=== PATIENT | female | born 1975 | race Caucasian/White ===

== ENCOUNTER 2018-02-24 13:40 | Emergency (ER) | payer MEDICAID, SELFPAY ==
[2018-02-24 13:41] VITALS: BP 137/82; PULSE 60; RESP 18; TEMP 36.6; O2SAT 97; BMI 47.9
--- NOTE | 2018-02-24 13:57 | ED.VISSUMM ---
- ER Visit Summary Date of Service: 02/24/18 Chief Complaint: Sore throat ?1 month and blood noted in spit History of Present Illness: The patient is a 42 F who reports sore throat for the past month. She localizes the discomfort to the larynx region. He has not noted change in voice. There is been no drooling. There is no pain with swallowing. She denies night sweats, weight gain or weight loss. She states she rinsed her dentures and when she expectorated she noted blood. She states she did not brush her lower teeth. She is concerned that the blood may represent cancer since she had a recent biopsy of a facial lesion which was positive for cancer. Patient denies any double vision, blurred vision or change in vision. She denies earache. Discharge, tinnitus or decreased hearing. She denies nasal congestion, rhinorrhea or postnasal drainage. She denies any chest pain, shortness of breath or difficulty breathing. She denies bruising easily or problems with bleeding. She is on no anticoagulant. Physical Examination: Vital signs are remarkable for slight elevation blood pressure 137/82. BMI is 47.9. Head is atraumatic normocephalic. Pupils are equal round reactive. Extraocular muscles are intact. TMs are pearly white with landmarks noted. Nares patent with no drainage. Posterior pharynx without erythema or exudate. Uvula is midline. There is no dysphonia or dysphasia. Trachea is midline. There is no stridor with auscultation of the neck. There is no discomfort with movement of the larynx. Heart is regular without murmur, gallop or rub. S1 and S2 are normal. Lungs are clear to auscultation with good movement of air bilaterally. She is alert and oriented with a nonfocal neurologic exam. She has a well-healing incision right maxillary region secondary to skin biopsy. Test Results: Two-view soft tissue x-ray of the neck reveals a normal epiglottis, normal prevertebral space. Normal cervical vertebral bodies and no evidence of enlarged lingular tonsils. Emergency Department Course and Treatment: Because patient points to the larynx reported blood will obtain soft tissue neck looking for evidence of epiglottitis, retropharyngeal abscess parapharyngeal swelling etc. Treatment Plan: Follow-up with Dr. Rhoades Disposition: Discharged to home Impression: Throat pain ?1 month Expectorated blood unknown cause This note was generated with [employer] dictation software. It may contain incorrect words, spelling, and punctuation that were not noted in review of the chart prior to signing ED Disposition - Plan for ED Patient: Disposition: Home or Assisted Living Chief Complaint: Sore Throat Instructions: ED Acute Pain [facility] Referrals: Nanci Rhoades MD [Primary Care Provider] - 3-5 Days if not improving
--- NOTE | 2018-02-24 14:00 | ED.DCSUM_ITS ---
- ER Visit Summary Date of Service: 02/24/18 Chief Complaint: Sore throat ?1 month and blood noted in spit History of Present Illness: The patient is a 42 F who reports sore throat for the past month. She localizes the discomfort to the larynx region. He has not noted change in voice. There is been no drooling. There is no pain with swallowing. She denies night sweats, weight gain or weight loss. She states she rinsed her dentures and when she expectorated she noted blood. She states she did not brush her lower teeth. She is concerned that the blood may represent cancer since she had a recent biopsy of a facial lesion which was positive for cancer. Patient denies any double vision, blurred vision or change in vision. She denies earache. Discharge, tinnitus or decreased hearing. She denies nasal congestion, rhinorrhea or postnasal drainage. She denies any chest pain, shortness of breath or difficulty breathing. She denies bruising easily or problems with bleeding. She is on no anticoagulant. Physical Examination: Vital signs are remarkable for slight elevation blood pressure 137/82. BMI is 47.9. Head is atraumatic normocephalic. Pupils are equal round reactive. Extraocular muscles are intact. TMs are pearly white with landmarks noted. Nares patent with no drainage. Posterior pharynx without erythema or exudate. Uvula is midline. There is no dysphonia or dysphasia. Trachea is midline. There is no stridor with auscultation of the neck. There is no discomfort with movement of the larynx. Heart is regular without murmur, gallop or rub. S1 and S2 are normal. Lungs are clear to auscultation with good movement of air bilaterally. She is alert and oriented with a nonfocal neurologic exam. She has a well-healing incision right maxillary region secondary to skin biopsy. Test Results: Two-view soft tissue x-ray of the neck reveals a normal epiglottis , normal prevertebral space. Normal cervical vertebral bodies and no evidence of enlarged lingular tonsils. Emergency Department Course and Treatment: Because patient points to the larynx reported blood will obtain soft tissue neck looking for evidence of epiglottitis , retropharyngeal abscess parapharyngeal swelling etc. Treatment Plan: Follow-up with Dr. Rhoades Disposition: Discharged to home Impression: Throat pain ?1 month Expectorated blood unknown cause This note was generated with [employer] dictation software. It may contain incorrect words, spelling, and punctuation that were not noted in review of the chart prior to signing ED Disposition - Plan for ED Patient: Disposition: Home or Assisted Living Chief Complaint: Sore Throat Instructions: ED Acute Pain [facility] Referrals: Nanci Rhoades MD [Primary Care Provider] - 3-5 Days if not improving
--- NOTE | 2018-02-24 14:05 | RAD_ITS ---
STUDY: X-RAY - SOFT TISSUE NECK REASON FOR EXAM: Female, 42 years old. One month history of sore throat. Hemoptysis. TECHNIQUE: AP and lateral view(s) of the neck were obtained. COMPARISON: None. FINDINGS: Normal visualized nasopharynx, oropharynx, hypopharynx. Normal epiglottis. Normal visualized subglottic tracheal air column. Normal prevertebral soft tissue structures. There are degenerative changes of the cervical spine with cervical spondylosis. Straightening of the normal lumbar lordosis. The soft tissue structures are unremarkable. RAD/Neck for Soft Tissue IMPRESSION: Degenerative changes of the cervical spine. Electronically Signed: Jameel Hernandez MD at 14:32 EDT Tel [phone], Service support ,
[2018-02-24 16:01] VITALS: BP 129/79; PULSE 54; RESP 16; O2SAT 96
== END 2018-02-24 16:03 | disposition home or self-care (01) ==
PROVIDERS: Emergency Provider Emergency Medicine; Family Provider Internal Medicine; PCP Internal Medicine
DX: R07.0 Pain in throat (principal); E66.9 Obesity, unspecified; F41.9 Anxiety disorder, unspecified; M54.2 Cervicalgia; Z85.828 Personal history of other malignant neoplasm of skin
CPT/HCPCS: 70360; 99282

== ENCOUNTER 2018-05-11 01:49 | Emergency (ER) | payer OTHER, SELFPAY ==
[2018-05-11 01:51] VITALS: BP 144/91; PULSE 88; RESP 20; TEMP 36.8; O2SAT 94; BMI 51.2
--- NOTE | 2018-05-11 02:03 | ED.VISSUMM ---
- ER Visit Summary Date of Service: 05/11/18 Chief Complaint: Left neck mass and chest pain History of Present Illness: The patient is a [address] Rhoades. She reports she has a lump on the left side of her neck that began approximately 1 week ago. Is been gradually increasing. She has a sharp pain that is 8 out of 10 with swallowing and 5 out of 10 when she is at rest. She denies any dental pain. She denies a sore throat. Patient reports that she has chest pain that is substernal began at 5 PM while she was anxious. This been a constant pressure that is not 10 at worst and 2 out of 10 currently. Is worsened by stress. It is relieved by relaxing. She does report she been mildly short of breath with this. No nausea, vomiting, or diaphoresis. Patient reports that she has been under a great deal of stress recently. She states that she had been on Celexa and BuSpar for anxiety and depression and that she stopped these on her own 1 month ago. She also reports that she has had similar symptoms with the chest pain with anxiety in the past. Physical Examination: Vitals: Stable. Afebrile. General: Well-nourished and well-developed. Head: Normocephalic atraumatic. HEENT: Pharyngeal erythema. No tonsillar exudate or enlargement. There is a approximately 1 cm tender anterior lymph node on the left. No pain with percussion her teeth. No focal abscess. No trismus. No edema in the floor of her mouth. Neck: Supple, no lymphadenopathy. No JVD. Nontender. Cardiovascular: Regular rate and rhythm. No murmurs. Respiratory: No respiratory distress. Clear to auscultation bilaterally. Abdominal: Soft, nontender, nondistended, normal bowel sounds. No guarding, rebound, or peritoneal signs. Back: Nontender. Extremities: Nontender, no edema. Skin: Normal color, no rash. Neurologic: Alert and oriented ?3. Cranial nerves II through XII are intact. Normal strength and sensation. Psych: Normal affect. Test Results: EKG is sinus at 69 is unchanged from 2008. Troponin is negative. Chem-7 is more for glucose 124. CBC is more for white count of 12.3. Strep is negative. Chest x-ray is normal. Emergency Department Course and Treatment: Patient was treated Toradol IV and is resting comfortably. Had a prolonged discussion with her about the etiology of the enlarged lymph node on the left. She was treated with a dose of amoxicillin p.o. Treatment Plan: Patient will be discharged on amoxicillin. I instructed her to follow-up her primary care physician 1 week for a repeat exam. She does understand if this is not improving with antibiotics ultimately she could require a biopsy of this to make sure that it is not a lymphoma. Also instructed follow-up her primary care physician for further evaluation of her chest pain. However, in the meantime I think that she should restart her BuSpar and Celexa. Return to the emergency department for any worsening symptoms. Disposition: To home in improved and stable condition. Impression: 1. Atypical chest pain. 2. Cervical adenitis. 3. GISSELL score of 0. This note was generated with [employer] dictation software. It may contain incorrect words, spelling, and punctuation that were not noted in review of the chart prior to signing ED Disposition - Plan for ED Patient: Disposition: Home or Assisted Living Chief Complaint: Chest Pain Instructions: ED Cervical Adenitis Abx Tx, ED Chest Pain Atypical Unkn Cause Prescriptions: Amoxicillin 500 mg PO TID #30 tablet Referrals: Nanci Rhoades MD [Primary Care Provider] - 1 Week
--- NOTE | 2018-05-11 02:15 | EKG12_ITS ---
Test Reason : CP Blood Pressure : / mmHG Vent. Rate : 069 BPM Atrial Rate : 069 BPM P-R Int : 142 ms QRS Dur : 082 ms QT Int : 398 ms P-R-T Axes : 030 019 014 degrees QTc Int : 426 ms Normal sinus rhythm with sinus arrhythmia Normal ECG Confirmed by RADHA GUY, OXANA ([id number]), slot editor MARCIA COE ([id number]) on 05/15/2018 3:40:17 PM Referred By: CRISS Confirmed By:OXANA GARCIA MD
--- NOTE | 2018-05-11 02:15 | RAD_ITS ---
STUDY: X-RAY CHEST REASON FOR EXAM: Female, 42 years old. Chest tightness and shortness of breath. TECHNIQUE: Single AP portable view of the chest. COMPARISON: Prior comparison studies are not available for review at this time. FINDINGS: The lungs are clear and expanded. There is no demonstrated pleural abnormality. Normal size heart. Normal mediastinum and lucita. Normal visualized pulmonary arteries. Normal visualized aortic arch and descending thoracic aorta. Normal visualized thoracic spine. Normal visualized ribs, clavicles, and shoulders. There is no demonstrated abnormality of the visualized soft tissue structures of the upper abdomen. RAD/Chest 1 View (Portable) IMPRESSION: No active pulmonary disease. Electronically Signed: Chandu Mcfarland MD at 2:35 EDT Tel , Service support ,
[2018-05-11] MEDS: Ketorolac 30 MG/ML Syringe IV (02:26)
[2018-05-11] MEDS: 0.9% Normal Saline 1,000 ML 150 ML IV (02:26)
[2018-05-11 02:28] LABS: Absolute Lymphocyte Count 4.39 X10^3/ul (0.83-4.51); Absolute Neutrophil Count 6.6 X10^3/uL (2.0-7.7); Basophil# 0.06 X10^3/uL; Basophil% 0.5 % (0-1); Eosinophil# 0.51 X10^3/uL; Eosinophils% 4.2 % (0-5); Hematocrit 43.4 % (37-47); Hemoglobin 14.1 g/dl (12.0-15.0); Lymphocyte # 4.39 X10^3/ul (4.0); Lymphocyte % 35.8 % (19-41); Mean Corp Hgb Conc 32.5 g/gl (32-36); Mean Corpuscular Hgb 27.5 pg (27.0-32.0); Mean Corpuscular Volume 84.6 fL (81-99); Monocyte# 0.67 X10^3/uL; Monocyte% 5.5 % (0-10); Neutrophil # 6.59 X10^3/uL (2.7-7.7); Neutrophil % 53.7 % (47-70); POSITIVE COUNT NO; POSITIVE DIFFERENTIAL NO; POSITIVE MORPHOLOGY NO; Platelet Count 349 K/mm3 (150-450); RBC Distribution Width CV 14.1 % (11.6-14.6); RBC Distribution Width SD 43.8 fl (35.1-43.9); Red Blood Count 5.13 M/mm3 (4.2-5.4); White Blood Count 12.3 K/mm3 (4.4-11.0)
[2018-05-11 02:46] LABS: Anion Gap 5 (5-15); BUN 7 mg/dL (7-18); BUN/Creat Ratio 8.2 RATIO (10-20); Calcium,Total 8.8 mg/dL (8.5-10.1); Chloride 106 mmol/L (98-107); Creatinine, Serum 0.86 mg/dL (0.55-1.02); EST Glomerular Filtration Rate 78 mL/min (>60); Est Glom Filt Rate - Afr Amer 94 mL/min (>60); Estimated Creatinine Clearance 75.09 ml/min; Glucose 124 mg/dL (74-106); Potassium 3.9 mmol/L (3.5-5.1); Sodium Level 139 mmol/L (136-145)
[2018-05-11 02:54] VITALS: BP 123/78; PULSE 71; RESP 19; O2SAT 96
[2018-05-11] MEDS: AMOXICILLIN 500 MG CAPSULE PO (02:59)
== END 2018-05-11 03:00 | disposition home or self-care (01) ==
LOC: ED 02:47
PROVIDERS: Emergency Provider Emergency Medicine; Family Provider Internal Medicine; PCP Internal Medicine
DX: R07.89 Other chest pain (principal); I88.9 Nonspecific lymphadenitis, unspecified; F32.9 Major depressive disorder, single episode, unspecified; F41.9 Anxiety disorder, unspecified; E78.00 Pure hypercholesterolemia, unspecified; J45.909 Unspecified asthma, uncomplicated; M79.7 Fibromyalgia
CPT/HCPCS: 71045; 80048; 84484; 85025; 87880; 93005; 99285; J7030; A4216

== ENCOUNTER 2018-08-04 15:30 | Emergency (ER) | payer SELFPAY ==
[2018-08-04 15:31] VITALS: BP 124/84; PULSE 109; RESP 18; TEMP 36.6; O2SAT 95; BMI 47.5
--- NOTE | 2018-08-04 15:40 | ED.RN ---
c/o right flank pain and right shoulder pain.
--- NOTE | 2018-08-04 15:49 | ED.VISSUMM ---
- ER Visit Summary Date of Service: 08/04/18 Chief Complaint: Abdominal pain History of Present Illness: The patient is a 42 F with a 2-month history of intermittent right upper quadrant pain that is worsened over the past couple of days. She reports having diarrhea with occasional nausea and vomiting. She reports a subjective fever last night. She did eat [employer] for lunch today, proximal 1 hour prior to arrival. She does state the pain seems to be worse with greasy foods or with tomato-based products. She had been told in the past that her gallbladder was not functioning well and had some sludge. Physical Examination: Vital signs significant only for heart rate of 109. Patient sitting upright in bed no acute distress. Head and neck examination unremarkable. Heart is slightly tachycardic and regular. Lung sounds are clear. Abdomen is soft with tenderness in the right upper quadrant. There is no guarding. Hypoactive bowel sounds are noted throughout. Test Results: CBC and chemistry studies normal. LFTs significant only for an alk phos of 119, otherwise normal. Lipase is normal. Right upper quadrant ultrasound shows a normal partially contracted gallbladder. Emergency Department Course and Treatment: Patient was given IV fluids and Zofran here. She did not require anything further for pain. I did discuss with her that I do have concern that the gallbladder is her cause of pain, although it is not acutely infected. She will follow-up with surgery for a probable HIDA scan. Treatment Plan: [] Disposition: Discharge Impression: Right upper quadrant pain This note was generated with [employer] dictation software. It may contain incorrect words, spelling, and punctuation that were not noted in review of the chart prior to signing ED Disposition - Plan for ED Patient: Chief Complaint: Abd Pain Referrals: Nanci Rhoades MD [Primary Care Provider] -
[2018-08-04] MEDS: Ondansetron 4 MG/2 ML Vial IV (15:57)
[2018-08-04] MEDS: 0.9% Normal Saline 1,000 ML 150 ML IV (15:57)
[2018-08-04 16:15] LABS: Absolute Lymphocyte Count 3.55 X10^3/ul (0.83-4.51); Absolute Neutrophil Count 4.9 X10^3/uL (2.0-7.7); Basophil# 0.06 X10^3/uL; Basophil% 0.6 % (0-1); Eosinophil# 0.38 X10^3/uL; Hematocrit 46.1 % (37-47); Lymphocyte # 3.55 X10^3/ul (4.0); Lymphocyte % 37.4 % (19-41); Mean Corp Hgb Conc 32.5 g/gl (32-36); Mean Corpuscular Hgb 27.3 pg (27.0-32.0); Mean Platelet Vol. 9.7 fl (6.2-12.0); Monocyte# 0.53 X10^3/uL; Monocyte% 5.6 % (0-10); Neutrophil # 4.94 X10^3/uL (2.7-7.7); Neutrophil % 52.2 % (47-70); Platelet Count 403 K/mm3 (150-450); RBC Distribution Width SD 43.2 fl (35.1-43.9); Red Blood Count 5.49 M/mm3 (4.2-5.4); White Blood Count 9.5 K/mm3 (4.4-11.0)
[2018-08-04 16:25] LABS: POSITIVE COUNT NO; POSITIVE DIFFERENTIAL NO; POSITIVE MORPHOLOGY NO
[2018-08-04 16:33] LABS: AST(SGOT) 36 U/L (15-37); Alanine Aminotransfer ALT/SGPT 56 U/L (13-56); Albumin, Serum 3.3 g/dL (3.2-5.0); Alkaline Phosphatase 119 U/L (45-117); Anion Gap 10 (5-15); BUN 9 mg/dL (7-18); BUN/Creat Ratio 9.9 RATIO (10-20); Bilirubin, Direct 0.09 mg/dL (0.00-0.30); Chloride 104 mmol/L (98-107); EST Glomerular Filtration Rate 73 mL/min (>60); Est Glom Filt Rate - Afr Amer 88 mL/min (>60); Globulin 4.7 g/dL (2.2-4.2); Glucose 101 mg/dL (74-106); Lipase 113 U/L (73-393); Potassium 3.6 mmol/L (3.5-5.1); Sodium Level 142 mmol/L (136-145)
--- NOTE | 2018-08-04 16:38 | US_ITS ---
STUDY: ABDOMINAL ULTRASOUND - RIGHT UPPER QUADRANT REASON FOR VISIT: Female, 42 years old. Right upper quadrant pain TECHNIQUE: Ultrasound evaluation of the right upper quadrant was performed with real-time and static fuller-scale imaging. TECHNICAL QUALITY: Adequate. COMPARISON: Prior abdomen and pelvic CT exam of 03/14/2016 FINDINGS: Liver: The liver measures 22 cm. There is increased echogenicity consistent with fatty infiltration. The bile ducts are within normal limits. There is no demonstrated mass lesion. Gallbladder: Partly contracted gallbladder. The gallbladder wall measures 2 mm. There is a negative sonographic Moy's sign. There is no pericholecystic fluid. There are no gallstones. Common Bile Duct (C.B.D.): The common bile duct measures 4 mm. Pancreas: Normal size of the head, body and tail of the pancreas. There is normal echogenicity of the pancreas. There is no demonstrated pancreatic mass or cyst. Right Kidney: Normal size of the right kidney. The right kidney measures 11.8 x 6.4 x 5.2 cm. Normal renal cortex. The right cortex measures 1.5 cm. There is no demonstrated renal mass or cyst. There is no right hydronephrosis. US/Gallbladder IMPRESSION: Fatty hepatomegaly. Normal partly contracted gallbladder. Normal pancreas and right kidney. Electronically Signed: Erna oRcha MD at 17:34 EST , Service support ,
[2018-08-04 17:31] VITALS: PULSE 83; RESP 16
--- NOTE | 2018-08-04 17:57 | ED.DEP ---
ED Disposition - Plan for ED Patient: Disposition: Home or Assisted Living Chief Complaint: Abd Pain Instructions: ED Abdominal Pain Unkn Cause Prescriptions: Ondansetron [Zofran Odt] 4 mg PO Q8H PRN PRN #10 tablet PRN Reason: Nausea Referrals: Jeancarlos Milian MD [STAFF PHYSICIAN] - As soon as possible
[2018-08-04 18:20] VITALS: RESP 16
== END 2018-08-04 18:20 | disposition home or self-care (01) ==
PROVIDERS: Emergency Provider Emergency Medicine; Family Provider Internal Medicine; PCP Internal Medicine
DX: R10.11 Right upper quadrant pain (principal); R11.2 Nausea with vomiting, unspecified; R19.7 Diarrhea, unspecified; K21.9 Gastro-esophageal reflux disease without esophagitis; J45.909 Unspecified asthma, uncomplicated; E78.00 Pure hypercholesterolemia, unspecified
CPT/HCPCS: 76705; 80048; 80076; 83690; 85025; 96361; 96374; 96375; 99283; J7030; J2405

== ENCOUNTER 2019-10-04 10:25 | Emergency (ER) | payer MEDICAID, SELFPAY ==
[2019-10-04 10:27] VITALS: BP 149/80; PULSE 118; RESP 16; TEMP 36.7; O2SAT 93; BMI 51.5
--- NOTE | 2019-10-04 10:44 | ED.VIS.GEN ---
History of Present Illness Chief Complaint: Cold Sx Detail of Chief Complaint: Cough, nasal congestion and wheezing trouble breathing Informant: Patient Onset: Yesterday Context: Sudden Onset Timing: Intermittent Quality: URI symptoms Location: Upper respiratory Current Severity: Mild Maximum Severity: Moderate Worsened by: Coughing Relieved by: Nothing Associated Symptoms: Subjective fever Narrative: Patient is a 44-year-old woman with history of asthma who presents with URI symptoms that started yesterday. She does have a cough productive of white-colored sputum. She has not used an inhaler in years. She is a non-smoker. She denies headache, photophobia, neck pain or neck stiffness. She denies ear pain, decreased hearing or ringing or ears. She states she has tight sensation in her chest when she coughs. He denies chest pain. She denies dyspnea on exertion. Denies orthopnea PND. She denies GI symptoms. She is not noted a rash. Prior similar symptoms: Yes Recent Illness/Hospitalization: No - Past Medical History (1) Asthma Status: Acute Past Medical History - Allergies and Home Meds Allergies/Adverse Reactions: Allergies Iodinated Contrast Media Allergy (Verified 10/04/19 10:27) Anaphylaxis Sulfa (Sulfonamide Antibiotics) Allergy (Verified 10/04/19 10:26) Unknown lactose Adverse Reaction (Verified 10/04/19 10:27) Nausea/Vom/Diarrhea Primary Care Physician: Nanci Rhoades MD [Primary Care Provider] - Prior records reviewed: Yes Surgical History: noncontributory Lives: With Family Smoking Status: Never smoker Alcohol: None Drugs: None Review of Systems General: Reports: Fever, Subjective. Denies: Chills, Malaise Eyes: Denies: Visual changes - bilaterally, Blurred Vision - bilaterally ENT: Reports: Rhinorrhea. Denies: Bilateral ear pain, Sore throat Cardiovascular: Reports: Chest pain. Denies: Palpitations, Heart racing Respiratory: Reports: Dyspnea, Cough, Sputum. Denies: Dyspnea on exertion, Orthopnea, Paroxysmal nocturnal dyspnea Gastrointestinal: Denies: Abdominal pain, Nausea, Vomiting, Diarrhea, Melena, Hematochezia Genitourinary: Denies: Dysuria, Hematuria, Frequency Musculoskeletal: Denies: Myalgias, Arthralgias, Neck pain, Back pain, Swelling, Extremity Pain, -, - Skin: Denies: Rash Neurological: Denies: Headache, Weakness Hematologic: Denies: Easy bruising, Easy bleeding Physical Exam Vital Signs/Narrative: Vital Signs Temp Pulse Resp BP Pulse Ox 10/04/19 10:27 98.1 F 118 H 16 149/80 H 93 Inital Vital Signs reviewed: Yes General: Well nourished, Well developed, Obese, No Acute Distress Head: Normocephalic, Atraumatic Eyes: Perrl, EOMI. Negative for: Pale conjunctiva, Scleral icterus ENT: Moist mucous membranes, TM's clear, Nasal congestion. Negative for: No rhinorrhea, Sinus tenderness Neck: Supple, Nontender, No lymphadenopathy, No JVD Cardiovascular: Regular rhythm, No murmurs, Normal S1, Normal S2, Tachycardia Respiratory: No distress, CTA bilaterally, Chest nontender Abdomen: Soft, Nontender, Nondistended, Normal bowel sounds Skin: Normal color, No rash Neurological: Alert, Oriented x3, Cranial nerves II-XII grossly intact, Normal Strength, Normal Sensation Psychological: Normal affect, Normal Mood Diagnostic/Tx/Re-eval - Medical Decision Making Presents with respiratory symptoms started 2 days ago. With history of asthma she has slight wheezing with forced expiration only. Laboratory testing imaging was not obtained. Patient was treated with prednisone and given a prescription for albuterol. ED Disposition - Plan for ED Patient: Disposition: Home or Assisted Living Diagnosis: Bronchospasm with bronchitis, acute Instructions: BRONCHITIS, No Antibiotic (Adult) Prescriptions: Prednisone [Deltasone] 40 mg PO DAILY #10 tab Transmission Status: Pending to [facility] Albuterol Inhaler [Ventolin Hfa] 2 puff INHALATION Q4H PRN PRN #1 inhaler PRN Reason: Wheezing Transmission Status: Pending to [facility] Referrals: Nanci Rhoades MD [Primary Care Provider] - 10-14 Days if not better
== END 2019-10-04 11:05 | disposition home or self-care (01) ==
LOC: ED 10:56
PROVIDERS: Emergency Provider Emergency Medicine; PCP Internal Medicine
DX: J20.9 Acute bronchitis, unspecified (principal); J45.909 Unspecified asthma, uncomplicated; Z88.2 Allergy status to sulfonamides
CPT/HCPCS: 99282

== ENCOUNTER 2020-05-09 22:37 | Emergency (ER) | payer OTHER, MEDICAID, SELFPAY ==
[2019-10-15 15:17] VITALS: BMI 51.5
[2020-05-09 22:37] VITALS: BP 181/110; PULSE 95; RESP 16; TEMP 36.3; O2SAT 98; BMI 52.2
--- NOTE | 2020-05-09 23:10 | ED.DCSUM_ITS ---
History of Present Illness Chief Complaint: Abd Pain Informant: Patient - Abdominal Pain/Flank Pain Onset: Hours - 3 Context: Gradual Onset Timing: Continuous Quality: Aching Location: LLQ, Left Flank Current Severity: Mild Maximum Severity: Severe Worsened by: Nothing Relieved by: - - tylenol - Nausea/Vomiting/Emesis GI Symptom: Negative for: Nausea, Vomiting - Diarrhea/Melena/Hematochezia GI Symptom: Diarrhea, Hematochezia. Negative for: Melena Onset: Today Stool Quality: Loose Associated Symptoms: Negative for: Dysuria, Frequency, Hematuria, Urgency Narrative: Patient states she has been having this pain off and on, approximately twice a month or so, for the past 3 years. When she has the pain, it is associated with diarrhea, which she had about 30 or 40 minutes after the pain started tonight. It was grossly bloody. She has been having the blood for about 5 years. She has noticed that [place] or spicy foods sometimes cause this, sometimes lactose- containing foods so she avoids those. The last time she had [place] food was 4 or 5 days ago. She had a colonoscopy several months ago at the [facility] and she states they did not find anything. She has had a CT scan before. The reason she presents tonight is because she was pulling a double shift at work, close to the end of it relatively, she started having this pain and was in tears, her daughter works there with her, and she brought this to the attention of the boss and he made her leave and come to the hospital. She states she took Tylenol and she is feeling much better now than she was earlier. This is the same symptoms that she has had intermittently for the past several years. Prior similar symptoms: Yes - episodically for the past 3-5 yrs Past Medical History - Allergies and Home Meds Allergies/Adverse Reactions: Allergies Iodinated Contrast Media Allergy (Verified 05/09/20 22:40) Anaphylaxis Sulfa (Sulfonamide Antibiotics) Allergy (Verified 05/09/20 22:40) Unknown lactose Adverse Reaction (Verified 05/09/20 22:40) Nausea/Vom/Diarrhea Primary Care Physician: Nanci Rhoades MD [Primary Care Provider] - Surgical History: noncontributory Smoking Status: Never smoker Review of Systems General: Denies: Chills, Fever, Sweats Eyes: Denies: Visual changes - bilaterally, Diplopia ENT: Denies: Rhinorrhea, Sore throat Cardiovascular: Denies: Chest pain, Palpitations Respiratory: Denies: Dyspnea, Cough, Dyspnea on exertion Gastrointestinal: Reports: Abdominal pain, Diarrhea, Hematochezia. Denies: Nausea, Vomiting, Melena Genitourinary: Denies: Dysuria, Hematuria, Frequency Musculoskeletal: Reports: Back pain. Denies: Extremity Pain Skin: Denies: Rash, Wounds Neurological: Denies: Headache, Weakness, Numbness Physical Exam Vital Signs/Narrative: Vital Signs Temp Pulse Resp BP Pulse Ox 05/09/20 22:37 97.3 F L 95 16 181/110 H 98 Inital Vital Signs reviewed: Yes General: Well nourished, Well developed, Obese, No Acute Distress Head: Normocephalic, Atraumatic Eyes: Perrl, EOMI ENT: Moist mucous membranes, No rhinorrhea Neck: Supple, Nontender Cardiovascular: Regular rate, Regular rhythm, No murmurs Respiratory: No distress, CTA bilaterally, Chest nontender Abdomen: Soft, Nondistended, Normal bowel sounds, Tender - mild throughout LLQ only; less laterally. Negative for: Guarding, Rebound tenderness, Pulsatile mass Back: Nontender, Normal Inspection. Negative for: CVA tenderness Extremities: Nontender, No edema. Negative for: Calf Tenderness Skin: Normal color, No rash, No Trauma Neurological: Alert, Oriented x3, Cranial nerves II-XII grossly intact, Normal Strength, Normal Sensation, Normal Gait Psychological: Normal affect, Normal Mood Diagnostic/Tx/Re-eval Impressions Abdomen/Pelvis CT 05/10/20 00:05 IMPRESSION: Normal unenhanced CT of the abdomen and pelvis. Electronically Signed: Mauricio Lopez, at 0:45 EDT Tel , Service support , 05/10/20 00:05 Abdomen/Pelvis without Cont [CT] Stat Laboratory Results 05/09/20 05/09/20 05/09/20 23:00 23:00 23:00 WBC 14.0 H RBC 5.29 Hgb 14.4 Hct 44.7 MCV 84.5 MCH 27.2 MCHC 32.2 RDW Std Deviation 43.3 RDW Coeff of Sona 14.0 Plt Count 400 MPV 10.2 Immature Gran % (Auto) 0.600 Neut % (Auto) 54.6 Lymph % (Auto) 34.1 [place] % (Auto) 6.6 Eos % (Auto) 3.5 Baso % (Auto) 0.6 Absolute Neuts (auto) 7.6 Absolute Lymphs (auto) 4.77 H Nucleated RBC % 0 Sodium 140 Potassium 3.8 Chloride 107 Carbon Dioxide 27.0 Anion Gap 6 BUN 13 Creatinine 0.99 Estim Creat Clear Calc 63.92 Est GFR (MDRD) Af Amer 79 Est GFR (MDRD) Non-Af 66 BUN/Creatinine Ratio 13.2 Glucose 95 Calcium 9.6 Urine Color Yellow Urine Clarity Clear Urine pH 5.0 Ur Specific [place] 1.025 Urine Protein 30 H Urine Glucose (UA) Normal Urine Ketones Negative Urine Occult Blood 50 H Urine Nitrite Negative Urine Bilirubin Negative Urine Urobilinogen Normal Ur Leukocyte Esterase 25 H Urine RBC 0-5 SEEN Urine WBC 5-10 SEEN Ur Squamous Epith Cells 5-10 SEEN Ur Transition Epith Cell 0-5 SEEN Urine Bacteria 4+ Urine Mucus 0 SEEN - Medical Decision Making Patient was treated with IV Toradol and oral Bentyl, this did help her pain. Given her symptoms of lower GI bleeding, I did run some blood work. Her hemoglobin is stable and there is no anemia, but she has a leukocytosis at 14. Given that although her symptoms are chronic, I chose to CT her abdomen/pelvis to ensure that we were not missing anything acute. CT is negative. This rules out diverticulitis essentially, kidney stone, her urine shows no infection and there is no sign of pyelonephritis or hydronephrosis on the CT, all of which were in the differential diagnosis. Also in it, his colitis which this patient is experiencing symptoms of. She states her colonoscopy was negative, however I think she should revisit her GI doctor as symptomatically/historically this sounds related to the colon. Given a prescription for dicyclomine she is comfortable with that plan. ED Disposition - Plan for ED Patient: Disposition: Home or Assisted Living Diagnosis: LLQ abdominal pain, Bloody diarrhea Instructions: ED Abdominal Pain Unkn Cause Fem Prescriptions: Dicyclomine HCl [Bentyl] 20 mg PO Q4H PRN #20 cap PRN Reason: abdominal pain Prescription Printed Referrals: Nanci Rhoades MD [Primary Care Provider] - (and/or your GI specialist)
[2020-05-09 23:14] LABS: Mucous, Urine 0 SEEN /hpf (<or=2+)
[2020-05-09 23:15] LABS: Color, Urine Yellow (Yellow); Glucose, Dipstick Normal (Normal); Ketone-Dipstick Negative (Negative); Leukocyte Esterase-Dipstick 25 /ul (Negative); Nitrite-Dipstick Negative (Negative); Occult Blood-Urine 50 /ul (Negative); Protein-Dipstick 30 mg/dl (Negative); Specific Gravity, Urine 1.025 (1.002-1.030); Urine Bilirubin Dipstick Negative (Negative); Urine Clarity Clear (Clear); Urine Urobilinogen Normal (Normal)
[2020-05-09 23:17] LABS: Absolute Lymphocyte Count 4.77 X10^3/uL (0.83-4.51); Absolute Neutrophil Count 7.6 X10^3/uL (2.0-7.7); Basophil# 0.09 X10^3/uL; Basophil% 0.6 % (0-1); Eosinophil# 0.49 X10^3/uL; Eosinophils% 3.5 % (0-5); Hematocrit 44.7 % (37-47); Hemoglobin 14.4 g/dL (12.0-15.0); Lymphocyte # 4.77 X10^3/ul (4.0); Lymphocyte % 34.1 % (19-41); Mean Corp Hgb Conc 32.2 g/dL (32-36); Mean Corpuscular Hgb 27.2 pg (27.0-32.0); Mean Corpuscular Volume 84.5 fL (81-99); Mean Platelet Vol. 10.2 fl (6.2-12.0); Monocyte# 0.92 X10^3/uL; Monocyte% 6.6 % (0-10); NRBC Flagged by Analyzer 0 % (0-5); Neutrophil # 7.63 X10^3/uL (2.7-7.7); Neutrophil % 54.6 % (47-70); Platelet Count 400 K/mm3 (150-450); RBC Distribution Width SD 43.3 fl (35.1-43.9); Red Blood Count 5.29 M/mm3 (4.2-5.4)
[2020-05-09 23:23] LABS: White Blood Cells 5-10 SEEN /hpf (0-5)
[2020-05-09 23:28] LABS: Bacteria 4+ /hpf (None Seen); Squamous Epithelial Cells - UA 5-10 SEEN /hpf (5-10)
[2020-05-09 23:29] LABS: Red Blood Cells-Urine 0-5 SEEN /hpf (0-5)
[2020-05-09 23:30] LABS: Transitional Epithelial - Ur 0-5 SEEN /hpf (0-5)
[2020-05-09] MEDS: Ketorolac 30 MG/ML Syringe IV (23:36)
[2020-05-09] MEDS: Dicyclomine 10 MG Capsule 20 MG PO (23:36)
[2020-05-09 23:38] LABS: Anion Gap 6 (5-15); BUN 13 mg/dL (7-18); BUN/Creat Ratio 13.2 RATIO (10-20); Calcium,Total 9.6 mg/dL (8.5-10.1); Chloride 107 mmol/L (98-107); Creatinine, Serum 0.99 mg/dL (0.55-1.02); EST Glomerular Filtration Rate 66 mL/min (>60); Est Glom Filt Rate - Afr Amer 79 mL/min (>60); Estimated Creatinine Clearance 63.92 ml/min; Glucose 95 mg/dL (74-106); Potassium 3.8 mmol/L (3.5-5.1); Sodium Level 140 mmol/L (136-145)
--- NOTE | 2020-05-10 00:05 | CT_ITS ---
STUDY: CT ABDOMEN AND PELVIS WITHOUT CONTRAST REASON FOR EXAM: Female, 44 years old. LLQ PAIN/LEUKOCYTOSIS. Prior hysterectomy and single oopherectomy RADIATION DOSAGE (If Supplied By Facility): CTDIvol = ( 24.00 ) mGy, DLP = ( 1325.22 ) mGycm TECHNIQUE: Transaxial images were obtained from the dome of the diaphragm to the symphysis pubis without oral contrast, and without intravenous contrast. Sagittal and coronal images were reconstructed. Individualized dose optimization techniques were used for this CT. COMPARISON: None. FINDINGS: The visualized lung bases are unremarkable. The visualized portions of the heart are within normal limits. Normal liver. Normal gallbladder and extrahepatic biliary system. Normal spleen. Normal pancreas. Normal bilateral adrenal glands. Normal right kidney. Normal left kidney. Normal visualized stomach. Normal small intestine. Normal colon. The appendix is visualized and appears normal. Normal abdominal aorta. Normal inferior vena cava. Normal retroperitoneum. Normal urinary bladder. Normal abdominal wall. Normal osseous structures. CT/Abdomen/Pelvis without Cont IMPRESSION: Normal unenhanced CT of the abdomen and pelvis. Electronically Signed: Mauricio Lopez, at 0:45 EDT Tel , Service support ,
== END 2020-05-10 01:50 | disposition home or self-care (01) ==
PROVIDERS: Emergency Provider Emergency Medicine; PCP Internal Medicine
DX: R10.32 Left lower quadrant pain (principal); R19.7 Diarrhea, unspecified; E66.9 Obesity, unspecified
CPT/HCPCS: 74176; 80048; 81001; 85025; 96374; 99283; A4216

== ENCOUNTER → 2020-07-14 14:18 | Outpatient (CLI) | payer OTHER, MEDICAID, SELFPAY | PROVIDERS: PCP Internal Medicine; Referring Provider Physician Assistant Surgical; Visit Provider Physician Assistant Surgical | DX: R68.89 Other general symptoms and signs (principal) | CPT/HCPCS: 87635; U0003 ==

== ENCOUNTER 2023-08-22 12:27 | Emergency (ER) | payer OTHER, MEDICAID, SELFPAY ==
[2023-08-22 12:28] VITALS: BP 143/99; PULSE 72; RESP 20; TEMP 36.1; O2SAT 100; BMI 54.4
--- NOTE | 2023-08-22 13:32 | ED.RN ---
pts name called in triage 3x and pt does not come to the desk. chart moved to the side,
--- OUTSIDE RECORDS SUMMARY | 2023-08-22 15:00 | XMS RPT_ITS | CCD ---
Author Name Unknown Address [address] [place] [address] Organization [facility] Care Team Providers Care Dish Up Person Name Role Phone GLADIS GEOFFREY Unavailable Unavailable BODJANAC, GEOFFREY Unavailable Unavailable BODJANAC, GEOFFREY Unavailable Unavailable BODJANAC, GEOFFREY Unavailable Unavailable Max Quiñonez Unavailable Unavailable Max Quiñonez Unavailable Unavailable Talampas, Cheryl D Unavailable Unavailable Max Quiñonez Unavailable Unavailable Max Quiñonez Unavailable Unavailable Talampas, Cheryl D Unavailable Unavailable Talampas, Cheryl Unavailable KATELYNN, JUAN RAMON (ZAHIRA) Unavailable Unavailable KATELYNN JUAN RAMON (ZAHIRA) Unavailable Unavailable Jf Cheryl Primary Care Provider [phone] Santo Castillo Unavailable Unavailable Unavailable Required, No Pcp Unavailable Unavailable Santo Castillo Unavailable Chadwick Morgan Unavailable UnavailRena Galvez CNP Primary Care Provider Santo Castillo DO Unavailable RENA FOX Primary Care Unavailable SYSTEM, PROVIDER NOT IN Referring Unavailestefanía montes SYSTEM, PROVIDER NOT IN Attending UnavailCheryl Gao MD Primary Care Provider [phone] Unavailable Unavailable Santo Castillo DO Primary Care Provider [phone] Cheryl Simpson MD Primary Care Provider Jf GUY, Cheryl D Primary Care Provider Kalen Hearn Unavailable Unavailable Castillo DO, Santo Primary Care Provider [phone] Shauna Ibarra Unavailable Castillo DO, Santo Unavailable Castillo DO, Santo Primary Care Provider Castillo DO, Santo A Primary Care Provider Castillo DO, Santo A Unavailable CASTILLO, SANTO Primary Care Unavailable CASTILLO, SANTO Primary Care Unavailable IVÁN ANTUNEZ Attending Unavailable CASTILLO, SANTO Primary Care Unavailable CASTILLO, SANTO Primary Care Unavailable APOLINAR ELIZONDO Attending Unavailable COE, ROSA Referring Unavailable BOROFF, YURIY Attending Unavailable CASTILLO, SANTO Primary Care Unavailable MELITON RODRIGUEZ Attending Unavailable MELITON RODRIGUEZ Admitting Unavailable JACKYAMPMAYA, CHERYL Primary Care Unavailable BOROFF, YURIY Attending Unavailable SELF, SELF Referring Unavailable CASTILLO, SANTO Primary Care Unavailable MAHAD DENT Referring Unavailable MAHAD DENT Attending Unavailable CASTILLO, SANTO Primary Care Unavailable BOROFF, YURIY Attending Unavailable SELF, SELF Referring Unavailable CASTILLO, SANTO Primary Care Unavailable SELF, SELF Referring Unavailable CASTILLO, SANOT Primary Care Unavailable CHIN BAH Attending Unavailable BOROFF, YURIY Attending Unavailable CASTILLO, SANTO Primary Care Unavailable COE, ROSA Referring Unavailable BOROFF, YURIY Attending Unavailable SELF, SELF Referring Unavailable CASTLILO, SANTO Primary Care Unavailable MAHAD DENT Attending Unavailable SELF, SELF Referring Unavailable CASTILLO, SANTO Primary Care Unavailable BOROFF, YURIY Attending Unavailable CASTILLO, SANTO Primary Care Unavailable COE, ROSA Referring Unavailable BOROFF, YURIY Attending Unavailable CASTILLO, SNATO Primary Care Unavailable COE, ROSA Referring Unavailable BOROFF, YURIY Attending Unavailable SELF, SELF Referring Unavailable CASTILLO, SANTO Primary Care Unavailable CASTILLO, SANTO Primary Care Unavailable Castillo, Dr. Santo Sutton Attending Unavailab le Castillo, Dr. Santo Sutton Primary Care Unavailab le Castillo, Dr. Santo Sutton Primary Care Unavailab le TETOMD SHAUNA GUILLEN Attending Unavaila ble Castillo, Dr. Santo Sutton Primary Care Unavailab le HEARN, KALEN Tavares Attending Unavailable Castillo, Dr. Santo Sutton Attending Unavailab le Castillo, Dr. Santo Sutton Primary Care Unavailab le Castillo, Dr. Santo Sutton Attending Unavailab le Castillo, Dr. Santo Sutton Primary Care Unavailab le Castillo, Dr. Santo Sutton Referring Unavailab le CASTILLO, SANTO José Primary Care Unavailable Castillo, Dr. Santo Sutton Referring Unavailab le Castillo, Dr. Santo Sutton Attending Unavailab le Castillo, Dr. Santo Sutton Primary Care Unavailab le Thomae, Dr. Thom Kelly Attending Unavailable Castillo, Dr. Santo Sutton Primary Care Unavailab le Castillo, Dr. Santo Sutton Referring Unavailab le Castillo, Dr. Santo Sutton Referring Unavailab le Thomae, Dr. Thom Kelly Attending Unavailable Castillo, Dr. Santo Sutton Primary Care Unavailab le Castillo, Dr. Santo Sutton Referring Unavailab le Castillo, Dr. Santo Sutton Attending Unavailab le Castillo, Dr. Santo Sutton Primary Care Unavailab le Castillo, Dr. Santo Sutton Referring Unavailab le Castillo, Dr. Santo Sutton Primary Care Unavailab le Castillo, Dr. Santo Sutton Attending Unavailab le Castillo, Dr. Santo Sutton Primary Care Unavailab le Castillo, Dr. Santo Sutton Attending Unavailab le Castillo, Dr. Santo Sutton Referring Unavailab le Castillo, Dr. Santo Sutton Primary Care Unavailab le Castillo, Dr. Santo Sutton Attending Unavailab le Castillo, Dr. Santo Sutton Referring Unavailab le Castillo, Dr. Santo Sutton Primary Care Unavailab le Castillo, Dr. Santo Sutton Attending Unavailab le Castillo, Dr. Santo Sutton Referring Unavailab le Castillo Santo NASCIMENTO Unavailable [phone] SANTO CASTILLO Attending Unavailable CASTILLOSANTO Saavedra Referring Unavailable CASTILLOSANTO Primary Care Unavailable CASTILLOSANTO Attending Unavailable CASTILLOSANTO Primary Care Unavailable CASTILLO, SANTO A Attending Unavailable CASTILLO, SANTO A Primary Care Unavailable WHITLEY TINAJERO Attending U navailable CASTILLO, SANTO Primary Care Unavailable CASTILLO, SANTO Primary Care Unavailable MEERA ADAM Attending Unavailab DEBBIE Gibbs Attending Unava ilable CASTILLO, SANTO Primary Care Unavailable CASTILLO, SANTO Primary Care Unavailable CHRISTINA MONTANEZ Attending Unavailable CASTILLO, [place] Primary Care Unavailable TOMY PABLO Attending Unavaila ble DEBBIE PEGUERO Attending Unava ilable CASTILLO, SANTO Primary Care Unavailable Allergies Allergy Classification Reported Allergen(s) Allergy Type Date of Onset Reaction(s) Facility Bee/Wasp/Ant Venom (4 sources) apis mellifera venom Substance Allergy [place] [address] DO Work Phone: Lactose (4 sources) Lactose; Translations: [Lactose] Drug Allergy [place] [address] DO Work Phone: Sulfonamides (antibiotic) (4 sources) Sulfamethoxazole ; Translations: [sulfa] Drug Allergy Hives [place] [address] DO Work Phone: Unclassified (20 sources) Arthur Fruit Allergy to substance (finding) [place] [address] DO Work Phone: Unclassified (20 sources) Contrast Media Ready-Box MISC; Translations: [Contrast Media Ready-Box MISC] Allergy to drug (finding) [place] [address] DO Work Phone: (1 source) Bee/Wasp/Ant venom; Translations: [Bee Stings] Propensity to adverse reactions to drug (disorder) [facility] Repository (5 sources) Sulfonamides (Antibiotic); Translations: [sulfa drugs] Propensity to adverse reactions to drug (disorder) AOF, Hives/Urticaria , Hives [facility] Repository (1 source) Oranges and artificial orange; Translations: [Oranges and artificial orange] Propensity to adverse reactions to drug [facility]disorder[facility]) Sulfonamides (Antibiotic) Propensity to adverse reactions to drug 7 [facility] Work Phone: (7 sources) Black Pepper Preparation; Translations: [BLACK PEPPER] Drug Allergy 6 [facility] Repository (6 sources) Hitchcock juice; Translations: [ORANGE JUICE] Propensity to adverse reactions to drug (disorder) 4 [facility] Repository (6 sources) Sulfonamides (Antibiotic); Translations: [SULFA (SULFONAMIDE ANTIBIOTICS)] Propensity to adverse reactions to drug (disorder) 5 [facility] Repository (20 sources) BEE STING; Translations: [BEE STING] Propensity to adverse reactions (disorder) 9 [facility] Repository (20 sources) Diatrizoate Drug Allergy 9 [facility] (20 sources) bee venom Propensity to adverse reactions to drug 9 Anaphylaxis, Unknown [facility] (20 sources) Arthur Propensity to adverse reactions to drug 9 [facility] (4 sources) iodine containing compounds Anaphylaxis [facility] (20 sources) Lactose; Translations: [Lactose] Drug Allergy 3 Unknown [facility] 205 DO Work Phone: (20 sources) Sulfamethoxazole ; Translations: [sulfa] Drug Allergy 3 Hives [facility] 205 DO Work Phone: (1 source) Iodine Drug Allergy 9 Hives, Itching [facility] Work Phone: (5 sources) Iohexol; Translations: [IOHEXOL] Drug Allergy 9 Hives, Itching [facility] (4 sources) Bee/Wasp/Ant venom; Translations: [BEE STING KIT] Propensity to adverse reactions to drug (disorder) 9 [facility] Repository (4 sources) Diatrizoate; Translations: [DIATRIZOATE MEGLUMINE] Drug Allergy 9 Unknown [facility] Repository (4 sources) IODINE AND IODIDE CONTAINING PRODUCTS; Translations: [IODINE AND IODIDE CONTAINING PRODUCTS] Propensity to adverse reactions to drug (disorder) 1 Anaphylaxis [facility] Repository (4 sources) CITRUS AND DERIVATIVES; Translations: [CITRUS AND DERIVATIVES] Propensity to adverse reactions to drug (disorder) 9 Unknown [facility] Repository (4 sources) Iodinated Contrast Media; Translations: [IODINATED CONTRAST MEDIA] Drug Allergy 3 Anaphylaxis [facility] Work Phone: (2 sources) Sulfamethoxazole ; Translations: [SULFAMETHOXAZOL E] Drug Allergy 3 [facility] Repository (3 sources) BEE VENOM PROTEIN (HONEY BEE); Translations: [BEE VENOM PROTEIN (HONEY BEE)] Propensity to adverse reactions to drug (disorder) 3 [facility] Repository Medications Current Medications Medication Drug Class(es) Dates Sig (Normalized) Sig (Original) [id number] 200 actuat albuterol 0.09 mg/actuat metered dose inhaler (20 sources) beta2-Adrenergic Agonist Start: 04-15-2023 take 1 puff(s) by inhalation every four hours for wheezing albuterol (Ventolin HFA) 90 mcg/actuation inhaler Indications: Asthma, unspecified asthma severity, unspecified whether complicated, unspecified whether persistent Inhale 1 puff every 4 hours if needed for wheezing. 18 g 3 04/15/2023 Active Completed/Discontinued Medications Medication Drug Class(es) Dates Sig (Normalized) Sig (Original) acetaminophen 32 mg/ml oral suspension (20 sources) Start: 08-16-2022 take 5 mL by mouth every four to six hours as needed Tylenol Childrens 160 MG/5ML Oral Suspension TAKE 5 ML EVERY 4 TO 6 HOURS NEEDED. Quantity: 1 Refills: 3 Ordered: 16-Aug-2022 Santo Castillo DO Start : 16-Aug-2022 Active Problems Active Problems Problem Classification Problem Date Documented Da te Episodic/Chronic Acquired foot deformities (1 source) Acquired hallux valgus; Translations: [Hallux valgus (acquired), unspecified foot] Onset: 04-21-2011 04-21-2011 Chronic Anxiety disorders (20 sources) Anxiety; Translations: [Anxiety state, unspecified] Onset: 09-06-2007 Chronic Asthma (20 sources) Asthma; Translations: [Asthma, unspecified type, unspecified] Onset: 06-16-2006 Chronic Diabetes mellitus without complication (4 sources) Type 2 diabetes mellitus without complication; Translations: [Type 2 diabetes mellitus without complications] Onset: 06-25-2022 Chronic Diseases of white blood cells (2 sources) Leukocytosis; Translations: [Leukocytosis, unspecified] Onset: 01-22-2014 01-22-2014 Chronic Past or Other Problems Problem Classification Problem Date Documented Da te Episodic/Chronic Abdominal pain (9 sources) Lower abdominal pain; Translations: [Upper abdominal pain] Onset: 05-18-2021 Episodic Administrative/social admission (2 sources) Dietary counseling and surveillance; Translations: [Dietary counseling and surveillance] Onset: 08-23-2022 Episodic Allergic reactions (1 source) Allergy status to sulfonamides status; Translations: [Allergy status to sulfonamides] Onset: 08-21-2022 Episodic Blindness and vision defects (20 sources) Blurring of visual image; Translations: [Other specified visual disturbances] Onset: 04-01-2014 Resolved: 12-14-2022 04-01-2014 Episodic Diabetes mellitus without complication (20 sources) Prediabetes; Translations: [Other abnormal glucose] Onset: 10-14-2020 10-14-2020 Episodic Results Test Name Value Interpretation Reference Range Facil ity Vital Signs Date Time Vital Sign Value Performing Clinician Facility 04-19-2023 11:02-0400 Body height 162.6 cm [facility] Work Phone: [facility] 04-19-2023 11:02-0400 Body mass index (BMI) [Ratio] 55.1 kg/m2 [facility] Work Phone: [facility] 04-19-2023 11:02-040 Body weight 145.6 kg [facility] Work Phone: [facility] 04-19-2023 11:02-0400 Diastolic blood pressure 80 mm[Hg] [facility] Work Phone: 7(879)[phone] [place] [address] 04-19-2023 11:02-0400 Heart rate 64 /min Santo Castillo DO Work Phone: 7(477)683-526125 [place] [address] 04-19-2023 11:02-0400 Systolic blood pressure 126 mm[Hg] Santo Castillo DO Work Phone: 4(863)150-300352 [place] [address] 12-14-2022 08:15-0400 Body height 162.6 cm Santo Castillo DO Work Phone: [phone] [place] [address] 12-14-2022 08:15-0400 Body mass index (BMI) [Ratio] 55.34 kg/m2 Santo Castillo DO Work Phone: [phone] [place] [address] 12-14-2022 08:15-0400 Body weight 146.24 kg Santo Castillo DO Work Phone: 4(698)246-135352 [place] [address] 12-14-2022 08:15-0400 Diastolic blood pressure 80 mm[Hg] Santo Castillo DO Work Phone: [phone])[phone] [place] [address] 12-14-2022 08:15-0400 Heart rate 68 /min Santo Castillo DO Work Phone: [phone])[phone] [place] [address] 12-14-2022 08:15-0400 Systolic blood pressure 124 mm[Hg] Santo Castillo DO Work Phone: 6(806)[phone] [place] [address] 08-23-2022 10:04-0500 Body mass index (BMI) [Ratio] 53.9 kg/m2 Yuriyrichard Valadezoff RD Work Phone: [facility] 08-23-2022 10:04-0500 Body weight 142.[address] Work Phone: [facility] 08-21-2022 05:00-0500 Diastolic blood pressure 78 mm[Hg] No Pcp Required [facility] 08-21-2022 05:00-0500 Heart rate 85 /min No Pcp Required [facility] 08-21-2022 05:00-0500 Respiratory rate 18 /min No Pcp Required [facility] 08-21-2022 05:00-0500 SaO2% (BldA) [Mass fraction] 94 % No Pcp Required [facility] 08-21-2022 05:00-0500 Systolic blood pressure 118 mm[Hg] No Pcp Required [facility] 08-21-2022 02:34-0500 Body height 162.5 cm No Pcp Required [facility] 08-21-2022 02:34-0500 Body temperature 98.24 [degF] No Pcp Required [facility] 08-21-2022 02:34-0500 Body weight 142.7 kg No Pcp Required [facility] 08-16-2022 10:09-0500 Body height 162.56 cm Santo A Castillo Work Phone: [facility] 205 DO Work Phone: 08-16-2022 10:09-0500 Body mass index (BMI) [Ratio] 53.92 kg/m2 Santo A Castillo Work Phone: [facility] 205 DO Work Phone: 08-16-2022 10:09-0500 Body surface area Derived from formula 2.37 m2 Santo A Castillo Work Phone: [facility] 205 DO Work Phone: 08-16-2022 10:09-0500 Body weight 142.49 kg Santo A Castillo Work Phone: [facility] 205 DO Work Phone: 08-16-2022 10:09-0500 Diastolic blood pressure 86 mm[Hg] Santo A Castillo Work Phone: [facility] 205 DO Work Phone: 08-16-2022 10:09-0500 Heart rate 76 /min Santo A Castillo Work Phone: [facility] 205 DO Work Phone: 08-16-2022 10:09-0500 Systolic blood pressure 126 mm[Hg] Santo A Castillo Work Phone: [facility] 205 DO Work Phone: 07-16-2022 10:01-0500 Body mass index (BMI) [Ratio] 55.1 kg/m2 Yuriy Boroff RD Work Phone: [facility] 07-16-2022 10:01-0500 Body weight 145.[address] Work Phone: [facility] 06-25-2022 10:35-0500 Body mass index (BMI) [Ratio] 55.1 kg/m2 Yuriy Boroff RD Work Phone: [facility] 06-25-2022 10:35-0500 Body weight 145.[address] Work Phone: [facility] 05-21-2022 14:14-0400 Body mass index (BMI) [Ratio] 55.2 kg/m2 Yuriy Boroff RD Work Phone: [facility] 05-21-2022 14:14-0400 Body weight 145.[address] Work Phone: [facility] 05-17-2022 16:17-0400 Body height 162.56 cm Santo A Castillo Work Phone: [facility] 205 DO Work Phone: 05-17-2022 16:17-0400 Body mass index (BMI) [Ratio] 55.14 kg/m2 Santo A Castillo Work Phone: [facility] 205 DO Work Phone: 05-17-2022 16:17-0400 Body surface area Derived from formula 2.39 m2 Santo A Castillo Work Phone: [facility] 205 DO Work Phone: 05-17-2022 16:17-0400 Body weight 145.72 kg Santo A Castillo Work Phone: [facility] 205 DO Work Phone: 05-17-2022 16:17-0400 Diastolic blood pressure 80 mm[Hg] Santo A Castillo Work Phone: [facility] 205 DO Work Phone: 05-17-2022 16:17-0400 Heart rate 76 /min Santo A Castillo Work Phone: [facility] 205 DO Work Phone: 05-17-2022 16:17-0400 Systolic blood pressure 132 mm[Hg] Santo A Castillo Work Phone: [facility] 205 DO Work Phone: 05-12-2022 14:08-0400 Diastolic blood pressure 73 mm[Hg] Iván Antnuez MD Work Phone: [facility] 05-12-2022 14:08-0400 Heart rate 71 /min Iván Antunez MD Work Phone: [employer] 05-12-2022 14:08-0400 Respiratory rate 16 /min Iván Antunez MD Work Phone: [facility] 05-12-2022 14:08-0400 SaO2% (BldA) [Mass fraction] 99 % Iván Antunez MD Work Phone: [employer] 05-12-2022 14:08-0400 Systolic blood pressure 131 mm[Hg] Iván Antunez MD Work Phone: [facility] 05-12-2022 10:26-0400 Body height 162.6 cm Iván Antunez MD Work Phone: [facility] 05-12-2022 10:26-0400 Body mass index (BMI) [Ratio] 54.93 kg/m2 Iván Antunez MD Work Phone: [facility] 05-12-2022 10:26-0400 Body weight 145.15 kg Iván Antunez MD Work Phone: [facility] 05-12-2022 10:25-0400 Body temperature 98.2 [degF] Iván Antunez MD Work Phone: [facility] 05-06-2022 14:06-0400 Body mass index (BMI) [Ratio] 54.98 kg/m2 Yuriy You RD Work Phone: [facility] 05-06-2022 14:06-0400 Body weight 145.[address] Work Phone: [facility] 05-05-2022 09:56-0400 Body height 162.56 cm Santo A Castillo Work Phone: [facility] 205 DO Work Phone: 05-05-2022 09:56-0400 Body mass index (BMI) [Ratio] 53.73 kg/m2 Santo Estefanía Dumase Work Phone: [facility] 205 DO Work Phone: 05-05-2022 09:56-0400 Body surface area Derived from formula 2.37 m2 Santo A Castillo Work Phone: [facility] 205 DO Work Phone: 05-05-2022 09:56-0400 Body weight 141.98 kg Santo A Castillo Work Phone: [facility] 205 DO Work Phone: 05-05-2022 09:56-0400 Diastolic blood pressure 82 mm[Hg] Santo A Castillo Work Phone: [facility] 205 DO Work Phone: 05-05-2022 09:56-0400 Systolic blood pressure 124 mm[Hg] Santo A Castillo Work Phone: [facility] 205 DO Work Phone: 05-04-2022 09:07-0400 Body height 162.6 cm Santo Castillo DO Work Phone: [facility] 05-04-2022 09:06-0400 Body temperature 97.39 [degF] Santo Castillo DO Work Phone: [facility] 05-04-2022 09:06-0400 Diastolic blood pressure 87 mm[Hg] Santo Castillo DO Work Phone: [facility] 05-04-2022 09:06-0400 Heart rate 73 /min Santo Castillo DO Work Phone: [facility] 05-04-2022 09:06-0400 Respiratory rate 16 /min Santo Castillo DO Work Phone: [facility] 05-04-2022 09:06-0400 SaO2% (BldA) [Mass fraction] 98 % Santo Castillo DO Work Phone: [facility] 05-04-2022 09:06-0400 Systolic blood pressure 133 mm[Hg] Santo Castillo DO Work Phone: [facility] 03-24-2022 14:11-0400 Body temperature 97.9 [degF] Santo Castillo DO Work Phone: [employer] 03-24-2022 14:11-0400 Diastolic blood pressure 72 mm[Hg] Santo Castillo DO Work Phone: [employer] 03-24-2022 14:11-0400 Heart rate 87 /min Santo Castillo DO Work Phone: [employer] 03-24-2022 14:11-0400 Respiratory rate 18 /min Santo Castillo DO Work Phone: [employer] 03-24-2022 14:11-0400 SaO2% (BldA) [Mass fraction] 96 % Santo Castillo DO Work Phone: [employer] 03-24-2022 14:11-0400 Systolic blood pressure 145 mm[Hg] Santo Castillo DO Work Phone: [employer] 03-10-2022 11:40-0400 Body mass index (BMI) [Ratio] 53.55 kg/m2 Yuriy You RD Work Phone: [employer] 03-10-2022 11:40-0400 Body weight 141.52 kg Yuriy Kenyatta KANG Work Phone: [employer] 03-09-2022 03:50-0400 Diastolic blood pressure 79 mm[Hg] No Pcp Required [facility] 03-09-2022 03:50-0400 Heart rate 88 /min No Pcp Required [facility] 03-09-2022 03:50-0400 Respiratory rate 16 /min No Pcp Required [facility] 03-09-2022 03:50-0400 SaO2% (BldA) [Mass fraction] 96 % No Pcp Required [facility] 03-09-2022 03:50-0400 Systolic blood pressure 120 mm[Hg] No Pcp Required [facility] 03-09-2022 02:46-0400 Body height 162.5 cm No Pcp Required [facility] 03-09-2022 02:46-0400 Body temperature 97.34 [degF] No Pcp Required [facility] 03-09-2022 02:46-0400 Body weight 145 kg No Pcp Required [facility] 03-03-2022 10:10-0400 Body height 162.6 cm Mahad Dent DO Work Phone: [facility] 03-03-2022 10:10-0400 Body mass index (BMI) [Ratio] 54.13 kg/m2 Mahad Dent DO Work Phone: [facility] 03-03-2022 10:10-0400 Body temperature 97.11 [degF] Mahad Dent DO [facility] 03-03-2022 10:10-0400 Body weight 143.05 kg Mahad Dent DO Work Phone: [facility] 03-03-2022 10:10-0400 Diastolic blood pressure 58 mm[Hg] Mahad Dent DO Work Phone: [employer] [facility] 03-03-2022 10:10-0400 Heart rate 73 /min Mahad Dent DO Work Phone: [employer] 03-03-2022 10:10-0400 SaO2% (BldA) [Mass fraction] 99 % Mahad Dent DO Work Phone: [employer] [facility] 03-03-2022 10:10-0400 Systolic blood pressure 117 mm[Hg] Mahad Dent DO Work Phone: [facility] 02-24-2022 12:13-0400 Body mass index (BMI) [Ratio] 54.07 kg/m2 Yuriy You RD Work Phone: [facility] 02-24-2022 12:13-0400 Body weight 142.[address] Work Phone: [facility] 02-19-2022 14:20-0400 Body height 162.56 cm Santo Castillo Work Phone: [facility] 205 DO Work Phone: 02-19-2022 14:20-0400 Body mass index (BMI) [Ratio] 53.75 kg/m2 Santo A Castillo Work Phone: [facility] 205 DO Work Phone: 02-19-2022 14:20-0400 Body surface area Derived from formula 2.37 m2 Santo A Castillo Work Phone: [facility] 205 DO Work Phone: 02-19-2022 14:20-0400 Body weight 142.03 kg Santo A Castillo Work Phone: [facility] 205 DO Work Phone: 02-19-2022 14:20-0400 Diastolic blood pressure 80 mm[Hg] Santo A Castillo Work Phone: [facility] 205 DO Work Phone: 02-19-2022 14:20-0400 Heart rate 76 /min Santo A Castillo Work Phone: [facility] 205 DO Work Phone: 02-19-2022 14:20-0400 Systolic blood pressure 118 mm[Hg] Santo A Castillo Work Phone: [facility] 205 DO Work Phone: 02-15-2022 10:40-0400 Body height 162.56 cm Santo A Castillo Work Phone: [facility] 205 DO Work Phone: 02-15-2022 10:40-0400 Body mass index (BMI) [Ratio] 54.16 kg/m2 Santo A Castillo Work Phone: [facility] 205 DO Work Phone: 02-15-2022 10:40-0400 Body surface area Derived from formula 2.37 m2 Santo A Castillo Work Phone: [facility] 205 DO Work Phone: 02-15-2022 10:40-0400 Body weight 143.11 kg Santo A Castillo Work Phone: [facility] 205 DO Work Phone: 02-15-2022 10:40-0400 Diastolic blood pressure 76 mm[Hg] Santo A Castillo Work Phone: [facility] 205 DO Work Phone: 02-15-2022 10:40-0400 Heart rate 74 /min Santo A Castillo Work Phone: [facility] 205 DO Work Phone: 02-15-2022 10:40-0400 Systolic blood pressure 124 mm[Hg] Santo A Castillo Work Phone: [facility] 205 DO Work Phone: 02-10-2022 15:42-0400 Body height 162.6 cm Santo Castillo DO Work Phone: [facility] 02-10-2022 15:42-0400 Body mass index (BMI) [Ratio] 54.93 kg/m2 Santo Castillo DO Work Phone: [facility] 02-10-2022 15:42-0400 Body weight 145.15 kg Santo Castillo DO Work Phone: [facility] 02-10-2022 15:41-0400 Body temperature 98.1 [degF] Santo Castillo DO Work Phone: [facility] [employer] [facility] 02-10-2022 15:41-0400 Diastolic blood pressure 71 mm[Hg] Santo Castillo DO Work Phone: [facility] [employer] [facility] 02-10-2022 15:41-0400 Heart rate 72 /min Santo Castillo DO Work Phone: [facility] [employer] [facility] 02-10-2022 15:41-0400 Respiratory rate 20 /min Santo Castillo DO Work Phone: [facility] [employer] [facility] 02-10-2022 15:41-0400 SaO2% (BldA) [Mass fraction] 96 % Santo Castillo DO Work Phone: [facility] 02-10-2022 15:41-0400 Systolic blood pressure 134 mm[Hg] Santo Castillo DO Work Phone: [facility] [employer] [facility] 02-09-2022 09:49-0400 Diastolic blood pressure 78 mm[Hg] Apolinar Elizondo MD Work Phone: 0(226)771-473324 [place] [address] 02-09-2022 09:49-0400 Heart rate 80 /min Apolinar Elizondo MD Work Phone: 4(312)380-520424 [place] [address] 02-09-2022 09:49-0400 Respiratory rate 18 /min Apolinar Elizondo MD Work Phone: 2(252)286-625824 [place] [address] 02-09-2022 09:49-0400 SaO2% (BldA) [Mass fraction] 98 % Apolinar Elizondo MD Work Phone: 6(827)841-885024 [place] [address] 02-09-2022 09:49-0400 Systolic blood pressure 141 mm[Hg] Apolinar Elizondo MD Work Phone: 5(994)835-124924 [place] [address] 02-09-2022 08:33-0400 Body temperature 98.1 [degF] Apolinar Elizondo MD Work Phone: 7(479)322-735624 [place] [address] 01-01-2022 11:16-0400 Body mass index (BMI) [Ratio] 53.73 kg/m2 [facility] 01-01-2022 11:16-0400 Body weight 141.98 kg [facility] 12-31-2021 14:47-0400 Body height 162.6 cm Candace Vanessa TELECOMMUNICATIONS PROJECT MANAGER-HANDBAG FRAMES INSPECTOR Work Phone: [facility] 12-31-2021 14:47-0400 Body mass index (BMI) [Ratio] 54.1 kg/m2 Candace Vanessa TELECOMMUNICATIONS PROJECT MANAGER-HANDBAG FRAMES INSPECTOR Work Phone: [facility] 12-31-2021 14:47-0400 Body weight 142.97 kg Candace Vanessa TELECOMMUNICATIONS PROJECT MANAGER-HANDBAG FRAMES INSPECTOR Work Phone: [facility] 12-31-2021 14:47-0400 Diastolic blood pressure 82 mm[Hg] Candace Vanessa TELECOMMUNICATIONS PROJECT MANAGER-HANDBAG FRAMES INSPECTOR Work Phone: [facility] 12-31-2021 14:47-0400 Heart rate 78 /min Candace Vanessa TELECOMMUNICATIONS PROJECT MANAGER-HANDBAG FRAMES INSPECTOR Work Phone: [facility] 12-31-2021 14:47-0400 Respiratory rate 18 /min Candace Vanessa TELECOMMUNICATIONS PROJECT MANAGER-HANDBAG FRAMES INSPECTOR Work Phone: [facility] 12-31-2021 14:47-0400 SaO2% (BldA) [Mass fraction] 99 % Candace Vanessa TELECOMMUNICATIONS PROJECT MANAGER-HANDBAG FRAMES INSPECTOR Work Phone: [facility] 12-31-2021 14:47-0400 Systolic blood pressure 130 mm[Hg] Candace Vanessa TELECOMMUNICATIONS PROJECT MANAGER-HANDBAG FRAMES INSPECTOR Work Phone: [facility] 12-15-2021 13:06-0400 Body height 162.56 cm Santo A Castillo Work Phone: [facility] 205 DO Work Phone: 12-15-2021 13:06-0400 Body mass index (BMI) [Ratio] 53.92 kg/m2 Santo A Castillo Work Phone: [facility] 205 DO Work Phone: 12-15-2021 13:06-0400 Body surface area Derived from formula 2.37 m2 Santo A Castillo Work Phone: [facility] 205 DO Work Phone: 12-15-2021 13:06-0400 Body weight 142.49 kg Santo A Castillo Work Phone: [facility] 205 DO Work Phone: 12-15-2021 13:06-0400 Diastolic blood pressure 82 mm[Hg] Santo A Castillo Work Phone: [facility] 205 DO Work Phone: 12-15-2021 13:06-0400 Heart rate 68 /min Santo A Castillo Work Phone: [facility] 205 DO Work Phone: 12-15-2021 13:06-0400 Systolic blood pressure 126 mm[Hg] Santo A Castillo Work Phone: [facility] 205 DO Work Phone: 12-09-2021 11:03-0400 Body height 162.56 cm Santo A Castillo Work Phone: [facility] 205 DO Work Phone: 12-09-2021 11:03-0400 Body mass index (BMI) [Ratio] 54.82 kg/m2 Santo A Castillo Work Phone: [facility] 205 DO Work Phone: 12-09-2021 11:03-0400 Body surface area Derived from formula 2.39 m2 Santo A Castillo Work Phone: [facility] 205 DO Work Phone: 12-09-2021 11:03-0400 Body weight 144.87 kg Santo A Castillo Work Phone: [facility] 205 DO Work Phone: 12-09-2021 11:03-0400 Diastolic blood pressure 82 mm[Hg] Santo A Castillo Work Phone: [facility] 205 DO Work Phone: 12-09-2021 11:03-0400 Heart rate 71 /min Santo A Castillo Work Phone: [facility] 205 DO Work Phone: 12-09-2021 11:03-0400 SaO2% (BldA) [Mass fraction] 97 % Santo A Castillo Work Phone: [facility] 205 DO Work Phone: 12-09-2021 11:03-0400 Systolic blood pressure 124 mm[Hg] Santo A Castillo Work Phone: [facility] 205 DO Work Phone: 12-03-2021 11:22-0400 Body height 162.6 cm Rosa Coe HANDBAG FRAMES INSPECTOR Work Phone: [facility] 12-03-2021 11:22-0400 Body mass index (BMI) [Ratio] 54.96 kg/m2 Rosa Coe HANDBAG FRAMES INSPECTOR Work Phone: [facility] 12-03-2021 11:22-0400 Body temperature 97.7 [degF] Rosa Coe HANDBAG FRAMES INSPECTOR Work Phone: [facility] 12-03-2021 11:22-0400 Body weight 145.24 kg Rosa Coe HANDBAG FRAMES INSPECTOR Work Phone: [facility] 12-03-2021 11:22-0400 Diastolic blood pressure 77 mm[Hg] Rosa Coe HANDBAG FRAMES INSPECTOR Work Phone: [facility] 12-03-2021 11:22-0400 Heart rate 72 /min Rosa Coe HANDBAG FRAMES INSPECTOR Work Phone: [facility] 12-03-2021 11:22-0400 SaO2% (BldA) [Mass fraction] 97 % Rosa Coe HANDBAG FRAMES INSPECTOR Work Phone: [facility] 12-03-2021 11:22-0400 Systolic blood pressure 122 mm[Hg] Rosa Coe HANDBAG FRAMES INSPECTOR Work Phone: [facility] 11-16-2021 11:15-0400 Body height 162.56 cm Santo Estefanía Dumase Work Phone: [facility] 205 DO Work Phone: 11-16-2021 11:15-0400 Body mass index (BMI) [Ratio] 54.61 kg/m2 Santo Estefanía Castillo Work Phone: [facility] 205 DO Work Phone: 11-16-2021 11:15-0400 Body surface area Derived from formula 2.38 m2 Santo Estefanía Castillo Work Phone: [facility] 205 DO Work Phone: 11-16-2021 11:15-0400 Body weight 144.3 kg Santo A Castillo Work Phone: [facility] 205 DO Work Phone: 11-16-2021 11:15-0400 Diastolic blood pressure 78 mm[Hg] Santo A Castillo Work Phone: [facility] 205 DO Work Phone: 11-16-2021 11:15-0400 Heart rate 76 /min Santo A Castillo Work Phone: [facility] 205 DO Work Phone: 11-16-2021 11:15-0400 Systolic blood pressure 126 mm[Hg] Santo A Castillo Work Phone: [facility] 205 DO Work Phone: 10-14-2021 11:14-0500 Body height 162.56 cm Santo A Castillo Work Phone: [facility] 205 DO Work Phone: 10-14-2021 11:14-0500 Body mass index (BMI) [Ratio] 54.93 kg/m2 Santo A Castillo Work Phone: [facility] 205 DO Work Phone: 10-14-2021 11:14-0500 Body surface area Derived from formula 2.39 m2 Santo A Castillo Work Phone: [facility] 205 DO Work Phone: 10-14-2021 11:14-0500 Body weight 145.15 kg Santo A Castillo Work Phone: [facility] 205 DO Work Phone: 10-14-2021 11:14-0500 Diastolic blood pressure 78 mm[Hg] Santo A Castillo Work Phone: [facility] 205 DO Work Phone: 10-14-2021 11:14-0500 Heart rate 84 /min Santo A Castillo Work Phone: [facility] 205 DO Work Phone: 10-14-2021 11:14-0500 SaO2% (BldA) [Mass fraction] 95 % Santo A Castillo Work Phone: [facility] 205 DO Work Phone: 10-14-2021 11:14-0500 Systolic blood pressure 124 mm[Hg] Santo A Castillo Work Phone: [facility] 205 DO Work Phone: 08-17-2021 14:54-0500 Body height 162.56 cm Santo A Castillo Work Phone: [facility] 205 DO Work Phone: 08-17-2021 14:54-0500 Body mass index (BMI) [Ratio] 54.46 kg/m2 Santo A Castillo Work Phone: [facility] 205 DO Work Phone: 08-17-2021 14:54-0500 Body surface area Derived from formula 2.38 m2 Santo A Castillo Work Phone: [facility] 205 DO Work Phone: 08-17-2021 14:54-0500 Body temperature 97.5 [degF] Santo A Castillo Work Phone: [facility] 205 DO Work Phone: 08-17-2021 14:54-0500 Body weight 143.9 kg Santo A Castillo Work Phone: [facility] 205 DO Work Phone: 08-17-2021 14:54-0500 Diastolic blood pressure 80 mm[Hg] Santo A Castillo Work Phone: [facility] 205 DO Work Phone: 08-17-2021 14:54-0500 Heart rate 64 /min Santo A Castillo Work Phone: [facility] 205 DO Work Phone: 08-17-2021 14:54-0500 Systolic blood pressure 128 mm[Hg] Santo A Castillo Work Phone: [facility] 205 DO Work Phone: 05-20-2021 13:12-0400 Body height 182.88 cm Santo A Castillo Work Phone: [facility] 205 DO Work Phone: 05-20-2021 13:12-0400 Body height 162.56 cm Santo A Castillo Work Phone: [facility] 205 DO Work Phone: 05-20-2021 13:12-0400 Body mass index (BMI) [Ratio] 42.59 kg/m2 Santo A Castillo Work Phone: [facility] 205 DO Work Phone: 05-20-2021 13:12-0400 Body mass index (BMI) [Ratio] 53.9 kg/m2 Santo A Castillo Work Phone: [facility] 205 DO Work Phone: 05-20-2021 13:12-0400 Body surface area Derived from formula 2.58 m2 Santo A Castillo Work Phone: [facility] 205 DO Work Phone: 05-20-2021 13:12-0400 Body surface area Derived from formula 2.37 m2 Santo Estefanía Castillo Work Phone: [facility] 205 DO Work Phone: 05-20-2021 13:12-0400 Body temperature 96.8 [degF] Santo A Castillo Work Phone: [facility] 205 DO Work Phone: 05-20-2021 13:12-0400 Body weight 142.43 kg Santo A Castillo Work Phone: [facility] 205 DO Work Phone: 05-20-2021 13:12-0400 Diastolic blood pressure 80 mm[Hg] Santo A Castillo Work Phone: [facility] 205 DO Work Phone: 05-20-2021 13:12-0400 Heart rate 63 /min Santo A Castillo Work Phone: [facility] 205 DO Work Phone: 05-20-2021 13:12-0400 Systolic blood pressure 120 mm[Hg] Santo A Castillo Work Phone: [facility] 205 DO Work Phone: 05-05-2021 19:13-0400 Diastolic blood pressure 81 mm[Hg] No Pcp Required [facility] 05-05-2021 19:13-0400 Heart rate 91 /min No Pcp Required [facility] 05-05-2021 19:13-0400 Respiratory rate 18 /min No Pcp Required [facility] 05-05-2021 19:13-0400 SaO2% (BldA) [Mass fraction] 97 % No Pcp Required [facility] 05-05-2021 19:13-0400 Systolic blood pressure 141 mm[Hg] No Pcp Required [facility] 05-05-2021 [id number] Body height 162.5 cm No Pcp Required [facility] 05-05-2021 16:26-0400 Body temperature 98.6 [degF] No Pcp Required [facility] 05-05-2021 [id number]:[id number] Body weight 145 kg No Pcp Required [facility] 02-16-2021 14:25-0400 Body height 152.4 cm Santo A Castillo Work Phone: [facility] 205 DO Work Phone: 02-16-2021 14:25-0400 Body mass index (BMI) [Ratio] 60.54 kg/m2 Santo A Castillo Work Phone: [facility] 205 DO Work Phone: 02-16-2021 14:25-0400 Body surface area Derived from formula 2.25 m2 Santo A Castillo Work Phone: [facility] 205 DO Work Phone: 02-16-2021 14:25-0400 Body temperature 96.4 [degF] Santo A Castillo Work Phone: [facility] 205 DO Work Phone: 02-16-2021 14:25-0400 Body weight 140.62 kg Santo A Castillo Work Phone: [facility] 205 DO Work Phone: 02-16-2021 14:25-0400 Diastolic blood pressure 84 mm[Hg] Santo A Castillo Work Phone: [facility] 205 DO Work Phone: 02-16-2021 14:25-0400 Heart rate 83 /min Santo A Castillo Work Phone: [facility] 205 DO Work Phone: 02-16-2021 14:25-0400 Systolic blood pressure 134 mm[Hg] Santo A Castillo Work Phone: [facility] 205 DO Work Phone: 06-04-2019 12:55-0400 BP Diastolic 65 mm[Hg] [facility] 06-04-2019 12:55-0400 BP Systolic 127 mm[Hg] [facility] 06-04-2019 12:55-0400 Pulse (Heart Rate) 61 /min [facility] 06-04-2019 12:55-0400 Pulse Oximetry 97 % [facility] 06-04-2019 12:55-0400 Respiratory Rate 16 /min [facility] 06-04-2019 10:01-0400 BMI (Body Mass Index) 39.48 kg/m2 [facility] 06-04-2019 10:01-0400 Body Temperature 98.2 [degF] [facility] 06-04-2019 10:01-0400 Body weight 104.33 kg [facility] 06-04-2019 10:-0400 Height 162.6 cm [facility] 04-30-2019 10:24-0400 BP Diastolic 62 mm[Hg] [facility] 04-30-2019 10:24-0400 BP Systolic 112 mm[Hg] [facility] 04-30-2019 10:24-0400 Pulse (Heart Rate) 65 /min [facility] 04-30-2019 10:24-0400 Pulse Oximetry 95 % [facility] 04-30-2019 10:24-0400 Respiratory Rate 18 /min [facility] 04-30-2019 09:18-0400 Height 165.1 cm [facility] 04-30-2019 09:13-0400 Body Temperature 97.5 [degF] [facility] 04-25-2019 18:48-0400 BP Diastolic 84 mm[Hg] [facility] 04-25-2019 18:48-0400 BP Systolic 146 mm[Hg] [facility] 04-25-2019 18:48-0400 Pulse (Heart Rate) 98 /min [facility] 04-25-2019 18:48-0400 Pulse Oximetry 99 % [facility] 04-25-2019 18:48-0400 Respiratory Rate 16 /min [facility] 04-25-2019 17:59-0400 BMI (Body Mass Index) 39.48 kg/m2 [facility] 04-25-2019 17:59-0400 Body weight 104.33 kg [facility] 04-25-2019 17:59-0400 Height 162.6 cm [facility] 04-25-2019 17:57-0400 Body Temperature 98.4 [degF] [facility] 01-29-2019 10:30-0400 BMI (Body Mass Index) 49.42 kg/m2 [facility] 01-29-2019 10:30-0400 Body Temperature 97.7 [degF] [facility] 01-29-2019 10:30-0400 Height 167.6 cm [facility] 01-29-2019 10:30-0400 Weight 138.89 kg [facility] 01-17-2019 09:50-0400 BMI (Body Mass Index) 49.7 kg/m2 [facility] 01-17-2019 09:50-0400 Body Temperature 98.1 [degF] [facility] 01-17-2019 09:50-0400 Height 167.6 cm [facility] 01-17-2019 09:50-0400 Weight 139.66 kg [facility] 07-03-2018 08:29-0500 Height 162.6 cm [facility] Work Phone: 07-03-2018 08:27-0500 Body Temperature 96.91 [degF] [facility] Work Phone: 07-03-2018 08:27-0500 BP Diastolic 65 mm[Hg] [facility] Work Phone: 07-03-2018 08:27-0500 BP Systolic 136 mm[Hg] [facility] Work Phone: 07-03-2018 08:27-0500 Pulse (Heart Rate) 74 /min [facility] Work Phone: 07-03-2018 08:27-0500 Pulse Oximetry 98 % [facility] Work Phone: 07-03-2018 08:27-0500 Respiratory Rate 18 /min [facility] Work Phone: Encounters Encounter Date Encounter Type Care Provider Facility Start: 08-12-2023 End: 08-12-2023 Emergency department patient visit SANTO HALE [facility] Start: 07-02-2023 End: 07-02-2023 Emergency department patient visit DEBBIE PEGUERO [facility] Start: 04-19-2023 End: 04-19-2023 ambulatory [facility] Start: 04-19-2023 End: 04-19-2023 Office outpatient visit 25 minutes Santo Castillo DO Work Phone: [facility] Procedures Date Procedure Procedure Detail Performing Clinician Start: 04-21-2023 End: 04-21-2023 Screening digital breast tomosynthesis bi Santo aCstillo DO Work Phone: Start: 04-19-2023 POCT UA AUTOMATED MANUALLY RESULTED SANTO CASTILLO Start: 04-19-2023 FOLLOW UP IN FAMILY MEDICINE SANTO CASTILLO Start: 04-19-2023 Urnls dip stick/tabl et rgnt auto w/o microscopy Santo Castillo DO Work Phone: Start: 01-26-2023 CBC W Auto Different ial panel - Blood SANTO CASTILLO Start: 01-26-2023 Comprehensive metabo lic 2000 panel - Serum or Plasma SANTO CASTILLO Start: 01-26-2023 Hemoglobin A1c/Hemoglobin.total in Blood SANTO CASTILLO Start: 01-26-2023 Lipid panel SANTO H IRA Start: 01-26-2023 TSH WITH REFLEX TO F REE T4 IF ABNORMAL SANTO CASTILLO Start: 01-26-2023 Lipid 1996 panel - S dieudonne or Plasma Santo Castillo DO Work Phone: Start: 12-14-2022 POCT UA AUTOMATED MANUALLY RESULTED SANTO CASTILLO Start: 12-14-2022 Urinalysis microscop ic panel - Urine Qualitative by Automated Santo Castillo DO Work Phone: Start: 12-14-2022 Urnls dip stick/tabl et reagent auto microscopy Santo Castillo DO Work Phone: Start: 12-14-2022 Urnls dip stick/tabl et rgnt auto w/o microscopy Santo Castillo DO Work Phone: Start: 08-21-2022 End: 08-21-2022 EKG impression Shauna W Nicolaus Start: 07-16-2022 Lipid 1996 panel - S dieudonne or Plasma Santo Castillo DO Work Phone: Start: 05-12-2022 Ct abdomen & pelvis w/o contrast material Iván Antunez MD Work Phone: Start: 05-12-2022 Urinalysis microscop ic only Iván Antunez MD Work Phone: Start: 05-12-2022 Urinalysis, reagent strip without microscopy Iván Antunez MD Work Phone: Start: 05-12-2022 Complete blood count with white cell differential, automated Iván Antunez MD Work Phone: Start: 05-12-2022 Comprehensive metabo lic panel Iván Antunez MD Work Phone: Start: 04-05-2022 Follow-up visit Follow-up [facility] Start: 03-24-2022 End: 03-24-2022 Radiologic examination tibia & fibula 2 views Santo Adi Tinocoh TELECOMMUNICATIONS PROJECT MANAGER-HANDBAG FRAMES INSPECTOR Work Phone: Start: 02-09-2022 Radex ankle complete minimum 3 views Apolinar Elizondo MD Work Phone: Start: 12-11-2021 End: 12-11-2021 Psychiatric diagnostic evaluation Binge-eating disorder, mild Chin Bah PsyD Work Phone: Plan of Treatment Date Care Activity Detail Author Start: 01-06-2030 Screening for malign ant neoplasm of colon [facility] Start: 01-27-2028 Lipid panel Lipid Panel [facility] Start: 2027 Zoster Vaccines (1 o f 2) Zoster Vaccines (1 of 2) [facility] Start: 07-16-2027 Lipid panel Lipid Panel [facility] Start: 12-09-2026 Fasting lipid profile LIPID SCREENIN [facility] Start: 12-09-2026 [facility] Start: 01-26-2026 Diabetes mellitus screening Diabetes Screening [facility] Start: 03-03-2025 Diabetes mellitus screening Diabetes Screening [facility] Start: 01-06-2025 Colonoscopy COLONOSCOPY [facility] Start: 01-06-2025 COLORECTAL CANCER SCREENING COLORECTAL CANCER SCREENING [facility] Start: 04-21-2024 Screening for malign ant neoplasm of breast Mammogram [facility] Start: 01-27-2024 Hemoglobin A1c measurement Diabetes: Hemoglobin A1C [facility] Start: 07-19-2023 End: 07-19-2023 Patient encounter procedure 07/19/2023 11:20 AM EST Office Visit [facility] [address] [place] [address] Santo Castillo DO [address] [place] [address] [facility] Start: 04-19-2023 End: 04-19-2024 Urinalysis complete panel - Urine [facility] Area Work Phone: Immunizations Immunization Date Immunization Notes Care Provider Fa cility 06-28-2018 influenza virus vacc ine, unspecified formulation Rosa Coe HANDBAG FRAMES INSPECTOR Work Phone: [facility] Payers Date Payer Category Payer [facility] [id number] 2021 Unknown [id number] 2021 Private Health Insurance [employer]ATH[employer] PAT[employer] OAP [id number] 2021-Present [phone] [address] [place] [address] Open Access [id number] 2018 Medicaid [id number]. [id number] 2018 Medicaid [id number] 2018 Medicaid [facility] MEDICAID [employer] [id number] 2018-Present [phone] [address] [place] [address] [id number]. [id number] 2018 Unknown 2018 Unknown [id number] 2018 Unknown [id number]. [id number] 2018 Self-pay 1977 Unknown [id number] 2.16.840.1.020959.3.579.2. 717 1977 Unknown [id number] 2.16.840.1.630081.3.579.2. 717 1977 Unknown [id number] 2.16.840.1.656980.3.579.2. 900 1977 Unknown [id number] 2.16.840.1.177743.3.579.2. 900 1977 Unknown [id number] 2.16.840.1.511821.3.579.2. 983 1977 Unknown [id number] 2.16.840.1.699891.3.579.2. 983 1977 Unknown [id number] 2.16.840.1.423528.3.579.2. 983 1977 Unknown [id number] 2.16.840.1.579086.3.579.2. 983 1977 Unknown [id number] 2.16.840.1.996538.3.579.2. 983 1977 Unknown [id number] 2.16.840.1.090171.3.579.2. 983 1977 Unknown [id number] 2.16.840.1.488084.3.579.2. 983 1977 Unknown [id number] 2.16.840.1.270953.3.579.2. 983 1977 Unknown [id number] 2.16.840.1.386514.3.579.2. 983 1977 Unknown [id number] 2.16.840.1.051710.3.579.2. 983 1977 Unknown [id number] 2.16.840.1.184239.3.579.2. 983 1977 Unknown [id number] 2.16.840.1.013078.3.579.2. 983 1977 Unknown [id number] 2.16.840.1.651778.3.579.2. 983 1977 Unknown [id number] 2.16.840.1.479764.3.579.2. 983 1977 Unknown [id number] 2.16.840.1.848060.3.579.2. 983 1977 Unknown [id number] 2.16.840.1.251357.3.579.2. 983 1977 Unknown [id number] 2.16.840.1.579626.3.579.2. 983 1977 Unknown [id number] 2.16.840.1.915218.3.579.2. 1069 1977 Unknown [id number] 2.16.840.1.376435.3.579.2. 9 1977 Unknown [id number] 2.16.840.1.995750.3.579.2. 9 1977 Unknown [id number] 2.16.840.1.694364.3.579.2. 9 1977 Unknown [id number] 2.16.840.1.529748.3.579.2. 9 1977 Unknown [id number] 2.16.840.1.903956.3.579.2. 1245 1977 Unknown [id number] 2.16.840.1.523471.3.579.2. 356 1977 Unknown [id number] 2.16.840.1.642710.3.579.2. 356 1977 Unknown [id number] 2.16.840.1.775922.3.579.2. 356 1977 Unknown [id number] 2.16.840.1.453520.3.579.2. 356 1977 Unknown [id number] 2.16.840.1.962011.3.579.2. 356 1977 Unknown [id number] 2.16.840.1.308359.3.579.2. 356 1977 Unknown [id number] 2.16.840.1.175052.3.579.2. 356 1977 Unknown [id number] 2.16.840.1.108238.3.579.2. 356 1977 Unknown [id number] 1975 Unknown [id number] 1244 1975 Unknown [id number] 1244 1975 Unknown [id number]. 903 1975 Unknown [id number]. 902 1975 Unknown [id number]. 902 1975 Unknown [id number]. 902 1975 Unknown [id number]. 902 1975 Unknown [id number]. 902 Social History Date Type Detail Facility Start: 07-03-2018 End: 12-14-2022 Tobacco smoking status NHIS Never smoker [facility] Work Phone: Start: 1975 Sex Assigned At Not on file [facility] Work Phone: Start: 04-25-2019 End: 04-19-2023 Alcohol intake No [facility] Start: 09-01-2020 End: 04-19-2023 Never smoker Never smoker 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 Start: 01-30-2022 End: 12-14-2022 Exposure to SARS-CoV-2 (event) Not sure [facility] Start: 06-15-2022 Alcohol intake Lifetime non-d jonathon (finding) [facility] Start: 05-18-2021 Alcohol Comment rare [facility] Medical Equipment Procedure Code Equipment Code Equipment Origin al Text Equipment Identifier Dates [id number] Implant - [id number] Start: 06-09-2011 Clinical Notes 03-10-2012 to 04-24-2023 Assessment & Plan Note - Santo Castillo DO - 04/24/2023 6:27 AM EDTAssessment & Plan Note - Santo Castillo DO - 04/24/2023 6:27 AM EDTMrory Castillo DO - 04/19/2023 11:00 AM EDT Note Date & Type Note Facility 04-24-2023 Evaluation + Plan note Associated Problem(s): Anxiety Improved. Will continue to monitor. [facility] Work Phone: 04-24-2023 Evaluation + Plan note Associated Problem(s): Hematuria Low concern for kidney stone given lack of CVA ttp and severe pain. UA in office with blood - will send for micro and will follow up with results. [facility] Work Phone: 04-24-2023 Miscellaneous Notes Associated Problem(s): Anxiety Improved. Will continue to monitor. Associated Problem(s): Hematuria Low concern for kidney stone given lack of CVA ttp and severe pain. UA in office with blood - will send for micro and will follow up with results. Associated Problem(s): Plantar wart R pinky toe. Reviewed tx options - recommendation discussed. Pt will try otc tx and let us know if no better. Associated Problem(s): Fibromyalgia Pain interfering with work. Will check on rheumatology referral. documented in this encounter [facility] Work Phone: 04-24-2023 Evaluation + Plan note Associated Problem(s): Plantar wart R pinky toe. Reviewed tx options - recommendation discussed. Pt will try otc tx and let us know if no better. [facility] Work Phone: 04-24-2023 Evaluation + Plan note Associated Problem(s): Fibromyalgia Pain interfering with work. Will check on rheumatology referral. [facility] Work Phone: 04-19-2023 History of Present illness Narrative Subjective Patient ID: John Dominguez is a 47 y.o. female who presents for follow up. Cluster of bumps under right foot x 6 months. Has started to spread HPI Anx/dep - feeling improved compared to last check, not needing to take the hydroxyzine or Buspar as much, trial date for grandson keeps getting pushed back but hoping for net month Fibromyalgia - has not yet heard from rheumatology to schedule, still interested in specialty eval as she is struggling with daily pain that is interfering with ability to work, Flexeril and ibuprofen together seem to help her get some sleep Toe - noticed spot on tip of R pinky toe as well as bottom of the foot near that toe, does not bother her Hematuria - has continued to noticed intermittent blood in her urine, otherwise denies urinary symptoms, no burning/frequency/urgency, does have mild flank pain which is always present and attributed to fibromyalgia Review of Systems Constitutional: Negative for chills and fever. Respiratory: Negative for cough and shortness of breath. Cardiovascular: Negative for chest pain and palpitations. Musculoskeletal: Positive for arthralgias and myalgias. Skin: Negative for rash. Spot on R pinky toe Psychiatric/Behavioral: Negative for dysphoric mood. The patient is not nervous/anxious. Objective BP 126/80 Pulse 64 Ht 1.626 m (5' 4 ) Wt 146 kg (321 lb) BMI 55.10 kg/m Physical Exam Constitutional: Appearance: Normal appearance. HENT: Head: Normocephalic and atraumatic. Eyes: General: No scleral icterus. Conjunctiva/sclera: Conjunctivae normal. Cardiovascular: Rate and Rhythm: Normal rate and regular rhythm. Heart sounds: No murmur heard. Pulmonary: Effort: Pulmonary effort is normal. No respiratory distress. Breath sounds: Normal breath sounds. Abdominal: Tenderness: There is no right CVA tenderness or left CVA tenderness. Musculoskeletal: General: No swelling. Normal range of motion. Cervical back: Normal range of motion and neck supple. Skin: General: Skin is warm and dry. Findings: No rash. Comments: Wart tip of R pinky toe and base of toe plantar aspect Neurological: General: No focal deficit present. Mental Status: She is alert. Psychiatric: Mood and Affect: Mood normal. Behavior: Behavior normal. Assessment/Plan Problem List Items Addressed This Visit Plantar wart R pinky toe. Reviewed tx options - recommendation discussed. Pt will try otc tx and let us know if no better. Hematuria Low concern for kidney stone given lack of CVA ttp and severe pain. UA in office with blood - will send for micro and will follow up with results. Relevant Orders POCT UA Automated manually resulted (Completed) Urinalysis with Reflex Microscopic Fibromyalgia Pain interfering with work. Will check on rheumatology referral. Relevant Orders Follow Up In Primary Care - Established Anxiety Improved. Will continue to monitor. Relevant Orders Follow Up In Primary Care - Established Other Visit Diagnoses Encounter for screening mammogram for breast cancer - Primary Relevant Orders BI mammo bilateral screening tomosynthesis (Completed) Follow Up In Primary Care - Established Encounter for screening for malignant neoplasm of colon Relevant Orders Referral to Gastroenterology Follow Up In Primary Care - Established Follow up in 3mo for recheck, sooner if needed. documented in this encounter [facility] Work Phone: 01-12-2023 Note Patient Outreach (IN [facility]) JOHN DOMINGUEZ ([id number]) 1975 F Date Time Provider Department 01/12/23 CHERYL SIMPSON During your visit today, we recorded the following information about you: Allergies As of Date: 01/12/2023 Noted Allergy Reaction IODINE 11/03/2018 4 - Hives 9 - Itching Comments: Pt developed hives and itching on neck, back and shoulder after injection of contrast for CT scan. SULFA (SULFONAMIDE ANTIBIOTICS) 05/17/2005 4 - Hives BEE STING 02/18/2009 7 - Swelling Comments: Throat swells BLACK PEPPER 09/29/2015 7 - Swelling Comments: Seasoning AND spices OMNIPAQUE (IOHEXOL) 11/06/2018 4 - Hives 9 - Itching ORANGE JUICE 02/07/2014 7 - Swelling Date Reviewed: 08/28/2020 Reviewed by: Yvette Noguera LPN - Fully Assessed Visit Diagnosis:Encounter for screening mammogram for breast cancer [Z12.31] Order(s):[facility] SCREENING [[id number]] Order #: [id number] FUTURE Prescriptions as of 01/17/2023 - cyclobenzaprine (FLEXERIL) 10 mg tablet Take 1 tablet by mouth three times daily as needed for Muscle Spasm or Pain. - naproxen (NAPROSYN) 500 mg tablet Take 1 tablet by mouth twice daily as needed for Pain (for pain/inflammation). Take with food. - omeprazole (PRILOSEC) 40 mg capsule Take 1 capsule by mouth once daily. - dicyclomine (BENTYL) 20 mg tablet Take 1 tablet by mouth three times daily. - acetaminophen (TYLENOL) 325 mg cap Take by mouth. - Multivitamins chew Take by mouth. Problem List As Of Date 01/12/2023 Noted Resolved Mild intermittent asthma without complication [*06/16/2006 Irregular menstrual cycle [N92.6] 06/16/2006 11/03/2010 Depression [F32.A] 06/16/2006 Sciatica [M54.30] GENERALIZED ANXIETY DIS [F41.1] PANIC DISORDER WITHOUT AGORAPHOBIA [F41.0] 09/06/2007 Migraine without aura [G43.009] 10/13/2007 Scanty or infrequent menstruation [N91.5] 09/13/2008 04/12/2012 Other and unspecified hyperlipidemia [E78.5] 10/15/2008 PCOS (polycystic ovarian syndrome) [E28.2] 11/19/2010 Ovarian cystic mass [N83.209] 12/28/2010 01/05/2012 Hallux valgus (acquired) [M20.10] 04/21/2011 Calcaneal spur [M77.30] 04/26/2011 Fibromyalgia [M79.7] 05/19/2011 Rheumatoid arthritis (HCC) [M06.9] 05/19/2011 Abnormality of gait [R26.9] 06/08/2011 01/10/2014 Edema [R60.9] 09/08/2011 Multinodular goiter [E04.2] 11/11/2011 RLQ abdominal pain [R10.31] 01/05/2012 04/12/2012 Dyspareunia [JSI5604] 03/10/2012 04/12/2012 Insomnia [G47.00] 01/10/2014 GERD (gastroesophageal reflux disease) [K21.9] BMI 45.0-49.9, adult (HCC) [Z68.42] 01/11/2014 Elevated WBCs [D72.829] 01/22/2014 Hypermetropia - Both Eyes [H52.00] 04/01/2014 Regular astigmatism - Both Eyes [H52.229] 04/01/2014 Presbyopia - Both Eyes [H52.4] 04/01/2014 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 Flexeril refill provided. [facility] Work Phone: 12-14-2022 Miscellaneous Notes Associated Problem(s): Fibromyalgia Exacerbated. Flexeril refill provided. Associated Problem(s): Hematuria Presented to ED 12/09/2022 with R flank pain - workup significant for hematuria, otherwise unrevealing. Feeling significantly improved. UA in office again with blood today - will send for micro and follow up with results. Associated Problem(s): Thyroid nodule Missed ENT appt. Encouraged her to reschedule. Associated Problem(s): Anxiety Exacerbated. Reviewed tx options. Using shared decision making, we decided restart Buspar as this helped in the past. Medication dosing and side effects reviewed. Follow up in 4mo for recheck, sooner if needed. documented in this encounter [facility] Work Phone: 12-14-2022 Evaluation + Plan note Associated Problem(s): Hematuria Presented to ED 12/09/2022 with R flank pain - workup significant for hematuria, otherwise unrevealing. Feeling significantly improved. UA in office again with blood today - will send for micro and follow up with results. [facility] Work Phone: 12-14-2022 Evaluation + Plan note Associated Problem(s): Thyroid nodule Missed ENT appt. Encouraged her to reschedule. [facility] Work Phone: 12-14-2022 Evaluation + Plan note Associated Problem(s): Anxiety Exacerbated. Reviewed tx options. Using shared decision making, we decided restart Buspar as this helped in the past. Medication dosing and side effects reviewed. Follow up in 4mo for recheck, sooner if needed. [facility] Work Phone: 12-14-2022 History of Present illness Narrative [facility]. Lower back pain and nausea. They think kidney stones because of blood in urine and pain Subjective Patient ID: John Dominguez is a 47 y.o. female who presents for Back Pain and ER Follow-up. HPI Regarding thyroid nodule, missed appt with ENT. Plans to reschedule. Regarding flank pain, went to [facility] ED 12/09/2022 with R flank pain. Workup (including CT abd/pelv wo contrast) largely unrevealing aside from hematuria. Patient thinks she passed a kidney stone. Overall feeling better - still having occasional pain in the R flank which is much improved compares to pain that took her to the ED. Denies gross hematuria, fever, chills, abd pain, dysuria. Regarding fibromyalgia/anxiety, states that both have been flared significantly since her grandson's injuries in 05/2022. Lorida worse than she has in a long time yesterday - had hard time getting out of bed despite Tylenol, naproxen, muscle relaxers, edible. Does feel a little better this morning. Having a hard time working due to flares and missing days as well as having difficulty standing for long periods of time. This is causing financial stress. Hasn't taken her hydroxyzine as it doesn't help much. Unable to tolerate Zoloft in the past due to SI. Buspar seemed to help. Regarding HLD, stopped taking her statin due to LE myalgias. Review of Systems Constitutional: Negative for chills and fever. Respiratory: Negative for cough and shortness of breath. Cardiovascular: Negative for chest pain and palpitations. Musculoskeletal: Positive for arthralgias and myalgias. Skin: Negative for rash. Psychiatric/Behavioral: Positive for dysphoric mood. The patient is nervous/anxious. Objective BP 124/80 Pulse 68 Ht 1.626 m (5' 4 ) Wt 146 kg (322 lb 6.4 oz) BMI 55.34 kg/m Physical Exam Constitutional: Appearance: Normal appearance. HENT: Head: Normocephalic and atraumatic. Cardiovascular: Rate and Rhythm: Normal rate and regular rhythm. Pulmonary: Effort: Pulmonary effort is normal. No respiratory distress. Breath sounds: Normal breath sounds. Abdominal: Tenderness: There is no right CVA tenderness or left CVA tenderness. Musculoskeletal: Cervical back: Neck supple. Skin: General: Skin is warm and dry. Neurological: General: No focal deficit present. Mental Status: She is alert. Psychiatric: Mood and Affect: Mood normal. Behavior: Behavior normal. Assessment/Plan Problem List Items Addressed This Visit Thyroid nodule Missed ENT appt. Encouraged her to reschedule. Hematuria Presented to ED 12/09/2022 with R flank pain - workup significant for hematuria, otherwise unrevealing. Feeling significantly improved. UA in office again with blood today - will send for micro and follow up with results. Relevant Orders POCT UA Automated manually resulted (Completed) Urinalysis with Reflex Microscopic (Completed) Urinalysis Microscopic Only (Completed) Fibromyalgia - Primary Exacerbated. Flexeril refill provided. Relevant Medications cyclobenzaprine (Flexeril) 10 mg tablet Other Relevant Orders Follow Up In Primary Care Anxiety Exacerbated. Reviewed tx options. Using shared decision making, we decided restart Buspar as this helped in the past. Medication dosing and side effects reviewed. Follow up in 4mo for recheck, sooner if needed. Relevant Medications busPIRone (Buspar) 5 mg tablet Other Relevant Orders Follow Up In Primary Care documented in this encounter [facility] Work Phone: 08-31-2022 History of Present illness Narrative Patient presents today to discuss thyroid results. Had thyroid ultrasound performed 07/19/2023 due to globus sensation which revealed multinodular thyroid gland including moderately suspicious hypoechoic solid nodule in anterior L lobe measuring 15mm. FNA performed 08/31/2022. Cytology revealed follicular lesions of undetermined significance - was also sent for molecular testing. TSH is wnl. She does have appt with ENT scheduled for 10/14/2022 for initial eval. Is overall feeling well but concerned and worried. States that globus sensation is largely unchanged.Of note, is also interested in [facility] with [facility] for [facility] care. [facility] 205 DO Work Phone: 08-23-2022 History of Present illness Narrative OUTPATIENT BARIATRIC NUTRITION EDUCATION: [facility] #9 Referring Provider: Self, Self Nutrition Assessment Anthropometrics: Ht Readings from Last 1 Encounters: 05/12/22 1.626 m (5' 4 ) Wt Readings from Last 5 Encounters: 08/23/22 (!) 142.4 kg (314 lb) 07/16/22 (!) 145.6 kg (321 lb) 06/25/22 (!) 145.6 kg (321 lb) 05/21/22 (!) 145.9 kg (321 lb 9.6 oz) 05/12/22 (!) 145.2 kg (320 lb) Easley body weight: 54.7 kg (120 lb 9.5 oz) Adjusted ideal body weight: 89.8 kg (197 lb 15.3 oz) Body mass index is 53.9 kg/m . Ms. John Dominguez is a 46 y.o. female here in preparation for weight loss surgery. Today we met for [facility] #9 phone call. Pt stated that she has been struggling with a lot going on recently with her health and would like to push her final appointemnt until October and this was communicated with other people in the program. She is compliant with all the nutritional goals at this time except she is not exercising. She reports starting a new job and once she is acclimated to the new hours she plans on adding physical activity into her week. Pt was also consuming 3 premier protein shakes a day. Due to patient already consuming adequate protein through food sources pt was encouraged to decrease the shakes to one per day at this time. Pt understands the importance of supplementation after surgery and encouraged of food sources of protein first if tolerated. Pt will meet with dietitian in one month and prepare her for her final nutritional appointment. Class type: Phone call 1:1 Diet Recall: Meal What Time Breakfast 2 Eggs and 2 pieces of wheat toast 7 am Snack A pack of peanut butter crackers 10 am Lunch Leftover 1/2 of a rack of ribs and 1/2 cup of dieced potatoes 1 pm Snack 2 Hard boiled eggs 2 30 pm Dinner 3-4 oz of beef roast with potatoes carrots and onions 7 pm Snack 3 hard boiled eggs 9 pm Fluids 70 oz water , 3 premier protein shakes a day. NA Current exercise: Pt is not exercising. Nutrition Goals: 1. Eat breakfast, lunch, dinner, and 2-3 snacks (5-6 small meals/day): MET 2. Consume adequate protein: MET 3. Limit sugar to no more than 10 grams per meal/snack: MET 4. Consume 64 oz of hydrating fluids/day: MET 5. Eliminate carbonation, straws, caffeine, and alcohol: MET 6. Eating off smaller plates and bowls: MET 7. Chew your food 20-30 times per bite when needed: MET 8. Meals should last 20-30 minutes: MET 9. Separate drinking and eating by 30 minutes: MET 10. Eat in this order: protein first, vegetables and fruits second, and whole grains last: MET 11. Put your utensil or handheld food down in between bites: MET 12. Begin physical activity including cardio and strength training: Not MET Nutrition Diagnosis NB-1.1 Food and nutrition related knowledge deficit related to post-bariatric surgery diet and how to successfully lose and keep weight off as it relates to bariatric surgery as evidenced by pt new to bariatric program. Nutrition Intervention Nutrition Goals: 1. Eat 5-6 small meals/snacks per day (breakfast, lunch, dinner, and 2-3 snacks) 2. Consume adequate protein daily 3. Limit all sugar + sugar alcohols to no more than 10 grams per meal/snack 4. Drink 64+ oz of hydrating fluid/day 5. Eliminate carbonation, straws, caffeine, and alcohol 6. Eat off smaller plates and bowls 7. Take dime sized bites and chew food 20-30x per bite, or until it is a consistent texture 8. Meals need to last at least 20-30 minutes. Stop eating once you feel full 9. Separate food and fluids by 30 minutes. Do not drink with meals 10. Eat protein first, vegetables and fruits second, and whole grains last 11. Begin physical activity as tolerated. Goal of 150-300 minutes of moderate physical activity per week with 2+ days of strength or resistance training included Monitoring & Evaluation 1. Pt will complete all nutrition classes prior to final nutrition appointment 2. Progress towards nutrition goals and weight is tracked at each nutrition class or follow up appointment 3. All nutrition goals will be met prior to final nutrition appointment in order to receive dietitian clearance to have bariatric surgery Time spent with pt: 16 minutes PEARL Estrella Registered Dietitian, Licensed Dietitian 08/23/22 documented in this encounter [facility] 07-16-2022 History of Present illness Narrative OUTPATIENT BARIATRIC NUTRITION EDUCATION: LESSON 4 Referring Provider: Self, Self Nutrition Assessment Anthropometrics: Ht Readings from Last 1 Encounters: 05/12/22 1.626 m (5' 4 ) Wt Readings from Last 5 Encounters: 07/16/22 (!) 145.6 kg (321 lb) 06/25/22 (!) 145.6 kg (321 lb) 05/21/22 (!) 145.9 kg (321 lb 9.6 oz) 05/12/22 (!) 145.2 kg (320 lb) 05/06/22 (!) 145.3 kg (320 lb 4.8 oz) Easley body weight: 54.7 kg (120 lb 9.5 oz) Adjusted ideal body weight: 91.1 kg (200 lb 12.1 oz) Body mass index is 55.1 kg/m . Ms. John Dominguez is a 46 y.o. female here in preparation for weight loss surgery. Today was [facility] #8 phone call appointment. Pt had a incident occur last month and did not feel she was mentally ready to complete her final nutrition appointment. Since her last appointment she has made some dietary changes such as increasing meal frequency and increasing physical activity, but is still not meeting all the nutritional goals. Today I gave her some advice and guidance on what she needs to work on in order to be meeting all of the nutritional goals and we discussed content she did not feel confident in from the 4 courses. The game plan is for patient to have one more [facility] appointment in August and 1 appointment in September. Class type: Phone call 1:1 Diet Recall: Meal What Time Breakfast 2 eggs with 1 piece of wheat toast 7 am Snack Peanut butter with ritz crackers 9 am Lunch Small valles from [employer] and whopper sandwich with a Rootbeer 1 pm Snack Dinner 2 chicken thighs 8 pm Snack Gold fish and ritz crackers 10 pm Fluids (4) 33 oz bottles of water and 1 root beer with her lunch NA Current exercise: Pt is exercising 3 days/week for 30 minutes. (walk around [facility]) Nutrition Goals: 1. Eat breakfast, lunch, dinner, and 2-3 snacks (5-6 small meals/day): MET 2. Consume adequate protein: Not MET 3. Limit sugar to no more than 10 grams per meal/snack: Not MET 4. Consume 64 oz of hydrating fluids/day: MET 5. Eliminate carbonation, straws, caffeine, and alcohol: Not MET 6. Eating off smaller plates and bowls: MET 7. Chew your food 20-30 times per bite when needed: MET 8. Meals should last 20-30 minutes: MET 9. Separate drinking and eating by 30 minutes: MET 10. Eat in this order: protein first, vegetables and fruits second, and whole grains last: MET 11. Put your utensil or handheld food down in between bites: MET 12. Begin physical activity including cardio and strength training: MET Nutrition Diagnosis NB-1.1 Food and nutrition related knowledge deficit related to post-bariatric surgery diet and how to successfully lose and keep weight off as it relates to bariatric surgery as evidenced by pt new to bariatric program. Nutrition Intervention Nutrition Goals: 1. Eat 5-6 small meals/snacks per day (breakfast, lunch, dinner, and 2-3 snacks) 2. Consume adequate protein daily 3. Limit all sugar + sugar alcohols to no more than 10 grams per meal/snack 4. Drink 64+ oz of hydrating fluid/day 5. Eliminate carbonation, straws, caffeine, and alcohol 6. Eat off smaller plates and bowls 7. Take dime sized bites and chew food 20-30x per bite, or until it is a consistent texture 8. Meals need to last at least 20-30 minutes. Stop eating once you feel full 9. Separate food and fluids by 30 minutes. Do not drink with meals 10. Eat protein first, vegetables and fruits second, and whole grains last 11. Begin physical activity as tolerated. Goal of 150-300 minutes of moderate physical activity per week with 2+ days of strength or resistance training included Monitoring & Evaluation 1. Pt will complete all nutrition classes prior to final nutrition appointment 2. Progress towards nutrition goals and weight is tracked at each nutrition class or follow up appointment 3. All nutrition goals will be met prior to final nutrition appointment in order to receive dietitian clearance to have bariatric surgery Time spent with pt: 22 minutes PEARL Estrella Registered Dietitian, Licensed Dietitian 07/16/22 documented in this encounter [facility] 07-15-2022 History of Present illness Narrative Patient presents today via telephone visit with chief complaint of congestion. States that this episode started yesterday with nasal congestion, sinus pressure, PND, bl ear fullness. Denies CP, SOB, MELGOZA, LH, dizziness, abd pain, n/v/d, fever, chills, sore throat, ear pain, rhinorrhea, cough. Has tried drinking more water, using humidifier, and nasal saline drops without much improvement in her symptoms. Denies sick contacts. [facility] 205 DO Work Phone: 06-25-2022 History of Present illness Narrative OUTPATIENT BARIATRIC NUTRITION EDUCATION: [facility] #7 Referring Provider: Self, Self Nutrition Assessment Anthropometrics: Ht Readings from Last 1 Encounters: 05/12/22 1.626 m (5' 4 ) Wt Readings from Last 5 Encounters: 06/25/22 (!) 145.6 kg (321 lb) 05/21/22 (!) 145.9 kg (321 lb 9.6 oz) 05/12/22 (!) 145.2 kg (320 lb) 05/06/22 (!) 145.3 kg (320 lb 4.8 oz) 03/10/22 (!) 141.5 kg (312 lb) [place] body weight: 54.7 kg (120 lb 9.5 oz) Adjusted ideal body weight: 91.1 kg (200 lb 12.1 oz) Body mass index is 55.1 kg/m . Ms. John Dominguez is a 46 y.o. female here in preparation for weight loss surgery. Patient requested to do SWL phone calls for the next two months and postpone her final due to a family emergency. Pt has been struggling focusing on following the nutritional goals during these stressful times. Pt was given encouragement during today's phone call appointment. Pt and I created a game plan for her to work on the nutritional goals over the next month and be meeting all of them by her next appointment. Pt and I will discuss content she needs to study at her next appointment and will then have her final nutrition appointment in August. Pt had no questions at the end of today appointment, and I encouraged her to reach out if she was struggling with any of the nutritional goals. Class type: In-person 1:1 Diet Recall: Meal What Time Breakfast Snack Lunch 4 Barbeque ribs and cheese pasta 1 pm Snack Dinner Bowl of elbow noodles with 3 oz hamburger spaghetti sauce 7 pm Snack Fluids 12 oz sweet tea, 60 oz water NA Current exercise: Pt is not exercising. Nutrition Goals: 1. Eat breakfast, lunch, dinner, and 2-3 snacks (5-6 small meals/day): Not MET 2. Consume adequate protein: Not MET 3. Limit sugar to no more than 10 grams per meal/snack: Not MET 4. Consume 64 oz of hydrating fluids/day: Not MET 5. Eliminate carbonation, straws, caffeine, and alcohol: Not MET 6. Eating off smaller plates and bowls: MET 7. Chew your food 20-30 times per bite when needed: MET 8. Meals should last 20-30 minutes: MET 9. Separate drinking and eating by 30 minutes: MET 10. Eat in this order: protein first, vegetables and fruits second, and whole grains last: MET 11. Put your utensil or handheld food down in between bites: MET 12. Begin physical activity including cardio and strength training: Not MET Nutrition Diagnosis NB-1.1 Food and nutrition related knowledge deficit related to post-bariatric surgery diet and how to successfully lose and keep weight off as it relates to bariatric surgery as evidenced by pt new to bariatric program. Nutrition Intervention Nutrition Goals: 1. Eat 5-6 small meals/snacks per day (breakfast, lunch, dinner, and 2-3 snacks) 2. Consume adequate protein daily 3. Limit all sugar + sugar alcohols to no more than 10 grams per meal/snack 4. Drink 64+ oz of hydrating fluid/day 5. Eliminate carbonation, straws, caffeine, and alcohol 6. Eat off smaller plates and bowls 7. Take dime sized bites and chew food 20-30x per bite, or until it is a consistent texture 8. Meals need to last at least 20-30 minutes. Stop eating once you feel full 9. Separate food and fluids by 30 minutes. Do not drink with meals 10. Eat protein first, vegetables and fruits second, and whole grains last 11. Begin physical activity as tolerated. Goal of 150-300 minutes of moderate physical activity per week with 2+ days of strength or resistance training included Monitoring & Evaluation 1. Pt will complete all nutrition classes prior to final nutrition appointment 2. Progress towards nutrition goals and weight is tracked at each nutrition class or follow up appointment 3. All nutrition goals will be met prior to final nutrition appointment in order to receive dietitian clearance to have bariatric surgery Time spent with pt: 13 minutes PEARL Estrella Registered Dietitian, Licensed Dietitian 06/25/22 documented in this encounter [facility] 05-21-2022 History of Present illness Narrative OUTPATIENT BARIATRIC NUTRITION: [facility] #6 Referring Provider: Rosa Coe CNP Pt came in today very nervous about final exam and did not have her homework 100% complete with questions so today we answered these questions and gave her advice and materials to prepare for her next final appointment. Nutrition Assessment Anthropometrics: Ht Readings from Last 1 Encounters: 05/12/22 1.626 m (5' 4 ) Wt Readings from Last 10 Encounters: 05/21/22 (!) 145.9 kg (321 lb 9.6 oz) 05/12/22 (!) 145.2 kg (320 lb) 05/06/22 (!) 145.3 kg (320 lb 4.8 oz) 03/10/22 (!) 141.5 kg (312 lb) 03/03/22 (!) 143.1 kg (315 lb 6 oz) 02/24/22 (!) 142.9 kg (315 lb) 02/10/22 (!) 145.2 kg (320 lb) 01/13/22 (!) 142.9 kg (315 lb) 01/01/22 (!) 142 kg (313 lb) 12/31/21 (!) 143 kg (315 lb 3.2 oz) [place] body weight: 54.7 kg (120 lb 9.5 oz) Adjusted ideal body weight: 91.2 kg (200 lb 15.9 oz) Body mass index is 55.2 kg/m . Diet Recall: Meal What Time Breakfast Apple juice(Discussed this as an issues) , 2 eggs, and toast 7 am Snack 2 hard boiled eggs 10 am Lunch [place] and hammond wrap with wolof dressing 12 pm Snack Peanut butter crackers 4 pm Dinner Breakfast casserole with ground pork, eggs, and cheese (Pt stated she has been measuring her foods and this was about 4 oz) 7 pm Snack 2 hard boiled eggs 8 30 pm Fluids About a gallon of water per day, 8 oz lactose free milk, NA Current exercise: Pt is exercising 3 days/week for 30 minutes. (walk around [facility]) Ms. John Dominguez is a 46 y.o. female here in preparation for weight loss surgery, LSG. This is visit #6. Pt has completed bariatric nutrition education classes 1-4. Today's visit is to evaluate pt's readiness for surgery from a nutrition standpoint, to individualize an 800 calorie meal plan and answer any nutrition related questions the pt may have. Pt lost her nutritional materials in order to study for the final and complete her homework. Pt was given the resources and also we went over how to fill this out correctly and gave her advice when studying for the final exam. Pt is doing great with the nutritional goals we just discussed how patient should not be drinking sugary sweetened beverages and juice after the surgery. Pt feels much more confident going into her final appointment. Nutrition Goals: 1. Eat breakfast, lunch, dinner, and 2-3 snacks (5-6 small meals/day): MET 2. Consume adequate protein: MET 3. Limit sugar & sugar alcohols to no more than 10 grams per meal/snack: Not MET (Pt did not recognize the amount of sugar in apple juice) 4. Consume 64 oz of hydrating fluids/day: MET 5. Eliminate carbonation, straws, caffeine, and alcohol: MET 6. Eating off smaller plates and bowls: MET 7. Chew your food 20-30 times per bite when needed or until consistent texture: MET 8. Meals should last 20-30 minutes: MET 9. Separate drinking and eating by 30 minutes: MET 10. Eat in this order: protein first, vegetables and fruits second, and whole grains last: MET 11. Put your utensil or handheld food down in between bites: MET 12. Begin physical activity including cardio and strength training: MET PMH: has a past medical history of Anxiety, Asthma, Dental disease, Depression, Diabetes mellitus, Exercise tolerance finding, Fibromyalgia, GERD (gastroesophageal reflux disease), History of corticosteroid therapy, Hyperlipidemia, IBS (irritable bowel syndrome), Migraine, Morbid obesity, No advance directives, Rheumatoid arthritis, Skin cancer (01/2018), and Wears glasses. PSH: has a past surgical history that includes hysterectomy; foot surgery; complete extraction of teeth; tubal ligation; and transfer/rearrangement adjacent tissue cheek chin forehead mouth neck (Right, 02/07/2018). Nutrition-Related Labs: Lab Results Component Value Date GLUCOSE 95 05/12/2022 GLUCOSE 99 12/09/2021 GLUCOSE 102 (H) 06/04/2019 HGBA1C 6.0 (H) 12/09/2021 SODIUM 135 (L) 05/12/2022 POTASSIUM 3.6 05/12/2022 CALCIUM 9.1 05/12/2022 ALBUMIN 3.6 05/12/2022 BUN 6 (L) 05/12/2022 CREATSERUM 0.74 05/12/2022 HGB 13.9 05/12/2022 HCT 42.1 05/12/2022 IRON 80 12/09/2021 B12 291 12/09/2021 [id number] 13.7 (L) 12/09/2021 FOLATE 16.3 12/09/2021 BP Readings from Last 3 Encounters: 05/12/22 131/73 05/04/22 133/87 03/24/22 145/72 Nutrition Diagnosis NB-1.1 Food and nutrition-related knowledge deficit related to pre-bariatric sx diet as evidenced by scheduled for bariatric sx. Nutrition Intervention Nutrition Goals: 1. Eat 5-6 small meals/snacks per day (breakfast, lunch, dinner, and 2-3 snacks) 2. Consume adequate protein daily 3. Limit all sugar + sugar alcohols to no more than 10 grams per meal/snack 4. Drink 64+ oz of hydrating fluid/day 5. Eliminate carbonation, straws, caffeine, and alcohol 6. Eat off smaller plates and bowls 7. Take dime sized bites and chew food 20-30x per bite, or until it is a consistent texture 8. Meals need to last at least 20-30 minutes. Stop eating once you feel full 9. Separate food and fluids by 30 minutes. Do not drink with meals 10. Eat protein first, vegetables and fruits second, and whole grains last 11. Begin physical activity as tolerated. Goal of 150-300 minutes of moderate physical activity per week with 2+ days of strength or resistance training included Monitoring & Evaluation NOT CLEARED 1. Second final nutrition appointment will be scheduled 2. Provided patient with list of goals that were not being met. Pt verbalized understanding that at next nutrition appointment that all nutrition goals must be met, a score of 80% or higher is required on paper test, and pt must be able to verbalize all nutrition education and goals. Time spent with pt: 24 minutes PEARL Estrella Registered Dietitian, Licensed Dietitian 05/21/22 documented in this encounter [facility] 05-12-2022 Emergency department Note Discharge instructions reviewed with patient. Patient educated on where to [facility] prescription medications and follow up. Patient verbalized understanding. No further questions at this time. Patient ambulated out of ER with steady gait. [facility] 05-12-2022 Emergency department Note Discharge instructions reviewed with patient. Patient educated on where to [facility] prescription medications and follow up. Patient verbalized understanding. No further questions at this time. Patient ambulated out of ER with steady gait. Patient transported to [place] at this time Emergency Room Note [facility] Service Date:.05/12/22 PCP: Santo Castillo Chief Complaint: Chief Complaint Patient presents with Abdominal Pain Pt states abd discomfort that she also feels wraps around to her back on both sides; pt states she felt like she had to have a bm this morning went to the restroom and when she stood up noticed blood clots and blood in the toilet HPI John Dominguez is a 46 y.o. female presents to the ED today due to abdominal discomfort and blood per rectum. Patient states she has crampy lower abdominal pain since this morning. States she has had some blood per rectum today. She tells me that she has a history of blood per rectum off and on for 7 years. States she has had multiple colonoscopies and workup for this and they have never found an etiology. However, this is the 1st time that she has had lower abdominal pain with it. She describes lower abdominal pain as an aching pain which is mild in intensity slightly exacerbated with movement. It is all the way across the lower abdomen but it seems to be worse on the left side compared to the right She has no lightheadedness. She denies any weakness. She has not complained any trauma. She denies rash. She denies history of abnormal bruising. Patient states she has also noticed some blood in her urine recently. States she has seen her primary care provider at [facility] and this is being worked up. She has not complained any dysuria. Review of Systems: Review of Systems She has no recent fever chills. She is not complaining cough, sore throat, or other upper respiratory complaints. She has no recent nausea or vomiting. She denies diarrhea. She has had blood per rectum off and on in the past as mentioned above. No new food intolerance. No other recent GI complaints. She did notice some blood in urine off and on recently as mentioned above. She has not complained any dysuria. She denies any flank pain. She has no recent unexplained weight loss. States she is considering getting gastric sleeve procedure done in the near future. Vessel I did go through remainder of review of systems with patient to include 10 systems and was negative unless mentioned above in history of present illness. She has no lightheadedness. She denies vertigo. She has had no syncope. She has no recent chest pain or shortness of breath. No increasing dyspnea on exertion Past Medical History: Past Medical History: Diagnosis Date Anxiety Asthma Dental disease UPPER PLATE AND BROKEN AND MISSING ON LOWER Depression Diabetes mellitus Exercise tolerance finding METS > 4 Fibromyalgia GERD (gastroesophageal reflux disease) History of corticosteroid therapy > 2 YEARS Hyperlipidemia IBS (irritable bowel syndrome) Migraine Morbid obesity No advance directives Rheumatoid arthritis Skin cancer 01/2018 BCC - right cheek Wears glasses Past Surgical History: Past Surgical History: Procedure Laterality Date TRANSFER/REARRANGEMENT ADJACENT TISSUE CHEEK CHIN FOREHEAD MOUTH NECK Right 02/07/2018 Laterality: Right; Surgeon: Geoffrey Mariee DO; Location: [facility] OR COMPLETE EXTRACTION OF TEETH Upper teeth removed FOOT SURGERY HYSTERECTOMY TUBAL LIGATION Allergies: Allergies Allergen Reactions Bee Venom Anaphylaxis Sulfa Antibiotics Hives Per patient states I had hives and itching everywhere. Contrast Dye [Ivp Dye, Iodine Containing] Welts and throat closes- per patient Hitchcock Fruit [Arthur] Medications: Patient's Medications New Prescriptions ONDANSETRON 4 MG TAB DISPERSIBLE TABLET Take 1 tablet by mouth every 4 hours as needed for Nausea. Place on tongue PANTOPRAZOLE [address] TABLET DR Take 1 tablet by mouth daily. Previous Medications ACETAMINOPHEN 650 MG TAB CR Take 650 mg by mouth as needed. ALBUTEROL 108 (90 BASE) MCG/ACT AERO SOLN INHALER INHALE 1 PUFF BY MOUTH EVERY 4 HOURS NEEDED ATORVASTATIN 20 MG TABLET Take 40 mg by mouth at bedtime. BUPROPION 150 MG TABLET XL Take 150 mg by mouth daily. CETIRIZINE-PSUEDOEPHEDRINE 5-120 MG TAB SR 12 HR TABLET Take 1 tablet by mouth 2 times daily. CHOLECALCIFEROL 1.25 MG ([id number] UT) CAPSULE Take 1 capsule by mouth once a week. CYCLOBENZAPRINE 10 MG TABLET Take 10 mg by mouth at bedtime. FLUTICASONE 50 MCG/ACT SUSPENSION NASAL SPRAY USE 1 SPRAY(S) IN EACH NOSTRIL TWICE DAILY GABAPENTIN 300 MG CAPSULE Take 300 mg by mouth 2 times daily. HYDROXYZINE PAMOATE 25 MG CAPSULE Take 25 mg by mouth 3 times daily. IBUPROFEN 600 MG TABLET Take 1 tablet by mouth every 6 hours as needed for Mild Pain. LIDOCAINE 5 % PATCH PATCH APPLY 1 PATCH TO THE AFFECTED AREA AND LEAVE IN PLACE FOR 12 HOURS, THEN REMOVE AND LEAVE OFF FOR 12 HOURS NAPROXEN 500 MG TABLET Take 1 tablet by mouth 2 times daily with meals for 10 days. OMEPRAZOLE [address] CAPSULE Take 40 mg by mouth daily. PREDNISONE 20 MG TABLET Take 1 tablet by mouth 2 times daily. Modified Medications No medications on file Discontinued Medications No medications on file Family History: Family History Problem Relation Age of Onset Breast Cancer Mother Vision Problems Mother Vision Problems Father Stroke Sister Vision Problems Sister Ovarian Cancer Maternal Grandmother Breast Cancer Maternal Grandmother Prostate Cancer Maternal Grandfather Diabetes Maternal Grandfather Coronary Artery Disease Maternal Grandfather Heart Failure Maternal Grandfather Myocardial Infarction Maternal Grandfather Heart Disease - Other Maternal Grandfather Breast Cancer Paternal Grandmother Stroke Paternal Grandmother Diabetes Paternal Grandfather Social History: Social History Socioeconomic History Marital status: Spouse name: Not on file Number of children: Not on file Years of education: Not on file Highest education level: Not on file Occupational History Not on file Tobacco Use Smoking status: Never Smoker Smokeless tobacco: Never Used Vaping Use Vaping Use: Never used Substance and Sexual Activity Alcohol use: Yes Comment: rarely Drug use: No Sexual activity: Not on file Other Topics Concern Not on file Social History Narrative Not on file Social Determinants of Health Financial Resource Strain: Not on file Food Insecurity: Not on file Transportation Needs: Not on file Physical Activity: Not on file Stress: Not on file Social Connections: Not on file Intimate Partner Violence: Not on file Housing Stability: Not on file Physical Exam: Physical Exam Obese 46 year year old female who is awake and alert. She is speaking in full sentences. Her respiratory rate is 18 on my exam and is nonlabored. Sclera and conjunctiva are clear and moist. No redness or drainage. Mouth has pink moist mucosa. I do not see any abnormalities in the posterior pharynx. She speaks in a normal voice and handle secretions without difficulty. Her neck is supple her trachea is midline. She has good range of motion neck without difficulty or discomfort. Lungs do have good symmetrical breath sounds bilaterally with good air movement. Heart is regular. Abdomen is obese, soft, nondistended. She has some mild diffuse tenderness throughout the lower abdomen. She seems to be mostly tender in the left lower quadrant. There is no guarding, rebound, or percussion tenderness. No palpable mass. Femoral pulses are symmetrical. No obvious hernia. No flank tenderness. No tenderness over the back. She sits up and cooperates with exam and moves around without difficulty or discomfort. Skin is warm and dry. No rash. Capillary refills less than 2 seconds distally. Peripheral pulses are palpable and symmetrical in the upper and lower extremities. She does move all extremities with good muscle tone and strength. Vital Signs During ED Visit Patient Vitals for the past 24 hrs: BP Temp Temp src Pulse Resp SpO2 Height Weight 05/12/22 1408 131/73 -- -- 71 16 99 % -- -- 05/12/22 1323 (!) 153/97 -- -- 65 20 96 % -- -- 05/12/22 1208 144/83 -- -- 75 20 98 % -- -- 05/12/22 1100 148/85 -- -- 75 -- 98 % -- -- 05/12/22 1026 -- -- -- -- -- -- 1.626 m (5' 4 ) (!) 145.2 kg (320 lb) 05/12/22 1025 145/85 98.2 F (36.8 C) Oral 80 20 97 % -- -- Orders/Results: Orders Placed This Encounter CT ABDOMEN/PELVIS WITHOUT CONTRAST COMPREHENSIVE METABOLIC PANEL CBC, EDIF, PLATELET LACTATE, BLOOD Troponin I, High sensitivity ondansetron 4mg/2ml (ZOFRAN) injection 4 mg pantoprazole (PROTONIX) injection 40 mg lactated ringers IV solution 500 mL ondansetron 4 MG Tab Dispersible tablet pantoprazole [address] tablet DR URINALYSIS, MACRO URINE MICROSCOPIC Results for orders placed or performed during the hospital encounter of 05/12/22 COMPREHENSIVE METABOLIC PANEL Result Value Ref Range GLUCOSE 95 70 - 100 MG/DL BUN 6 (L) 7 - 20 MG/DL CREATININE SERUM 0.74 0.52 - 1.04 MG/DL SODIUM 135 (L) 136 - 145 MMOL/L POTASSIUM 3.6 3.5 - 5.1 MMOL/L CHLORIDE 100 98 - 107 MMOL/L CALCIUM 9.1 8.4 - 10.2 MG/DL PROTEIN, TOTAL 7.6 6.3 - 8.2 GM/DL Albumin 3.6 3.5 - 5.0 G/dl BILIRUBIN, TOTAL 0.8 0.2 - 1.2 MG/DL AST 24 15 - 41 IU/L ALKALINE PHOSPHATASE 102 38 - 126 IU/L CARBON DIOXIDE (CO2) 27 22 - 30 MMOL/L A/G Ratio 0.9 (L) 1.3 - 2.2 RATIO ALT 31 14 - 54 IU/L ESTIMATED GFR, NON AMER 91 ml/min/1.73sq.m ESTIMATED GFR, 110 ml/min/1.73sq.m GFR COMMENT Average GFR for 40-49 years old = 99. CBC, EDIF, PLATELET Result Value Ref Range WBC (WHITE BLOOD COUNT) 11.6 (H) 3.6 - 11.0 10*3/uL RBC 5.08 4.0 - 5.4 10*6/uL HEMOGLOBIN (HGB) 13.9 12.0 - 16.0 G/DL HEMATOCRIT (HCT) 42.1 36.0 - 48.0 % MEAN CELL VOLUME 82.9 80.0 - 100.0 FL Mean Cell HGB 27.4 26.0 - 35.0 PG MEAN CELL HGB CONCENTRATION 33.0 27.0 - 37.0 G/DL RBC DISTRIBUTION 14.1 11.5 - 14.5 % PLATELET COUNT 340 130.0 - 400.0 10*3/uL MEAN PLATELET VOLUME 8.2 7.4 - 11.0 FL DIFFERENTIAL TYPE AUTO DIFF % NEUTROPHILS 60.1 37.0 - 75.0 % LYMPHOCYTE 28.3 20.0 - 55.0 % MONOCYTE % 6.5 0.0 - 10.0 % EOSINOPHIL % 4.2 0.0 - 11.0 % BASOPHIL % 0.9 0.0 - 2.0 % Absolute Neutrophil Count 7.0 (H) 1.4 - 6.5 10*3/uL LYMPHOCYTES, ABSOLUTE 3.3 1.2 - 3.4 10*3/uL MONOCYTES, ABSOLUTE 0.8 (H) 0.0 - 0.7 10*3/uL ABSOLUTE EOSINOPHIL COUNT 0.5 0.0 - 0.7 10*3/uL ABSOLUTE BASOPHIL COUNT 0.1 0.0 - 0.2 10*3/uL LACTATE, BLOOD Result Value Ref Range LACTATE 1.2 0.7 - 2.0 mmol/L TROPONIN I, HIGH SENSITIVITY Result Value Ref Range TROPONIN I, HIGH SENSITIVITY 4 0 - 12 pg/mL URINALYSIS, MACRO Result Value Ref Range COLOR, URINE YELLOW YELLOW APPEARANCE, URINE CLEAR CLEAR Specific [place], Urine 1.010 1.010 - 1.025 PH URINE 7.0 5.0 - 7.0 PROTEIN, URINE NEGATIVE NEGATIVE mg/dl GLUCOSE, URINE NEGATIVE NEGATIVE mg/dl KETONES, URINE NEGATIVE NEGATIVE mg/dl BILIRUBIN, URINE NEGATIVE NEGATIVE BLOOD, URINE DIPSTICK SMALL (A) NEGATIVE NITRITES, URINE NEGATIVE NEGATIVE UROBILINOGEN, URINE 0.2 0.2 - 1.0 E.U./dL LEUKOCYTE ESTERASE, URINE NEGATIVE NEGATIVE URINE MICROSCOPIC Result Value Ref Range WBC, URINE NEGATIVE NEGATIVE /HPF RBC, URINE 1 TO 5 NEGATIVE /HPF Epithelial Cells UA 1 TO 5 /HPF Mucus NEGATIVE NEGATIVE BACTERIA, URINE NEGATIVE NEGATIVE CRYSTALS, URINE NONE NONE CASTS, URINE NONE NONE /LPF COMMENT, URINE CULTURE CRITERIA NOT MET, NO CULTURE PERFORMED. Radiographic Imaging CT ABDOMEN/PELVIS WITHOUT CONTRAST Final Result IMPRESSION: No acute abnormality in the abdomen or pelvis. Colonic diverticulosis without evidence of acute diverticulitis. Procedures: Procedures Moderate Sedation Procedure: No ED Summary/MDM Patient's workup in the Emergency department was essentially benign. She is hemodynamically stable and appears very comfortable. She is medically stable for discharge. I will have her follow up the primary care provider at [facility]. She is to call Dr. Castillo today and schedule follow-up as soon as possible. Return if any other questions or concerns. She voiced understanding and agreement with this. She had no further questions. She is discharged in good Clinical Impression: 1. Blood per rectum 2. Lower abdominal pain 3. History of hematuria 4. Hypertension, unspecified type No follow-ups on file. New Prescriptions ONDANSETRON 4 MG TAB DISPERSIBLE TABLET Take 1 tablet by mouth every 4 hours as needed for Nausea. Place on tongue PANTOPRAZOLE [address] TABLET DR Take 1 tablet by mouth daily. Discontinued Medications No medications on file An After Visit Summary was printed and given to the patient with above information. . Iván Antunez MD 05/12/22 1409 documented in this encounter [facility] 05-12-2022 Hospital Discharge instructions Iván Antunez MD - 05/12/2022 2:[address] Méndez office today and schedule follow-up later this week or sometime next week. Make sure they recheck your blood pressure when you are in the office. Return if you develop increased her different pain, fever, or feeling worse in any The following attachments cannot be sent through Care Everywhere.GI Bleeding: Lower (Malaysian)Abdominal Pain (Malaysian)documented in this encounter [facility] 05-12-2022 Emergency department Note [facility] 05-12-2022 Emergency department Note Patient transported to [place] at this time [facility] 05-12-2022 Physician Emergency department Note Emergency Room Note [facility] EMERGENCY DEPARTMENT Service Date:.05/12/22 PCP: Santo Castillo Chief Complaint: Chief Complaint Patient presents with Abdominal Pain Pt states abd discomfort that she also feels wraps around to her back on both sides; pt states she felt like she had to have a bm this morning went to the restroom and when she stood up noticed blood clots and blood in the toilet HPI John Dominguez is a 46 y.o. female presents to the ED today due to abdominal discomfort and blood per rectum. Patient states she has crampy lower abdominal pain since this morning. States she has had some blood per rectum today. She tells me that she has a history of blood per rectum off and on for 7 years. States she has had multiple colonoscopies and workup for this and they have never found an etiology. However, this is the 1st time that she has had lower abdominal pain with it. She describes lower abdominal pain as an aching pain which is mild in intensity slightly exacerbated with movement. It is all the way across the lower abdomen but it seems to be worse on the left side compared to the right She has no lightheadedness. She denies any weakness. She has not complained any trauma. She denies rash. She denies history of abnormal bruising. Patient states she has also noticed some blood in her urine recently. States she has seen her primary care provider at [facility] and this is being worked up. She has not complained any dysuria. Review of Systems: Review of Systems She has no recent fever chills. She is not complaining cough, sore throat, or other upper respiratory complaints. She has no recent nausea or vomiting. She denies diarrhea. She has had blood per rectum off and on in the past as mentioned above. No new food intolerance. No other recent GI complaints. She did notice some blood in urine off and on recently as mentioned above. She has not complained any dysuria. She denies any flank pain. She has no recent unexplained weight loss. States she is considering getting gastric sleeve procedure done in the near future. Vessel I did go through remainder of review of systems with patient to include 10 systems and was negative unless mentioned above in history of present illness. She has no lightheadedness. She denies vertigo. She has had no syncope. She has no recent chest pain or shortness of breath. No increasing dyspnea on exertion Past Medical History: Past Medical History: Diagnosis Date Anxiety Asthma Dental disease UPPER PLATE AND BROKEN AND MISSING ON LOWER Depression Diabetes mellitus Exercise tolerance finding METS > 4 Fibromyalgia GERD (gastroesophageal reflux disease) History of corticosteroid therapy > 2 YEARS Hyperlipidemia IBS (irritable bowel syndrome) Migraine Morbid obesity No advance directives Rheumatoid arthritis Skin cancer 01/2018 BCC - right cheek Wears glasses Past Surgical History: Past Surgical History: Procedure Laterality Date TRANSFER/REARRANGEMENT ADJACENT TISSUE CHEEK CHIN FOREHEAD MOUTH NECK Right 02/07/2018 Laterality: Right; Surgeon: Geoffrey Mariee DO; Location: [facility] OR COMPLETE EXTRACTION OF TEETH Upper teeth removed FOOT SURGERY HYSTERECTOMY TUBAL LIGATION Allergies: Allergies Allergen Reactions Bee Venom Anaphylaxis Sulfa Antibiotics Hives Per patient states I had hives and itching everywhere. Contrast Dye [Ivp Dye, Iodine Containing] Welts and throat closes- per patient Hitchcock Fruit [Arthur] Medications: Patient's Medications New Prescriptions ONDANSETRON 4 MG TAB DISPERSIBLE TABLET Take 1 tablet by mouth every 4 hours as needed for Nausea. Place on tongue PANTOPRAZOLE [address] TABLET DR Take 1 tablet by mouth daily. Previous Medications ACETAMINOPHEN 650 MG TAB CR Take 650 mg by mouth as needed. ALBUTEROL 108 (90 BASE) MCG/ACT AERO SOLN INHALER INHALE 1 PUFF BY MOUTH EVERY 4 HOURS NEEDED ATORVASTATIN 20 MG TABLET Take 40 mg by mouth at bedtime. BUPROPION 150 MG TABLET XL Take 150 mg by mouth daily. CETIRIZINE-PSUEDOEPHEDRINE 5-120 MG TAB SR 12 HR TABLET Take 1 tablet by mouth 2 times daily. CHOLECALCIFEROL 1.25 MG (98343 UT) CAPSULE Take 1 capsule by mouth once a week. CYCLOBENZAPRINE 10 MG TABLET Take 10 mg by mouth at bedtime. FLUTICASONE 50 MCG/ACT SUSPENSION NASAL SPRAY USE 1 SPRAY(S) IN EACH NOSTRIL TWICE DAILY GABAPENTIN 300 MG CAPSULE Take 300 mg by mouth 2 times daily. HYDROXYZINE PAMOATE 25 MG CAPSULE Take 25 mg by mouth 3 times daily. IBUPROFEN 600 MG TABLET Take 1 tablet by mouth every 6 hours as needed for Mild Pain. LIDOCAINE 5 % PATCH PATCH APPLY 1 PATCH TO THE AFFECTED AREA AND LEAVE IN PLACE FOR 12 HOURS, THEN REMOVE AND LEAVE OFF FOR 12 HOURS NAPROXEN 500 MG TABLET Take 1 tablet by mouth 2 times daily with meals for 10 days. OMEPRAZOLE [address] CAPSULE Take 40 mg by mouth daily. PREDNISONE 20 MG TABLET Take 1 tablet by mouth 2 times daily. Modified Medications No medications on file Discontinued Medications No medications on file Family History: Family History Problem Relation Age of Onset Breast Cancer Mother Vision Problems Mother Vision Problems Father Stroke Sister Vision Problems Sister Ovarian Cancer Maternal Grandmother Breast Cancer Maternal Grandmother Prostate Cancer Maternal Grandfather Diabetes Maternal Grandfather Coronary Artery Disease Maternal Grandfather Heart Failure Maternal Grandfather Myocardial Infarction Maternal Grandfather Heart Disease - Other Maternal Grandfather Breast Cancer Paternal Grandmother Stroke Paternal Grandmother Diabetes Paternal Grandfather Social History: Social History Socioeconomic History Marital status: Spouse name: Not on file Number of children: Not on file Years of education: Not on file Highest education level: Not on file Occupational History Not on file Tobacco Use Smoking status: Never Smoker Smokeless tobacco: Never Used Vaping Use Vaping Use: Never used Substance and Sexual Activity Alcohol use: Yes Comment: rarely Drug use: No Sexual activity: Not on file Other Topics Concern Not on file Social History Narrative Not on file Social Determinants of Health Financial Resource Strain: Not on file Food Insecurity: Not on file Transportation Needs: Not on file Physical Activity: Not on file Stress: Not on file Social Connections: Not on file Intimate Partner Violence: Not on file Housing Stability: Not on file Physical Exam: Physical Exam Obese 46 year year old female who is awake and alert. She is speaking in full sentences. Her respiratory rate is 18 on my exam and is nonlabored. Sclera and conjunctiva are clear and moist. No redness or drainage. Mouth has pink moist mucosa. I do not see any abnormalities in the posterior pharynx. She speaks in a normal voice and handle secretions without difficulty. Her neck is supple her trachea is midline. She has good range of motion neck without difficulty or discomfort. Lungs do have good symmetrical breath sounds bilaterally with good air movement. Heart is regular. Abdomen is obese, soft, nondistended. She has some mild diffuse tenderness throughout the lower abdomen. She seems to be mostly tender in the left lower quadrant. There is no guarding, rebound, or percussion tenderness. No palpable mass. Femoral pulses are symmetrical. No obvious hernia. No flank tenderness. No tenderness over the back. She sits up and cooperates with exam and moves around without difficulty or discomfort. Skin is warm and dry. No rash. Capillary refills less than 2 seconds distally. Peripheral pulses are palpable and symmetrical in the upper and lower extremities. She does move all extremities with good muscle tone and strength. Vital Signs During ED Visit Patient Vitals for the past 24 hrs: BP Temp Temp src Pulse Resp SpO2 Height Weight 05/12/22 1408 131/73 -- -- 71 16 99 % -- -- 05/12/22 1323 (!) 153/97 -- -- 65 20 96 % -- -- 05/12/22 1208 144/83 -- -- 75 20 98 % -- -- 05/12/22 1100 148/85 -- -- 75 -- 98 % -- -- 05/12/22 1026 -- -- -- -- -- -- 1.626 m (5' 4 ) (!) 145.2 kg (320 lb) 05/12/22 1025 145/85 98.2 F (36.8 C) Oral 80 20 97 % -- -- Orders/Results: Orders Placed This Encounter CT ABDOMEN/PELVIS WITHOUT CONTRAST COMPREHENSIVE METABOLIC PANEL CBC, EDIF, PLATELET LACTATE, BLOOD Troponin I, High sensitivity ondansetron 4mg/2ml (ZOFRAN) injection 4 mg pantoprazole (PROTONIX) injection 40 mg lactated ringers IV solution 500 mL ondansetron 4 MG Tab Dispersible tablet pantoprazole [address] tablet DR URINALYSIS, MACRO URINE MICROSCOPIC Results for orders placed or performed during the hospital encounter of 05/12/22 COMPREHENSIVE METABOLIC PANEL Result Value Ref Range GLUCOSE 95 70 - 100 MG/DL BUN 6 (L) 7 - 20 MG/DL CREATININE SERUM 0.74 0.52 - 1.04 MG/DL SODIUM 135 (L) 136 - 145 MMOL/L POTASSIUM 3.6 3.5 - 5.1 MMOL/L CHLORIDE 100 98 - 107 MMOL/L CALCIUM 9.1 8.4 - 10.2 MG/DL PROTEIN, TOTAL 7.6 6.3 - 8.2 GM/DL Albumin 3.6 3.5 - 5.0 G/dl BILIRUBIN, TOTAL 0.8 0.2 - 1.2 MG/DL AST 24 15 - 41 IU/L ALKALINE PHOSPHATASE 102 38 - 126 IU/L CARBON DIOXIDE (CO2) 27 22 - 30 MMOL/L A/G Ratio 0.9 (L) 1.3 - 2.2 RATIO ALT 31 14 - 54 IU/L ESTIMATED GFR, NON AMER 91 ml/min/1.73sq.m ESTIMATED GFR, 110 ml/min/1.73sq.m GFR COMMENT Average GFR for 40-49 years old = 99. CBC, EDIF, PLATELET Result Value Ref Range WBC (WHITE BLOOD COUNT) 11.6 (H) 3.6 - 11.0 10*3/uL RBC 5.08 4.0 - 5.4 10*6/uL HEMOGLOBIN (HGB) 13.9 12.0 - 16.0 G/DL HEMATOCRIT (HCT) 42.1 36.0 - 48.0 % MEAN CELL VOLUME 82.9 80.0 - 100.0 FL Mean Cell HGB 27.4 26.0 - 35.0 PG MEAN CELL HGB CONCENTRATION 33.0 27.0 - 37.0 G/DL RBC DISTRIBUTION 14.1 11.5 - 14.5 % PLATELET COUNT 340 130.0 - 400.0 10*3/uL MEAN PLATELET VOLUME 8.2 7.4 - 11.0 FL DIFFERENTIAL TYPE AUTO DIFF % NEUTROPHILS 60.1 37.0 - 75.0 % LYMPHOCYTE 28.3 20.0 - 55.0 % MONOCYTE % 6.5 0.0 - 10.0 % EOSINOPHIL % 4.2 0.0 - 11.0 % BASOPHIL % 0.9 0.0 - 2.0 % Absolute Neutrophil Count 7.0 (H) 1.4 - 6.5 10*3/uL LYMPHOCYTES, ABSOLUTE 3.3 1.2 - 3.4 10*3/uL MONOCYTES, ABSOLUTE 0.8 (H) 0.0 - 0.7 10*3/uL ABSOLUTE EOSINOPHIL COUNT 0.5 0.0 - 0.7 10*3/uL ABSOLUTE BASOPHIL COUNT 0.1 0.0 - 0.2 10*3/uL LACTATE, BLOOD Result Value Ref Range LACTATE 1.2 0.7 - 2.0 mmol/L TROPONIN I, HIGH SENSITIVITY Result Value Ref Range TROPONIN I, HIGH SENSITIVITY 4 0 - 12 pg/mL URINALYSIS, MACRO Result Value Ref Range COLOR, URINE YELLOW YELLOW APPEARANCE, URINE CLEAR CLEAR Specific [place], Urine 1.010 1.010 - 1.025 PH URINE 7.0 5.0 - 7.0 PROTEIN, URINE NEGATIVE NEGATIVE mg/dl GLUCOSE, URINE NEGATIVE NEGATIVE mg/dl KETONES, URINE NEGATIVE NEGATIVE mg/dl BILIRUBIN, URINE NEGATIVE NEGATIVE BLOOD, URINE DIPSTICK SMALL (A) NEGATIVE NITRITES, URINE NEGATIVE NEGATIVE UROBILINOGEN, URINE 0.2 0.2 - 1.0 E.U./dL LEUKOCYTE ESTERASE, URINE NEGATIVE NEGATIVE URINE MICROSCOPIC Result Value Ref Range WBC, URINE NEGATIVE NEGATIVE /HPF RBC, URINE 1 TO 5 NEGATIVE /HPF Epithelial Cells UA 1 TO 5 /HPF Mucus NEGATIVE NEGATIVE BACTERIA, URINE NEGATIVE NEGATIVE CRYSTALS, URINE NONE NONE CASTS, URINE NONE NONE /LPF COMMENT, URINE CULTURE CRITERIA NOT MET, NO CULTURE PERFORMED. Radiographic Imaging CT ABDOMEN/PELVIS WITHOUT CONTRAST Final Result IMPRESSION: No acute abnormality in the abdomen or pelvis. Colonic diverticulosis without evidence of acute diverticulitis. Procedures: Procedures Moderate Sedation Procedure: No ED Summary/MDM Patient's workup in the Emergency department was essentially benign. She is hemodynamically stable and appears very comfortable. She is medically stable for discharge. I will have her follow up the primary care provider at [facility]. She is to call Dr. Castillo today and schedule follow-up as soon as possible. Return if any other questions or concerns. She voiced understanding and agreement with this. She had no further questions. She is discharged in good Clinical Impression: 1. Blood per rectum 2. Lower abdominal pain 3. History of hematuria 4. Hypertension, unspecified type No follow-ups on file. New Prescriptions ONDANSETRON 4 MG TAB DISPERSIBLE TABLET Take 1 tablet by mouth every 4 hours as needed for Nausea. Place on tongue PANTOPRAZOLE [address] TABLET DR Take 1 tablet by mouth daily. Discontinued Medications No medications on file An After Visit Summary was printed and given to the patient with above information. . Iván Antunez MD 05/12/22 1409 [facility] 05-06-2022 History of Present illness Narrative OUTPATIENT BARIATRIC NUTRITION EDUCATION: LESSON 4 Referring Provider: Rosa Coe CNP Nutrition Assessment Anthropometrics: Ht Readings from Last 1 Encounters: 05/04/22 1.626 m (5' 4 ) Wt Readings from Last 5 Encounters: 05/06/22 (!) 145.3 kg (320 lb 4.8 oz) 03/10/22 (!) 141.5 kg (312 lb) 03/03/22 (!) 143.1 kg (315 lb 6 oz) 02/24/22 (!) 142.9 kg (315 lb) 02/10/22 (!) 145.2 kg (320 lb) [place] body weight: 54.7 kg (120 lb 9.5 oz) Adjusted ideal body weight: 90.9 kg (200 lb 7.6 oz) Body mass index is 54.98 kg/m . Ms. John Dominguez is a 46 y.o. female here in preparation for weight loss surgery. Pt is currently meeting all nutritional goals at this time. We did discuss the importance of physical activity today and how patient should continue to work on nutritional goals. Pt is eating small frequent meal and snacks and putting more emphasis on protein. Pt has already experience some non-scale victories by complying with the nutritional goals. Pt was given an extra copy of the nutritional homework and explained what to expect at final appointment. Pt was encouraged to reach out with any nutritional questions/concerns. Class type: In-person 1:1 Diet Recall: Meal What Time Breakfast 2 scrambled eggs- 14 grams 5 am Snack 1 hard boiled egg- 7 grams 7 am Lunch Salad with chicken and diaz salad (Wendys)- 36 grams 12 pm Snack Premier protein shake- 30 grams 3 pm Dinner 3 oz Grilled chicken breast with green beans or peas- 21 grams 8 pm Snack Peanut butter sandwich- 7 grams 9 pm Fluids 128 oz water, lactose free milk NA Current exercise: Pt is exercising 3-5 days/week for 60 minutes. (walking) Nutrition Goals: 1. Eat breakfast, lunch, dinner, and 2-3 snacks (5-6 small meals/day): MET 2. Consume adequate protein: MET 3. Limit sugar to no more than 10 grams per meal/snack: MET 4. Consume 64 oz of hydrating fluids/day: MET 5. Eliminate carbonation, straws, caffeine, and alcohol: MET 6. Eating off smaller plates and bowls: MET 7. Chew your food 20-30 times per bite when needed: MET 8. Meals should last 20-30 minutes: MET 9. Separate drinking and eating by 30 minutes: MET 10. Eat in this order: protein first, vegetables and fruits second, and whole grains last: MET 11. Put your utensil or handheld food down in between bites: MET 12. Begin physical activity including cardio and strength training: MET Pt was educated on the following topics: Post-Surgery Diet and [place] to Successful Weight Loss and Maintenance. Discussed: The 5 phases of the bariatric diet after sx and progression What foods/fluids are appropriate on each phase Factors that play a role in successful weight loss maintenance Sleep requirements How to meet fluid, protein and kcal goals The importance of physical activity to keep weight off Instructed pt to bring in a sample menu for pre-op nutrition appointment. Sample menu should be a phase 2 and phase 3 diet and meet pt's specific protein and fluid goal. Diet should be diverse. If protein needs are not met through food, pt should be able to verbalize how to supplement protein to meet protein goal. Pt is able to verbalize that there will be a 30-question paper test at final nutrition appointment and an 80% or higher is needed for nutrition clearance. Nutrition Diagnosis NB-1.1 Food and nutrition related knowledge deficit related to post-bariatric surgery diet and how to successfully lose and keep weight off as it relates to bariatric surgery as evidenced by pt new to bariatric program. Nutrition Intervention Nutrition Goals: 1. Eat 5-6 small meals/snacks per day (breakfast, lunch, dinner, and 2-3 snacks) 2. Consume adequate protein daily 3. Limit all sugar + sugar alcohols to no more than 10 grams per meal/snack 4. Drink 64+ oz of hydrating fluid/day 5. Eliminate carbonation, straws, caffeine, and alcohol 6. Eat off smaller plates and bowls 7. Take dime sized bites and chew food 20-30x per bite, or until it is a consistent texture 8. Meals need to last at least 20-30 minutes. Stop eating once you feel full 9. Separate food and fluids by 30 minutes. Do not drink with meals 10. Eat protein first, vegetables and fruits second, and whole grains last 11. Begin physical activity as tolerated. Goal of 150-300 minutes of moderate physical activity per week with 2+ days of strength or resistance training included Monitoring & Evaluation 1. Pt will complete all nutrition classes prior to final nutrition appointment 2. Progress towards nutrition goals and weight is tracked at each nutrition class or follow up appointment 3. All nutrition goals will be met prior to final nutrition appointment in order to receive dietitian clearance to have bariatric surgery Time spent with pt: 41 minutes PEARL Estrella Registered Dietitian, Licensed Dietitian 05/06/22 documented in this encounter [facility] 05-04-2022 Emergency department Note Discharge instructions reviewed with patient. No questions or concerns voiced. Patient exits unit with all belongings. [facility] 05-04-2022 Emergency department Note Discharge instructions reviewed with patient. No questions or concerns voiced. Patient exits unit with all belongings. documented in this encounter [facility] 04-30-2022 Telephone encounter Note I forgot to schedule her the , she called in, so I rescheduled her for 05/05 for class 4 [facility] 04-30-2022 Miscellaneous Notes I forgot to schedule her the , she called in, so I rescheduled her for 05/05 for class 4 scheduled class 4 on 04/30 lft vm to call the office to get class 4 rescheduled and it needs to be in April or she will have to start 6 months over and final nutrition appt will need to be rescheduled Sent 1st no show letter and lft vm to call the office to get class 4 rescheduled documented in this encounter [facility] 04-27-2022 Telephone encounter Note scheduled class 4 on 04/30 [facility] 04-26-2022 Telephone encounter Note lft vm to call the office to get class 4 rescheduled and it needs to be in April or she will have to start 6 months over and final nutrition appt will need to be rescheduled [facility] 04-22-2022 Telephone encounter Note Sent 1st no show letter and lft vm to call the office to get class 4 rescheduled [facility] 04-05-2022 History of Present illness Narrative Bariatric Feedback Session Name: John Dominguez Date: 04/05/2022 Time in: 1615 Time out: 1646 Length of session: 31 minutes This psychological testing feedback session is correlated to DOS 12/11/2021, the date of the original evaluation and testing. Note: Met with John Dominguez to discuss psychological testing, the bariatric evaluation and recommendations. Review of most recent nutrition visit suggests pt is doing well with them. Pt states she is eating off smaller plates and smaller silverware. Is reading labels. Is getting in her protein and fluids. Pt looked up the coping skills I mentioned. Is using these to cope with stress. Is also exercising more. Plan: John Dominguez is cleared for bariatric surgery from a psychological perspective. Chin Bah PsyD documented in this encounter [facility] 03-24-2022 Emergency department Note Went over discharge instructions with patient. She voiced understanding and has no questions. [facility] 03-24-2022 Emergency department Note Went over discharge instructions with patient. She voiced understanding and has no questions. Wrapped right ankle with tanisha wrap. Patient had MSPx4 Prior and post application documented in this encounter [facility] 03-24-2022 Emergency department Note Wrapped right ankle with tanisha wrap. Patient had MSPx4 Prior and post application [facility] 03-24-2022 Hospital Discharge instructions MARY Navarro - 03/24/2022 4:07 PM EDT You were seen in the emergency department for evaluation of your right leg. Based on your evaluation including a clinical exam and x-rays you are safe to be discharged at this time. You have been placed in a tanisha wrap for comfort and support. Elevate injury above the level of your heart. Ice 10 minutes three times a day for the first 48 hours, then use heat for 15 minutes three times a day after that. You are being sent home with a prescription for Naproxen for pain. Do not take additional ibuprofen, motrin, or aleve with this medication. You can take Tylenol when taking this medication. A referral has been placed to orthopedics for follow-up. They should be calling new to schedule a follow-up appointment reevaluation. Be sure to call your primary care provider to schedule follow-up appointment reevaluation as well you may benefit from additional outpatient imaging such as an MRI. Please discuss this with her primary care provider or the orthopedist. Return to the emergency room with any worsening or more concerning symptoms. The following attachments cannot be sent through Care Everywhere.Leg Pain (Malaysian)documented in this encounter [facility] 03-10-2022 History of Present illness Narrative OUTPATIENT BARIATRIC NUTRITION EDUCATION: LESSON 3 Referring Provider: Rosa Coe CNP Nutrition Assessment Anthropometrics: Ht Readings from Last 1 Encounters: 03/03/22 1.626 m (5' 4 ) Wt Readings from Last 5 Encounters: 03/10/22 (!) 141.5 kg (312 lb) 03/03/22 (!) 143.1 kg (315 lb 6 oz) 02/24/22 (!) 142.9 kg (315 lb) 02/10/22 (!) 145.2 kg (320 lb) 01/13/22 (!) 142.9 kg (315 lb) [place] body weight: 54.7 kg (120 lb 9.5 oz) Adjusted ideal body weight: 89.4 kg (197 lb 2.5 oz) Body mass index is 53.55 kg/m . Ms. John Dominguez is a 46 y.o. female here in preparation for weight loss surgery. Pt attended group class #3. Pt is currently meeting all nutritional goals and even noted she has been feeling better and lost some weight since the start of the program. Class type: In-person Group Class Diet Recall: Meal What Time Breakfast [place] with scrambled egg a smoothie 6 am Snack Hard boiled egg 9 am Lunch Steak and garlic butter pasta with shrimp and crap 12 pm Snack Peanut butter toast on wheat bread 2 pm Dinner Chicken and hair salad 7 pm Snack Peanut butter crackers 9 pm Fluids 65 oz of water per day. NA Current exercise: Pt is exercising 5 days/week for 30 minutes. (walking) Nutrition Goals: 1. Eat breakfast, lunch, dinner, and 2-3 snacks (5-6 small meals/day): MET 2. Consume adequate protein: MET 3. Limit sugar to no more than 10 grams per meal/snack: MET 4. Consume 64 oz of hydrating fluids/day: MET 5. Eliminate carbonation, straws, caffeine, and alcohol: MET 6. Eating off smaller plates and bowls: MET 7. Chew your food 20-30 times per bite when needed: MET 8. Meals should last 20-30 minutes: MET 9. Separate drinking and eating by 30 minutes:MET 10. Eat in this order: protein first, vegetables and fruits second, and whole grains last: MET 11. Put your utensil or handheld food down in between bites: MET 12. Begin physical activity including cardio and strength training: MET Pt was educated on the following topics: Fats and Dining Out. Discussed: Types of fat: unsaturated and saturated Tips on making healthy choices while eating out Continue with adequate well spaced protein Continue with eating 5-6x/day Continue with a inimum 64 oz water intake Importance engaging in regularly scheduled physical activity Nutrition Diagnosis NB-1.1 Food and nutrition related knowledge deficit related to fats and dining out as it relates to bariatric surgery as evidenced by pt new to bariatric program. Nutrition Intervention Nutrition Goals: 1. Eat 5-6 small meals/snacks per day (breakfast, lunch, dinner, and 2-3 snacks) 2. Consume adequate protein daily 3. Limit all sugar + sugar alcohols to no more than 10 grams per meal/snack 4. Drink 64+ oz of hydrating fluid/day 5. Eliminate carbonation, straws, caffeine, and alcohol 6. Eat off smaller plates and bowls 7. Take dime sized bites and chew food 20-30x per bite, or until it is a consistent texture 8. Meals need to last at least 20-30 minutes. Stop eating once you feel full 9. Separate food and fluids by 30 minutes. Do not drink with meals 10. Eat protein first, vegetables and fruits second, and whole grains last 11. Begin physical activity as tolerated. Goal of 150-300 minutes of moderate physical activity per week with 2+ days of strength or resistance training included Monitoring & Evaluation 1. Pt will complete all nutrition classes prior to final nutrition appointment 2. Progress towards nutrition goals and weight is tracked at each nutrition class or follow up appointment 3. All nutrition goals will be met prior to final nutrition appointment in order to receive dietitian clearance to have bariatric surgery Time spent with pt: 60 minutes PEARL Estrella Registered Dietitian, Licensed Dietitian 03/10/22 documented in this encounter [facility] 03-10-2022 Miscellaneous Notes Encounter addended by: Yuriy You RD on: 03/10/2022 12:06 PM Actions taken: Clinical Note Signed documented in this encounter [facility] 03-10-2022 Note Encounter addended b y: Yuriy You RD on: 03/10/2022 12:06 PM Actions taken: Clinical Note Signed [facility] 03-03-2022 History of Present illness Narrative Bariatric History and Physical Patient:John Dominguez :1975 Date: 03/03/2022 PRIMARY/REFERRING PHYSICIAN INFORMATION Santo Castillo HISTORY OF PRESENT ILLNESS CHIEF COMPLAINT: morbid obesity with significant comorbidities. Patient is being referred for pre operative consult for weight loss surgery HISTORY OF PRESENT ILLNESS: The patient is a very pleasant patient who has developed morbid obesity with significant comorbidities who has failed multiple dietary attempts at weight loss. John Dominguez is a 46 y.o. female who presents with complaints of obesity which is severely limiting her life style. She is interested in learning about possible surgical options to help her fight her obesity. She has tried diet and exercise programs previously. She is limited in his physical activity due to obesity. she has been obese for more than 5 years and states that their highest recorded weight is 315. Previous attempts at weight loss have included exercise routines, exercise videos, low fat/low calorie diets, commercial weight loss programs such as weight watchers.she complains of occasional reflux and denies dysphagia. Past Medical History: Diagnosis Date Anxiety Asthma Dental disease UPPER PLATE AND BROKEN AND MISSING ON LOWER Depression Diabetes mellitus Exercise tolerance finding METS > 4 Fibromyalgia GERD (gastroesophageal reflux disease) History of corticosteroid therapy > 2 YEARS Hyperlipidemia IBS (irritable bowel syndrome) Migraine Morbid obesity No advance directives Rheumatoid arthritis Skin cancer 01/2018 BCC - right cheek Wears glasses COMORBIDITIES high cholesterol Past Surgical History: Procedure Laterality Date TRANSFER/REARRANGEMENT ADJACENT TISSUE CHEEK CHIN FOREHEAD MOUTH NECK Right 02/07/2018 Laterality: Right; Surgeon: Geoffrey Mariee DO; Location: [facility] OR COMPLETE EXTRACTION OF TEETH Upper teeth removed FOOT SURGERY HYSTERECTOMY TUBAL LIGATION Current Outpatient Medications Medication Sig acetaminophen 650 MG Tab CR Take 650 mg by mouth as needed. albuterol 108 (90 Base) MCG/ACT Aero Soln inhaler INHALE 1 PUFF BY MOUTH EVERY 4 HOURS NEEDED atorvastatin 20 MG tablet Take 20 mg by mouth at bedtime. cyclobenzaprine 10 MG tablet Take 10 mg by mouth at bedtime. fluticasone 50 MCG/ACT Suspension nasal spray USE 1 SPRAY(S) IN EACH NOSTRIL TWICE DAILY hydrOXYzine pamoate 25 MG capsule Take 25 mg by mouth 3 times daily. ibuprofen 600 MG tablet Take 1 tablet by mouth every 6 hours as needed for Mild Pain. lidocaine 5 % Patch patch APPLY 1 PATCH TO THE AFFECTED AREA AND LEAVE IN PLACE FOR 12 HOURS, THEN REMOVE AND LEAVE OFF FOR 12 HOURS buPROPion 150 MG tablet XL Take 150 mg by mouth daily. (Patient not taking: Reported on 03/03/2022) Cholecalciferol 1.25 MG (45956 UT) capsule Take 1 capsule by mouth once a week. gabapentin 300 MG capsule Take 300 mg by mouth 2 times daily. (Patient not taking: Reported on 03/03/2022) omeprazole [address] capsule Take 40 mg by mouth daily. (Patient not taking: Reported on 03/03/2022) Allergies Allergen Reactions Bee Venom Anaphylaxis Sulfa Antibiotics Hives Per patient states I had hives and itching everywhere. Contrast Dye [Ivp Dye, Iodine Containing] Welts and throat closes- per patient Hitchcock Fruit [Arthur] Social History Socioeconomic History Marital status: Spouse name: Not on file Number of children: Not on file Years of education: Not on file Highest education level: Not on file Occupational History Not on file Tobacco Use Smoking status: Never Smoker Smokeless tobacco: Never Used Vaping Use Vaping Use: Never used Substance and Sexual Activity Alcohol use: Yes Comment: rarely Drug use: No Sexual activity: Not on file Other Topics Concern Not on file Social History Narrative Not on file Social Determinants of Health Financial Resource Strain: Not on file Food Insecurity: Not on file Transportation Needs: Not on file Physical Activity: Not on file Stress: Not on file Social Connections: Not on file Intimate Partner Violence: Not on file Housing Stability: Not on file Family History Problem Relation Age of Onset Breast Cancer Mother Vision Problems Mother Vision Problems Father Stroke Sister Vision Problems Sister Ovarian Cancer Maternal Grandmother Breast Cancer Maternal Grandmother Prostate Cancer Maternal Grandfather Diabetes Maternal Grandfather Coronary Artery Disease Maternal Grandfather Heart Failure Maternal Grandfather Myocardial Infarction Maternal Grandfather Heart Disease - Other Maternal Grandfather Breast Cancer Paternal Grandmother Stroke Paternal Grandmother Diabetes Paternal Grandfather Family Status Relation Name Status Mother (Not Specified) Father (Not Specified) Sister (Not Specified) MGM (Not Specified) MGF (Not Specified) PGM (Not Specified) PGF (Not Specified) REVIEW OF SYSTEMS Review of Systems Constitutional: Negative for chills, diaphoresis and fatigue. HENT: Negative for congestion, facial swelling and hearing loss. Eyes: Negative for pain, redness and itching. Respiratory: Negative for apnea, cough, choking and chest tightness. Cardiovascular: Negative for chest pain, palpitations and leg swelling. Gastrointestinal: Negative for abdominal distention, abdominal pain, constipation, diarrhea, nausea and vomiting. Endocrine: Negative for cold intolerance, heat intolerance and polyphagia. Genitourinary: Negative for difficulty urinating, dysuria, enuresis and flank pain. Musculoskeletal: Negative for arthralgias, back pain, gait problem and joint swelling. Skin: Negative for color change, pallor and rash. Allergic/Immunologic: Negative for environmental allergies, food allergies and immunocompromised state. Neurological: Negative for dizziness, light-headedness, numbness and headaches. Hematological: Negative for adenopathy. Does not bruise/bleed easily. Psychiatric/Behavioral: Negative for agitation, behavioral problems and confusion. Social History Tobacco Use Smoking Status Never Smoker Smokeless Tobacco Never Used PHYSICAL EXAM General Appearance: Well appearing, alert, in no acute distress, well-hydrated, well nourished., morbidly obese. Eyes: conjunctivae and sclerae normal, pupils equal, round, reactive to light and accommodation and no scleral icterus. Ears/Nose/Mouth/Throat: External ears normal, canals clear, TM's normal, Nares normal. Septum midline. Mucosa normal. No drainage or sinus tenderness., Lips, mucosa, and tongue normal, teeth and gums normal, oropharynx normal. Neck: Supple, no adenopathy; thyroid symmetric, normal size, no bruits. Respiratory: Clear to auscultation bilaterally Cardiovascular: Regular rate and rhythm, distal pulses intact bilaterally. Abdomen: soft, non-tender, non-distended, obese, no hernias palpated Lymph Nodes: No cervical lymphadenopathy. Musculoskeletal: Spine range of motion normal. Muscular strength intact, No joint swelling, deformity, or tenderness. Skin: No lesions noted. Neurologic: mental status intact, cranial nerves 2-12 intact, sensation to light touch and pinprick normal. Psychiatric: A&O x 3; Judgement/lnsight appropriate Rectal: deferred exam. DIAGNOSIS/IMPRESSION Encounter Diagnoses Name Primary? Morbid obesity with body mass index of 50 or higher Yes Gastroesophageal reflux disease, unspecified whether esophagitis present with Body mass index is 54.13 kg/m2. Height: 5'4 Weight:315 lbs SURGICAL PLAN Consults: consult bariatric nutrition for 6 months of preoperative supervised diets, consult bariatric psychology, consult primary care physician for medical clearance, sleep study Diagnostic Tests: CBC, CMP, Lipid Panel, Liver Function Panel, Thyroid Function, B-12, Iron Levels, H Pylori, CXR, EGD, EKG Surgical Procedure: 2. Laparoscopic Sleeve gastrectomy. I have use an anatomical chart to show the postsurgical changes that occur. I discussed expected weight loss with this procedure and I talked about common early and late complications associated with his procedure. This list included but was not limited to leaks, strictures, bleeding, postoperative infection, hernias and small bowel obstructions. I discussed dumping syndrome in detail how dietary choices can worsen this problem. I discussed the need for vitamins and postoperative.. I have discussed postsurgical follow-up. I discussed the need for supervised medical weight loss prior to surgery as well as mental health examination evaluation. 3. Preoperative work-up as detailed above All risks and benefits were discussed with the patient including: Intra-operative and/or Immediate Post-operative Risks: : The mortality rate of the sleeve gastrectomy nationwide is 0.3% to 2%. Modality rate associated with the gastric bypass is slightly higher-0.5 to 3%. Significant Bleeding: Bleeding may occur unexpectedly in the operating room. Bleeding may also occur post-operatively in the days after the operation. This bleeding may be through the intestinal tract at the staple line and result in the passage of blood in the stool. Bleeding may also be unseen inside the abdomen and be diagnosed through other means. A transfusion may be necessary in some circumstances. Re-operation to stop bleeding may be necessary. If the spleen is injured during the surgery, it may need to be removed. Anastomotic Leak: A leak is when the stapled part of the stomach does not heal. Serious complications can result from a leak, including, but not limited to a prolonged hospital stay, more operations, a long period of nothing to eat, prolonged antibiotic requirements, organ failure and . The reported incidence of anastomotic leak nationwide ranges from 0.5% to 3%. Renal Failure: Transient kidney (renal) failure occurs rarely. Irreversible kidney failure has been reported in rare cases. Prolonged Ventilation: A prolonged stay on a ventilator (breathing machine) in the intensive care unit may occur if a patient has severe sleep apnea or after certain significant complications. A temporary tracheostomy may be necessary. Heart Attack: Although a heart attack is possible after a laparoscopic possible open sleeve gastrectomy, it is very rare. Risk factors for heart disease include increased age, diabetes, hypertension, hypercholesterolemia and a family history of heart disease. Prolonged Hospital Stay: Unforeseen complications may result in a prolonged hospital stay. Intensive care admission may be required. Bowel Obstruction (in undergoing the gastric bypass): An obstruction can occur that would require re-operation. An obstruction can occur from a number of causes, such as bleeding, scarring, technical problems or hernia. Deep Vein Thrombosis (DVT)/Pulmonary Embolism: Blood clots that form in the legs, and elsewhere, and break off into the lungs may cause . Given this risk, treatments may be initiated to decrease the risk for the formation of blood clots, including the use of heparin (a medication that thins the blood), special foot and leg stockings, walking soon after surgery and medication at home after discharge from the hospital. Completely eliminating the risks of DVT (clots) altogether is not possible. The risks associated with the medications used to prevent blood clots can include excessive bleeding. Any symptoms of leg swelling, chest pain or sudden shortness of breath should be immediately reported to the surgeon. Rarely, patients develop allergies to heparin, sometimes causing very severe reactions. Other Complications that may be common: Allergic reactions, headaches, itching, medication side-effects, heartburn/reflux, bruising, gout, anesthetic complications, injury to the bowel or vessels, gas bloating, minor wound drainage, wound opening, scar formation, stroke, urinary tract infection, urinary retention, pressure sores, injury to spleen or surrounding structures, and pneumonia. The patient was advised not to become within 12-18 months following bariatric surgery. She was educated on the increased risks to mother and fetus associated with within 2 years of bariatric surgery. The patient has also been instructed to refrain from smoking and using illicit drugs both before and after their surgery. I have discussed at length the risks of office visits and surgical procedures at the hospital during the COVID-19 pandemic. The risk of kristy COVID-19 during the perioperative and postoperative care period was also explained to the patient. The patient verbalized full understanding and acceptance of these risks, as well as the quarantine time between testing and surgery. The patient fully understands that if their COVID-19 test is positive or symptoms develop prior to surgery, their surgery will be cancelled. The patient has expressed the desire to proceed with the proposed surgery and any hospital stay required. I spent greater than 30 minutes in total reviewing the patient's chart, interviewing the patient, and documenting today's visit. Mahad Dent DO 03/03/2022 12:10 PM Bariatric Surgery documented in this encounter [facility] 03-03-2022 History of Present illness Narrative Bariatric History and Physical Patient:John Dominguez :1975 Date: 03/03/2022 PRIMARY/REFERRING PHYSICIAN INFORMATION Santo Castillo HISTORY OF PRESENT ILLNESS CHIEF COMPLAINT: morbid obesity with significant comorbidities. Patient is being referred for pre operative consult for weight loss surgery HISTORY OF PRESENT ILLNESS: The patient is a very pleasant patient who has developed morbid obesity with significant comorbidities who has failed multiple dietary attempts at weight loss. John Dominguez is a 46 y.o. female who presents with complaints of obesity which is severely limiting her life style. She is interested in learning about possible surgical options to help her fight her obesity. She has tried diet and exercise programs previously. She is limited in his physical activity due to obesity. she has been obese for more than 5 years and states that their highest recorded weight is 315. Previous attempts at weight loss have included exercise routines, exercise videos, low fat/low calorie diets, commercial weight loss programs such as weight watchers.she complains of occasional reflux and denies dysphagia. Past Medical History: Diagnosis Date Anxiety Asthma Dental disease UPPER PLATE AND BROKEN AND MISSING ON LOWER Depression Diabetes mellitus Exercise tolerance finding METS > 4 Fibromyalgia GERD (gastroesophageal reflux disease) History of corticosteroid therapy > 2 YEARS Hyperlipidemia IBS (irritable bowel syndrome) Migraine Morbid obesity No advance directives Rheumatoid arthritis Skin cancer 01/2018 BCC - right cheek Wears glasses COMORBIDITIES high cholesterol Past Surgical History: Procedure Laterality Date TRANSFER/REARRANGEMENT ADJACENT TISSUE CHEEK CHIN FOREHEAD MOUTH NECK Right 02/07/2018 Laterality: Right; Surgeon: Geoffrey Mariee DO; Location: [facility] OR COMPLETE EXTRACTION OF TEETH Upper teeth removed FOOT SURGERY HYSTERECTOMY TUBAL LIGATION Current Outpatient Medications Medication Sig acetaminophen 650 MG Tab CR Take 650 mg by mouth as needed. albuterol 108 (90 Base) MCG/ACT Aero Soln inhaler INHALE 1 PUFF BY MOUTH EVERY 4 HOURS NEEDED atorvastatin 20 MG tablet Take 20 mg by mouth at bedtime. cyclobenzaprine 10 MG tablet Take 10 mg by mouth at bedtime. fluticasone 50 MCG/ACT Suspension nasal spray USE 1 SPRAY(S) IN EACH NOSTRIL TWICE DAILY hydrOXYzine pamoate 25 MG capsule Take 25 mg by mouth 3 times daily. ibuprofen 600 MG tablet Take 1 tablet by mouth every 6 hours as needed for Mild Pain. lidocaine 5 % Patch patch APPLY 1 PATCH TO THE AFFECTED AREA AND LEAVE IN PLACE FOR 12 HOURS, THEN REMOVE AND LEAVE OFF FOR 12 HOURS buPROPion 150 MG tablet XL Take 150 mg by mouth daily. (Patient not taking: Reported on 03/03/2022) Cholecalciferol 1.25 MG (76509 UT) capsule Take 1 capsule by mouth once a week. gabapentin 300 MG capsule Take 300 mg by mouth 2 times daily. (Patient not taking: Reported on 03/03/2022) omeprazole [address] capsule Take 40 mg by mouth daily. (Patient not taking: Reported on 03/03/2022) Allergies Allergen Reactions Bee Venom Anaphylaxis Sulfa Antibiotics Hives Per patient states I had hives and itching everywhere. Contrast Dye [Ivp Dye, Iodine Containing] Welts and throat closes- per patient Hitchcock Fruit [Arthur] Social History Socioeconomic History Marital status: Spouse name: Not on file Number of children: Not on file Years of education: Not on file Highest education level: Not on file Occupational History Not on file Tobacco Use Smoking status: Never Smoker Smokeless tobacco: Never Used Vaping Use Vaping Use: Never used Substance and Sexual Activity Alcohol use: Yes Comment: rarely Drug use: No Sexual activity: Not on file Other Topics Concern Not on file Social History Narrative Not on file Social Determinants of Health Financial Resource Strain: Not on file Food Insecurity: Not on file Transportation Needs: Not on file Physical Activity: Not on file Stress: Not on file Social Connections: Not on file Intimate Partner Violence: Not on file Housing Stability: Not on file Family History Problem Relation Age of Onset Breast Cancer Mother Vision Problems Mother Vision Problems Father Stroke Sister Vision Problems Sister Ovarian Cancer Maternal Grandmother Breast Cancer Maternal Grandmother Prostate Cancer Maternal Grandfather Diabetes Maternal Grandfather Coronary Artery Disease Maternal Grandfather Heart Failure Maternal Grandfather Myocardial Infarction Maternal Grandfather Heart Disease - Other Maternal Grandfather Breast Cancer Paternal Grandmother Stroke Paternal Grandmother Diabetes Paternal Grandfather Family Status Relation Name Status Mother (Not Specified) Father (Not Specified) Sister (Not Specified) MGM (Not Specified) MGF (Not Specified) PGM (Not Specified) PGF (Not Specified) REVIEW OF SYSTEMS Review of Systems Constitutional: Negative for chills, diaphoresis and fatigue. HENT: Negative for congestion, facial swelling and hearing loss. Eyes: Negative for pain, redness and itching. Respiratory: Negative for apnea, cough, choking and chest tightness. Cardiovascular: Negative for chest pain, palpitations and leg swelling. Gastrointestinal: Negative for abdominal distention, abdominal pain, constipation, diarrhea, nausea and vomiting. Endocrine: Negative for cold intolerance, heat intolerance and polyphagia. Genitourinary: Negative for difficulty urinating, dysuria, enuresis and flank pain. Musculoskeletal: Negative for arthralgias, back pain, gait problem and joint swelling. Skin: Negative for color change, pallor and rash. Allergic/Immunologic: Negative for environmental allergies, food allergies and immunocompromised state. Neurological: Negative for dizziness, light-headedness, numbness and headaches. Hematological: Negative for adenopathy. Does not bruise/bleed easily. Psychiatric/Behavioral: Negative for agitation, behavioral problems and confusion. Social History Tobacco Use Smoking Status Never Smoker Smokeless Tobacco Never Used PHYSICAL EXAM General Appearance: Well appearing, alert, in no acute distress, well-hydrated, well nourished., morbidly obese. Eyes: conjunctivae and sclerae normal, pupils equal, round, reactive to light and accommodation and no scleral icterus. Ears/Nose/Mouth/Throat: External ears normal, canals clear, TM's normal, Nares normal. Septum midline. Mucosa normal. No drainage or sinus tenderness., Lips, mucosa, and tongue normal, teeth and gums normal, oropharynx normal. Neck: Supple, no adenopathy; thyroid symmetric, normal size, no bruits. Respiratory: Clear to auscultation bilaterally Cardiovascular: Regular rate and rhythm, distal pulses intact bilaterally. Abdomen: soft, non-tender, non-distended, obese, no hernias palpated Lymph Nodes: No cervical lymphadenopathy. Musculoskeletal: Spine range of motion normal. Muscular strength intact, No joint swelling, deformity, or tenderness. Skin: No lesions noted. Neurologic: mental status intact, cranial nerves 2-12 intact, sensation to light touch and pinprick normal. Psychiatric: A&O x 3; Judgement/lnsight appropriate Rectal: deferred exam. DIAGNOSIS/IMPRESSION Encounter Diagnoses Name Primary? Morbid obesity with body mass index of 50 or higher Yes Gastroesophageal reflux disease, unspecified whether esophagitis present with Body mass index is 54.13 kg/m2. Height: 5'4 Weight:315 lbs SURGICAL PLAN Consults: consult bariatric nutrition for 6 months of preoperative supervised diets, consult bariatric psychology, consult primary care physician for medical clearance, sleep study Diagnostic Tests: CBC, CMP, Lipid Panel, Liver Function Panel, Thyroid Function, B-12, Iron Levels, H Pylori, CXR, EGD, EKG Surgical Procedure: 2. Laparoscopic Sleeve gastrectomy. I have use an anatomical chart to show the postsurgical changes that occur. I discussed expected weight loss with this procedure and I talked about common early and late complications associated with his procedure. This list included but was not limited to leaks, strictures, bleeding, postoperative infection, hernias and small bowel obstructions. I discussed dumping syndrome in detail how dietary choices can worsen this problem. I discussed the need for vitamins and postoperative.. I have discussed postsurgical follow-up. I discussed the need for supervised medical weight loss prior to surgery as well as mental health examination evaluation. 3. Preoperative work-up as detailed above All risks and benefits were discussed with the patient including: Intra-operative and/or Immediate Post-operative Risks: : The mortality rate of the sleeve gastrectomy nationwide is 0.3% to 2%. Modality rate associated with the gastric bypass is slightly higher-0.5 to 3%. Significant Bleeding: Bleeding may occur unexpectedly in the operating room. Bleeding may also occur post-operatively in the days after the operation. This bleeding may be through the intestinal tract at the staple line and result in the passage of blood in the stool. Bleeding may also be unseen inside the abdomen and be diagnosed through other means. A transfusion may be necessary in some circumstances. Re-operation to stop bleeding may be necessary. If the spleen is injured during the surgery, it may need to be removed. Anastomotic Leak: A leak is when the stapled part of the stomach does not heal. Serious complications can result from a leak, including, but not limited to a prolonged hospital stay, more operations, a long period of nothing to eat, prolonged antibiotic requirements, organ failure and . The reported incidence of anastomotic leak nationwide ranges from 0.5% to 3%. Renal Failure: Transient kidney (renal) failure occurs rarely. Irreversible kidney failure has been reported in rare cases. Prolonged Ventilation: A prolonged stay on a ventilator (breathing machine) in the intensive care unit may occur if a patient has severe sleep apnea or after certain significant complications. A temporary tracheostomy may be necessary. Heart Attack: Although a heart attack is possible after a laparoscopic possible open sleeve gastrectomy, it is very rare. Risk factors for heart disease include increased age, diabetes, hypertension, hypercholesterolemia and a family history of heart disease. Prolonged Hospital Stay: Unforeseen complications may result in a prolonged hospital stay. Intensive care admission may be required. Bowel Obstruction (in undergoing the gastric bypass): An obstruction can occur that would require re-operation. An obstruction can occur from a number of causes, such as bleeding, scarring, technical problems or hernia. Deep Vein Thrombosis (DVT)/Pulmonary Embolism: Blood clots that form in the legs, and elsewhere, and break off into the lungs may cause . Given this risk, treatments may be initiated to decrease the risk for the formation of blood clots, including the use of heparin (a medication that thins the blood), special foot and leg stockings, walking soon after surgery and medication at home after discharge from the hospital. Completely eliminating the risks of DVT (clots) altogether is not possible. The risks associated with the medications used to prevent blood clots can include excessive bleeding. Any symptoms of leg swelling, chest pain or sudden shortness of breath should be immediately reported to the surgeon. Rarely, patients develop allergies to heparin, sometimes causing very severe reactions. Other Complications that may be common: Allergic reactions, headaches, itching, medication side-effects, heartburn/reflux, bruising, gout, anesthetic complications, injury to the bowel or vessels, gas bloating, minor wound drainage, wound opening, scar formation, stroke, urinary tract infection, urinary retention, pressure sores, injury to spleen or surrounding structures, and pneumonia. The patient was advised not to become within 12-18 months following bariatric surgery. She was educated on the increased risks to mother and fetus associated with within 2 years of bariatric surgery. The patient has also been instructed to refrain from smoking and using illicit drugs both before and after their surgery. I have discussed at length the risks of office visits and surgical procedures at the hospital during the COVID-19 pandemic. The risk of kristy COVID-19 during the perioperative and postoperative care period was also explained to the patient. The patient verbalized full understanding and acceptance of these risks, as well as the quarantine time between testing and surgery. The patient fully understands that if their COVID-19 test is positive or symptoms develop prior to surgery, their surgery will be cancelled. The patient has expressed the desire to proceed with the proposed surgery and any hospital stay required. I spent greater than 30 minutes in total reviewing the patient's chart, interviewing the patient, and documenting today's visit. Mahad Dent DO 03/03/2022 12:10 PM Bariatric Surgery documented in this encounter [facility] 03-03-2022 Miscellaneous Notes Addended by: ABRAHAM VIRK on: 03/04/2022 02:05 PM Modules accepted: Orders, SmartSet documented in this encounter [facility] 03-03-2022 Note Addended by: ABRAHAM VIRK on: 03/04/2022 02:05 PM Modules accepted: Orders, SmartSet [facility] 03-02-2022 Telephone encounter Note Patient is scheduled to establish with Dr Dent [facility] 03-02-2022 Miscellaneous Notes Patient is scheduled to establish with Dr Dent Patient calling to reschedule her EGD to after 02/19/22. Advised Dr Rodriguez is leaving. She would like to transfer to Dr Dent. documented in this encounter [facility] 02-24-2022 History of Present illness Narrative OUTPATIENT BARIATRIC NUTRITION EDUCATION: LESSON 1 Referring Provider: Rosa Coe CNP Nutrition Assessment Anthropometrics: Ht Readings from Last 1 Encounters: 02/10/22 1.626 m (5' 4 ) Wt Readings from Last 5 Encounters: 02/24/22 (!) 142.9 kg (315 lb) 02/10/22 (!) 145.2 kg (320 lb) 01/13/22 (!) 142.9 kg (315 lb) 01/01/22 (!) 142 kg (313 lb) 12/31/21 (!) 143 kg (315 lb 3.2 oz) Easley body weight: 54.7 kg (120 lb 9.5 oz) Adjusted ideal body weight: 90 kg (198 lb 5.7 oz) Body mass index is 54.07 kg/m . Ms. John Dominguez is a 46 y.o. female here in preparation for weight loss surgery. Pt attended group class #1. Pt is making great progress on nutritional goals. It seems patient is having a protein source at each meal and snack. Today we discussed how doughy carbohydrates like thick pizza crust tend to cause issues after surgery. Pt also seems to be consuming a lot of high fat/procsses meats. I would recommend patient should try to utilize more lean sources to eliminated excess saturated fat and total fat calories. Pt is currently meeting all nutritional goals and should continue these habits to ensure success. Class type: In-person Group Class Diet Recall: Meal What Time Breakfast Premier protein shake and egg/sauasage burrito 6 am Snack Ritz peanut butter crackers 8 am Lunch Chicken,hammond,mushroom pizza 12 pm Snack 3 hard boiled eggs 2 pm Dinner 2 slices of chicken hammond, mushroom pizza 8 pm Snack 4 hard boiled eggs 10 pm Fluids 6-8 23.7 oz bottles of water NA Current exercise: Pt is exercising 7 days/week for 30 minutes. (walking) Nutrition Goals: 1. Eat breakfast, lunch, dinner, and 2-3 snacks (5-6 small meals/day): MET 2. Consume adequate protein: MET 3. Limit sugar to no more than 10 grams per meal/snack: MET 4. Consume 64 oz of hydrating fluids/day: MET 5. Eliminate carbonation, straws, caffeine, and alcohol: MET 6. Eating off smaller plates and bowls: MET 7. Chew your food 20-30 times per bite when needed: MET 8. Meals should last 20-30 minutes: MET 9. Separate drinking and eating by 30 minutes: MET 10. Eat in this order: protein first, vegetables and fruits second, and whole grains last: MET 11. Put your utensil or handheld food down in between bites: MET 12. Begin physical activity including cardio and strength training: MET (Pt encouraged to do strength training) Pt was educated on the following topics: Carbohydrates and Fluid. Discussed and encouraged the following: Eat 3 meals per day, including breakfast Limit snacks/nibbles to 3 per day Eliminate simple sugars Drink at least 64 ounces of no-calorie fluids daily Begin regular physical activity Eliminate carbonate beverages Eliminate caffeine Eliminate alcohol Don t drink with meals Eating protein first, then vegetables and fruit and whole grains last Put your fork down between bites Stop eating when no longer hungry Eating complex carbohydrates Using small plates, bowls and cups Using baby spoons an forks to encourage small bites Nutrition Diagnosis NB-1.1 Food and nutrition-related knowledge deficit related to carbohydrate and fluid needs after bariatric sx as evidenced by pt new to bariatric program. Nutrition Intervention Nutrition Goals: 1. Eat 5-6 small meals/snacks per day (breakfast, lunch, dinner, and 2-3 snacks) 2. Consume adequate protein 3. Limit all sugar + sugar alcohols to no more than 10 grams per meal/snack 4. Drink 64+ oz of hydrating fluid/day 5. Eliminate carbonation, straws, caffeine, and alcohol 6. Eat off smaller plates and bowls 7. Take dime sized bites and chew food 20-30x per bite, or until it is a consistent texture 8. Meals need to last at least 20-30 minutes. Stop eating once you feel full 9. Separate food and fluids by 30 minutes. Do not drink with meals 10. Eat protein first, vegetables and fruits second, and whole grains last 11. Begin physical activity as tolerated. Goal of 150-300 minutes of moderate physical activity per week with 2+ days of strength or resistance training included Monitoring & Evaluation 1. Pt will complete all nutrition classes prior to final nutrition appointment 2. Progress towards nutrition goals and weight is tracked at each nutrition class or follow up appointment 3. All nutrition goals will be met prior to final nutrition appointment in order to receive dietitian clearance to have bariatric surgery Time spent with pt: 60 minutes PEARL Estrella Registered Dietitian, Licensed Dietitian 02/24/22 documented in this encounter [facility] 02-10-2022 Emergency department Note Patient unable to be fitted for crutches per weight limit. [facility] 02-10-2022 Emergency department Note Patient unable to be fitted for crutches per weight limit. documented in this encounter [facility] 02-09-2022 History of Present illness Narrative Patient presents today for ED follow up. Went to [facility] ED 02/09/2022 with chief complaint of right ankle pain after twisting injury. Was diagnosed with ankle sprain and was provided with rx for ibuprofen 600mg. Was also placed in tanisha wrap and instructed to use crutches. Returned to ED the following day 02/10/2022 with persistent pain and inability to find crutches. Was provided with walking boot and crutches. XR obtained during first ED eval and wnl per chart review, but patient states that she saw note about bone spurs on MyChart. Reports persistent pain - localized to medial aspect of R ankle and worse with any ROM or weight bearing. Called [facility] and has appt scheduled for 03/10/2022. Has had little relief with ibuprofen and Tylenol. Flexeril helped her sleep, but ran out of medication. Does report hx similar pain in the past that was better with steroid injection. [facility] 205 DO Work Phone: 02-09-2022 Physician Emergency department Note Emergency Department Report [facility] EMERGENCY DEPARTMENT Service Date:.02/09/22 PCP: Santo Castillo Chief Complaint: Chief Complaint Patient presents with Ankle Pain To ED with c/o right ankle pain for a couple days. Patient states it hurts worse today after twisting it HPI John Dominguez is a 46 y.o. female presents to the ED today due to right ankle pain. Per report patient has had symptoms for a couple days. Patient thinks she may rolled it but she is not sure. Patient denies numbness tingling denies weakness. Patient has had injuries to the ankle before but nothing where she had to be evaluated by physician. Review of Systems: Review of Systems All other systems reviewed and are negative. Past Medical History: Past Medical History: Diagnosis Date Anxiety Asthma Dental disease UPPER PLATE AND BROKEN AND MISSING ON LOWER Depression Diabetes mellitus Exercise tolerance finding METS > 4 Fibromyalgia GERD (gastroesophageal reflux disease) History of corticosteroid therapy > 2 YEARS Hyperlipidemia IBS (irritable bowel syndrome) Migraine Morbid obesity No advance directives Rheumatoid arthritis Skin cancer 01/2018 BCC - right cheek Wears glasses Past Surgical History: Past Surgical History: Procedure Laterality Date TRANSFER/REARRANGEMENT ADJACENT TISSUE CHEEK CHIN FOREHEAD MOUTH NECK Right 02/07/2018 Laterality: Right; Surgeon: Geoffrey Mariee DO; Location: [facility] OR COMPLETE EXTRACTION OF TEETH Upper teeth removed FOOT SURGERY HYSTERECTOMY TUBAL LIGATION Allergies: Allergies Allergen Reactions Bee Venom Anaphylaxis Sulfa Antibiotics Hives Per patient states I had hives and itching everywhere. Contrast Dye [Ivp Dye, Iodine Containing] Welts and throat closes- per patient Hitchcock Fruit [Arthur] Medications: Patient's Medications New Prescriptions IBUPROFEN 600 MG TABLET Take 1 tablet by mouth every 6 hours as needed for Mild Pain. Previous Medications ACETAMINOPHEN 650 MG TAB CR Take 650 mg by mouth as needed. ALBUTEROL 108 (90 BASE) MCG/ACT AERO SOLN INHALER INHALE 1 PUFF BY MOUTH EVERY 4 HOURS NEEDED ATORVASTATIN 20 MG TABLET Take 20 mg by mouth at bedtime. BUPROPION 150 MG TABLET XL Take 150 mg by mouth daily. CHOLECALCIFEROL 1.25 MG (20759 UT) CAPSULE Take 1 capsule by mouth once a week. CYCLOBENZAPRINE 10 MG TABLET Take 10 mg by mouth at bedtime. FLUTICASONE 50 MCG/ACT SUSPENSION NASAL SPRAY USE 1 SPRAY(S) IN EACH NOSTRIL TWICE DAILY GABAPENTIN 300 MG CAPSULE Take 300 mg by mouth 2 times daily. HYDROXYZINE PAMOATE 25 MG CAPSULE Take 25 mg by mouth 3 times daily. LIDOCAINE 5 % PATCH PATCH APPLY 1 PATCH TO THE AFFECTED AREA AND LEAVE IN PLACE FOR 12 HOURS, THEN REMOVE AND LEAVE OFF FOR 12 HOURS OMEPRAZOLE [address] CAPSULE Take 40 mg by mouth daily. Modified Medications No medications on file Discontinued Medications NAPROXEN 500 MG TABLET Take 1 Unspecified by mouth Every 12 hours as needed. Family History: Family History Problem Relation Age of Onset Breast Cancer Mother Vision Problems Mother Vision Problems Father Stroke Sister Vision Problems Sister Ovarian Cancer Maternal Grandmother Breast Cancer Maternal Grandmother Prostate Cancer Maternal Grandfather Diabetes Maternal Grandfather Coronary Artery Disease Maternal Grandfather Heart Failure Maternal Grandfather Myocardial Infarction Maternal Grandfather Heart Disease - Other Maternal Grandfather Breast Cancer Paternal Grandmother Stroke Paternal Grandmother Diabetes Paternal Grandfather Social History: Social History Socioeconomic History Marital status: Spouse name: Not on file Number of children: Not on file Years of education: Not on file Highest education level: Not on file Occupational History Not on file Tobacco Use Smoking status: Never Smoker Smokeless tobacco: Never Used Vaping Use Vaping Use: Never used Substance and Sexual Activity Alcohol use: Yes Comment: rarely Drug use: No Sexual activity: Not on file Other Topics Concern Not on file Social History Narrative Not on file Social Determinants of Health Financial Resource Strain: Not on file Food Insecurity: Not on file Transportation Needs: Not on file Physical Activity: Not on file Stress: Not on file Social Connections: Not on file Intimate Partner Violence: Not on file Housing Stability: Not on file Physical Exam: Physical Exam Constitutional: Appearance: Normal appearance. HENT: Head: Normocephalic and atraumatic. Right Ear: External ear normal. Left Ear: External ear normal. Nose: Nose normal. Mouth/Throat: Mouth: Mucous membranes are moist. Pharynx: Oropharynx is clear. Eyes: Conjunctiva/sclera: Conjunctivae normal. Pupils: Pupils are equal, round, and reactive to light. Cardiovascular: Rate and Rhythm: Normal rate and regular rhythm. Pulses: Normal pulses. Pulmonary: Effort: Pulmonary effort is normal. No respiratory distress. Breath sounds: Normal breath sounds. No wheezing. Abdominal: General: Abdomen is flat. Bowel sounds are normal. There is no distension. Palpations: Abdomen is soft. Tenderness: There is no abdominal tenderness. Musculoskeletal: General: Normal range of motion. Cervical back: Normal range of motion and neck supple. Comments: Tenderness to palpation to the right lateral ankle. Ligaments appear to be intact. Skin: General: Skin is warm and dry. Capillary Refill: Capillary refill takes less than 2 seconds. Neurological: General: No focal deficit present. Mental Status: She is alert and oriented to person, place, and time. Mental status is at baseline. Psychiatric: Mood and Affect: Mood normal. Behavior: Behavior normal. Vital Signs During ED Visit Patient Vitals for the past 24 hrs: BP Temp Temp src Pulse Resp SpO2 02/09/22 0833 151/72 98.1 F (36.7 C) Oral 80 18 98 % Differential Diagnosis: Fracture, dislocation, sprain Orders/Results: Orders Placed This Encounter XR ANKLE RIGHT 3+ VIEWS AMB REFERRAL TO SPORTS MEDICINE ibuprofen 600 MG tablet Results for orders placed or performed in visit on 12/09/21 IRON/IRON BINDING/TRANSFERRIN Result Value Ref Range IRON 80 37 - 170 UG/DL TOTAL IRON BINDING 356 250 - 450 UG/DL Transferrin Saturation (%) 22 % VITAMIN D (25-HYDROXY,TOTAL) Result Value Ref Range VITAMIN D 25 HYDROXY 13.7 (L) >30 NG/ML B12 & FOLATE Result Value Ref Range VITAMIN B12 291 180 - 914 PG/ML FOLATE 16.3 >5.9 NG/ML VITAMIN B1 Result Value Ref Range Vitamin B1, Thiamine, plasma 160.5 TSH W/FT4 REFLEX Result Value Ref Range TSH, Reflex FT4 2.087 0.45 - 5.33 uIU/ML LIPID PANEL W CALCULATED LDL Result Value Ref Range CHOLESTEROL 186 100 - 199 MG/DL TRIGLYCERIDE 208 (H) <150 MG/DL HDL CHOLESTEROL 35 (L) 40 - 60 MG/DL LDL CHOLESTEROL, CALCULATED 109 (H) 0 - 100 MG/DL VLDL Cholesterol, Calculated 42 (H) 5.0 - 25.0 MG/DL TCHOL/HDL RATIO, MANUAL ENTER 5.31 RATIO COMPREHENSIVE METABOLIC PANEL Result Value Ref Range GLUCOSE 99 70 - 100 MG/DL BUN 10 7 - 20 MG/DL CREATININE SERUM 0.79 0.52 - 1.04 MG/DL SODIUM 137 136 - 145 MMOL/L POTASSIUM 4.2 3.5 - 5.1 MMOL/L CHLORIDE 103 98 - 107 MMOL/L CALCIUM 9.0 8.4 - 10.2 MG/DL PROTEIN, TOTAL 8.0 6.3 - 8.2 GM/DL ALBUMIN 3.6 3.5 - 5.0 G/dl BILIRUBIN, TOTAL 0.8 0.2 - 1.2 MG/DL AST 39 15 - 41 IU/L ALKALINE PHOSPHATASE 104 38 - 126 IU/L CARBON DIOXIDE (CO2) 29 22 - 30 MMOL/L A/G Ratio 0.8 (L) 1.3 - 2.2 RATIO ALT 50 14 - 54 IU/L ESTIMATED GFR, NON AMER 84 ml/min/1.73sq.m ESTIMATED GFR, 102 ml/min/1.73sq.m GFR COMMENT Average GFR for 40-49 years old = 99. HEMOGLOBIN A1C Result Value Ref Range HEMOGLOBIN A1C 6.0 (H) <6 % Estimated Average Glucose 126 mg/dL CBC,PLATELETS Result Value Ref Range WBC (WHITE BLOOD COUNT) 10.7 3.6 - 11.0 10*3/uL RBC 5.08 4.0 - 5.4 10*6/uL HEMOGLOBIN (HGB) 13.8 12.0 - 16.0 G/DL HEMATOCRIT (HCT) 41.3 36.0 - 48.0 % MEAN CELL VOLUME 81.4 80.0 - 100.0 FL Mean Cell HGB 27.2 26.0 - 35.0 PG MEAN CELL HGB CONCENTRATION 33.5 27.0 - 37.0 G/DL RBC DISTRIBUTION 14.6 (H) 11.5 - 14.5 % PLATELET COUNT 327 130.0 - 400.0 10*3/uL MEAN PLATELET VOLUME 8.0 7.4 - 11.0 FL Radiographic Imaging XR ANKLE RIGHT 3+ VIEWS Final Result IMPRESSION: No acute osseous abnormality of the right ankle. Moderate Sedation Procedure: No Procedures: Procedures ED Summary: Images showed no fracture. Patient be placed in Tanisha wrap and crutches and ibuprofen for pain. Patient has been advised possible occult fracture and the need for follow-up in 10 days if symptoms do not improve. Patient's ice area and rest. Patient can return for change in symptoms, or symptoms, any other issues. Clinical Impression: 1. Sprain of right ankle, unspecified ligament, initial encounter No follow-ups on file. New Prescriptions IBUPROFEN 600 MG TABLET Take 1 tablet by mouth every 6 hours as needed for Mild Pain. Discontinued Medications NAPROXEN 500 MG TABLET Take 1 Unspecified by mouth Every 12 hours as needed. An After Visit Summary was printed and given to the patient with above information. . . Apolinar Elizondo MD 02/09/22 0933 [facility] 02-09-2022 Emergency department Note Emergency Department Report [facility] EMERGENCY DEPARTMENT Service Date:.02/09/22 PCP: Santo Castillo Chief Complaint: Chief Complaint Patient presents with Ankle Pain To ED with c/o right ankle pain for a couple days. Patient states it hurts worse today after twisting it HPI John Dominguez is a 46 y.o. female presents to the ED today due to right ankle pain. Per report patient has had symptoms for a couple days. Patient thinks she may rolled it but she is not sure. Patient denies numbness tingling denies weakness. Patient has had injuries to the ankle before but nothing where she had to be evaluated by physician. Review of Systems: Review of Systems All other systems reviewed and are negative. Past Medical History: Past Medical History: Diagnosis Date Anxiety Asthma Dental disease UPPER PLATE AND BROKEN AND MISSING ON LOWER Depression Diabetes mellitus Exercise tolerance finding METS > 4 Fibromyalgia GERD (gastroesophageal reflux disease) History of corticosteroid therapy > 2 YEARS Hyperlipidemia IBS (irritable bowel syndrome) Migraine Morbid obesity No advance directives Rheumatoid arthritis Skin cancer 01/2018 BCC - right cheek Wears glasses Past Surgical History: Past Surgical History: Procedure Laterality Date TRANSFER/REARRANGEMENT ADJACENT TISSUE CHEEK CHIN FOREHEAD MOUTH NECK Right 02/07/2018 Laterality: Right; Surgeon: Geoffrey Mariee DO; Location: [facility] OR COMPLETE EXTRACTION OF TEETH Upper teeth removed FOOT SURGERY HYSTERECTOMY TUBAL LIGATION Allergies: Allergies Allergen Reactions Bee Venom Anaphylaxis Sulfa Antibiotics Hives Per patient states I had hives and itching everywhere. Contrast Dye [Ivp Dye, Iodine Containing] Welts and throat closes- per patient Hitchcock Fruit [Arthur] Medications: Patient's Medications New Prescriptions IBUPROFEN 600 MG TABLET Take 1 tablet by mouth every 6 hours as needed for Mild Pain. Previous Medications ACETAMINOPHEN 650 MG TAB CR Take 650 mg by mouth as needed. ALBUTEROL 108 (90 BASE) MCG/ACT AERO SOLN INHALER INHALE 1 PUFF BY MOUTH EVERY 4 HOURS NEEDED ATORVASTATIN 20 MG TABLET Take 20 mg by mouth at bedtime. BUPROPION 150 MG TABLET XL Take 150 mg by mouth daily. CHOLECALCIFEROL 1.25 MG (07012 UT) CAPSULE Take 1 capsule by mouth once a week. CYCLOBENZAPRINE 10 MG TABLET Take 10 mg by mouth at bedtime. FLUTICASONE 50 MCG/ACT SUSPENSION NASAL SPRAY USE 1 SPRAY(S) IN EACH NOSTRIL TWICE DAILY GABAPENTIN 300 MG CAPSULE Take 300 mg by mouth 2 times daily. HYDROXYZINE PAMOATE 25 MG CAPSULE Take 25 mg by mouth 3 times daily. LIDOCAINE 5 % PATCH PATCH APPLY 1 PATCH TO THE AFFECTED AREA AND LEAVE IN PLACE FOR 12 HOURS, THEN REMOVE AND LEAVE OFF FOR 12 HOURS OMEPRAZOLE [address] CAPSULE Take 40 mg by mouth daily. Modified Medications No medications on file Discontinued Medications NAPROXEN 500 MG TABLET Take 1 Unspecified by mouth Every 12 hours as needed. Family History: Family History Problem Relation Age of Onset Breast Cancer Mother Vision Problems Mother Vision Problems Father Stroke Sister Vision Problems Sister Ovarian Cancer Maternal Grandmother Breast Cancer Maternal Grandmother Prostate Cancer Maternal Grandfather Diabetes Maternal Grandfather Coronary Artery Disease Maternal Grandfather Heart Failure Maternal Grandfather Myocardial Infarction Maternal Grandfather Heart Disease - Other Maternal Grandfather Breast Cancer Paternal Grandmother Stroke Paternal Grandmother Diabetes Paternal Grandfather Social History: Social History Socioeconomic History Marital status: Spouse name: Not on file Number of children: Not on file Years of education: Not on file Highest education level: Not on file Occupational History Not on file Tobacco Use Smoking status: Never Smoker Smokeless tobacco: Never Used Vaping Use Vaping Use: Never used Substance and Sexual Activity Alcohol use: Yes Comment: rarely Drug use: No Sexual activity: Not on file Other Topics Concern Not on file Social History Narrative Not on file Social Determinants of Health Financial Resource Strain: Not on file Food Insecurity: Not on file Transportation Needs: Not on file Physical Activity: Not on file Stress: Not on file Social Connections: Not on file Intimate Partner Violence: Not on file Housing Stability: Not on file Physical Exam: Physical Exam Constitutional: Appearance: Normal appearance. HENT: Head: Normocephalic and atraumatic. Right Ear: External ear normal. Left Ear: External ear normal. Nose: Nose normal. Mouth/Throat: Mouth: Mucous membranes are moist. Pharynx: Oropharynx is clear. Eyes: Conjunctiva/sclera: Conjunctivae normal. Pupils: Pupils are equal, round, and reactive to light. Cardiovascular: Rate and Rhythm: Normal rate and regular rhythm. Pulses: Normal pulses. Pulmonary: Effort: Pulmonary effort is normal. No respiratory distress. Breath sounds: Normal breath sounds. No wheezing. Abdominal: General: Abdomen is flat. Bowel sounds are normal. There is no distension. Palpations: Abdomen is soft. Tenderness: There is no abdominal tenderness. Musculoskeletal: General: Normal range of motion. Cervical back: Normal range of motion and neck supple. Comments: Tenderness to palpation to the right lateral ankle. Ligaments appear to be intact. Skin: General: Skin is warm and dry. Capillary Refill: Capillary refill takes less than 2 seconds. Neurological: General: No focal deficit present. Mental Status: She is alert and oriented to person, place, and time. Mental status is at baseline. Psychiatric: Mood and Affect: Mood normal. Behavior: Behavior normal. Vital Signs During ED Visit Patient Vitals for the past 24 hrs: BP Temp Temp src Pulse Resp SpO2 02/09/22 0833 151/72 98.1 F (36.7 C) Oral 80 18 98 % Differential Diagnosis: Fracture, dislocation, sprain Orders/Results: Orders Placed This Encounter XR ANKLE RIGHT 3+ VIEWS AMB REFERRAL TO SPORTS MEDICINE ibuprofen 600 MG tablet Results for orders placed or performed in visit on 12/09/21 IRON/IRON BINDING/TRANSFERRIN Result Value Ref Range IRON 80 37 - 170 UG/DL TOTAL IRON BINDING 356 250 - 450 UG/DL Transferrin Saturation (%) 22 % VITAMIN D (25-HYDROXY,TOTAL) Result Value Ref Range VITAMIN D 25 HYDROXY 13.7 (L) >30 NG/ML B12 & FOLATE Result Value Ref Range VITAMIN B12 291 180 - 914 PG/ML FOLATE 16.3 >5.9 NG/ML VITAMIN B1 Result Value Ref Range Vitamin B1, Thiamine, plasma 160.5 TSH W/FT4 REFLEX Result Value Ref Range TSH, Reflex FT4 2.087 0.45 - 5.33 uIU/ML LIPID PANEL W CALCULATED LDL Result Value Ref Range CHOLESTEROL 186 100 - 199 MG/DL TRIGLYCERIDE 208 (H) <150 MG/DL HDL CHOLESTEROL 35 (L) 40 - 60 MG/DL LDL CHOLESTEROL, CALCULATED 109 (H) 0 - 100 MG/DL VLDL Cholesterol, Calculated 42 (H) 5.0 - 25.0 MG/DL TCHOL/HDL RATIO, MANUAL ENTER 5.31 RATIO COMPREHENSIVE METABOLIC PANEL Result Value Ref Range GLUCOSE 99 70 - 100 MG/DL BUN 10 7 - 20 MG/DL CREATININE SERUM 0.79 0.52 - 1.04 MG/DL SODIUM 137 136 - 145 MMOL/L POTASSIUM 4.2 3.5 - 5.1 MMOL/L CHLORIDE 103 98 - 107 MMOL/L CALCIUM 9.0 8.4 - 10.2 MG/DL PROTEIN, TOTAL 8.0 6.3 - 8.2 GM/DL ALBUMIN 3.6 3.5 - 5.0 G/dl BILIRUBIN, TOTAL 0.8 0.2 - 1.2 MG/DL AST 39 15 - 41 IU/L ALKALINE PHOSPHATASE 104 38 - 126 IU/L CARBON DIOXIDE (CO2) 29 22 - 30 MMOL/L A/G Ratio 0.8 (L) 1.3 - 2.2 RATIO ALT 50 14 - 54 IU/L ESTIMATED GFR, NON AMER 84 ml/min/1.73sq.m ESTIMATED GFR, 102 ml/min/1.73sq.m GFR COMMENT Average GFR for 40-49 years old = 99. HEMOGLOBIN A1C Result Value Ref Range HEMOGLOBIN A1C 6.0 (H) <6 % Estimated Average Glucose 126 mg/dL CBC,PLATELETS Result Value Ref Range WBC (WHITE BLOOD COUNT) 10.7 3.6 - 11.0 10*3/uL RBC 5.08 4.0 - 5.4 10*6/uL HEMOGLOBIN (HGB) 13.8 12.0 - 16.0 G/DL HEMATOCRIT (HCT) 41.3 36.0 - 48.0 % MEAN CELL VOLUME 81.4 80.0 - 100.0 FL Mean Cell HGB 27.2 26.0 - 35.0 PG MEAN CELL HGB CONCENTRATION 33.5 27.0 - 37.0 G/DL RBC DISTRIBUTION 14.6 (H) 11.5 - 14.5 % PLATELET COUNT 327 130.0 - 400.0 10*3/uL MEAN PLATELET VOLUME 8.0 7.4 - 11.0 FL Radiographic Imaging XR ANKLE RIGHT 3+ VIEWS Final Result IMPRESSION: No acute osseous abnormality of the right ankle. Moderate Sedation Procedure: No Procedures: Procedures ED Summary: Images showed no fracture. Patient be placed in Tanisha wrap and crutches and ibuprofen for pain. Patient has been advised possible occult fracture and the need for follow-up in 10 days if symptoms do not improve. Patient's ice area and rest. Patient can return for change in symptoms, or symptoms, any other issues. Clinical Impression: 1. Sprain of right ankle, unspecified ligament, initial encounter No follow-ups on file. New Prescriptions IBUPROFEN 600 MG TABLET Take 1 tablet by mouth every 6 hours as needed for Mild Pain. Discontinued Medications NAPROXEN 500 MG TABLET Take 1 Unspecified by mouth Every 12 hours as needed. An After Visit Summary was printed and given to the patient with above information. . . Apolinar Elizondo MD 02/09/22 0933 documented in this encounter [facility] 02-03-2022 Note Patient Outreach (IN [facility]) JOHN DOMINGUEZ ([id number]) 1975 F Date Time Provider Department 02/03/22 CHERYL SIMPSON During your visit today, we recorded the following information about you: Allergies As of Date: 02/03/2022 Noted Allergy Reaction IODINE 11/03/2018 4 - Hives 9 - Itching Comments: Pt developed hives and itching on neck, back and shoulder after injection of contrast for CT scan. SULFA (SULFONAMIDE ANTIBIOTICS) 05/17/2005 4 - Hives BEE STING 02/18/2009 7 - Swelling Comments: Throat swells BLACK PEPPER 09/29/2015 7 - Swelling Comments: Seasoning AND spices OMNIPAQUE (IOHEXOL) 11/06/2018 4 - Hives 9 - Itching ORANGE JUICE 02/07/2014 7 - Swelling Date Reviewed: 08/28/2020 Reviewed by: Yvette Noguera LPN - Fully Assessed Visit Diagnosis:Encounter for screening mammogram for breast cancer [Z12.31] Order(s):[facility] SCREENING [[id number]] Order #: [id number] FUTURE Prescriptions as of 02/08/2022 - cyclobenzaprine (FLEXERIL) 10 mg tablet Take 1 tablet by mouth three times daily as needed for Muscle Spasm or Pain. - naproxen (NAPROSYN) 500 mg tablet Take 1 tablet by mouth twice daily as needed for Pain (for pain/inflammation). Take with food. - omeprazole (PRILOSEC) 40 mg capsule Take 1 capsule by mouth once daily. - dicyclomine (BENTYL) 20 mg tablet Take 1 tablet by mouth three times daily. - acetaminophen (TYLENOL) 325 mg cap Take by mouth. - Multivitamins chew Take by mouth. Problem List As Of Date 02/03/2022 Noted Resolved Mild intermittent asthma without complication [*06/16/2006 Irregular menstrual cycle [N92.6] 06/16/2006 11/03/2010 Depression [F32.A] 06/16/2006 Sciatica [M54.30] GENERALIZED ANXIETY DIS [F41.1] PANIC DISORDER WITHOUT AGORAPHOBIA [F41.0] 09/06/2007 Migraine without aura [G43.009] 10/13/2007 Scanty or infrequent menstruation [N91.5] 09/13/2008 04/12/2012 Other and unspecified hyperlipidemia [E78.5] 10/15/2008 PCOS (polycystic ovarian syndrome) [E28.2] 11/19/2010 Ovarian cystic mass [N83.209] 12/28/2010 01/05/2012 Hallux valgus (acquired) [M20.10] 04/21/2011 Calcaneal spur [M77.30] 04/26/2011 Fibromyalgia [M79.7] 05/19/2011 Rheumatoid arthritis (HCC) [M06.9] 05/19/2011 Abnormality of gait [R26.9] 06/08/2011 01/10/2014 Edema [R60.9] 09/08/2011 Multinodular goiter [E04.2] 11/11/2011 RLQ abdominal pain [R10.31] 01/05/2012 04/12/2012 Dyspareunia [DWJ1945] 03/10/2012 04/12/2012 Insomnia [G47.00] 01/10/2014 GERD (gastroesophageal reflux disease) [K21.9] BMI 45.0-49.9, adult (HCC) [Z68.42] 01/11/2014 Elevated WBCs [D72.829] 01/22/2014 Hypermetropia - Both Eyes [H52.00] 04/01/2014 Regular astigmatism - Both Eyes [H52.229] 04/01/2014 Presbyopia - Both Eyes [H52.4] 04/01/2014 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 Advised Dr Rodriguez is leaving. She would like to transfer to Dr Dent. [employer] [place] 12-31-2021 History of Present illness Narrative SLEEP Gladwin Score - 3 CPAP/BIPAP/APAP Pressure - n/a Neck Circumference - 16 1/2 Most Recent Sleep Study - n/a Oxygen Use - no Referred by- Rosa Coe Work Schedule- director multimedia Symptoms include : Snoring/snorting - YES Insomnia- NO Waking with gasping/shortness of breath - NO Difficulty concentrate- - NO Waking with headache- NO Significant weight change- NO Daytime Sleepiness- NO Restless legs - NO Pain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 and depression Dysthymic disorder Screening for viral disease Special screening examination for unspecified viral disease [facility]* Diagnosis Sleep apnea, unspecified type- Primary Snoring Other dyspnea and respiratory abnormality Overweight Fatigue, unspecified type Morning headache Headache Bruxism Other specified psychophysiological malfunction Night terrors Sleep arousal disorder GERD (gastroesophageal reflux disease) Esophageal reflux documented in this encounter [facility] note* Diagnosis Binge-eating disorder, mild- Primary Recurrent major depressive disorder, in full remission GERD (gastroesophageal reflux disease) Esophageal reflux [facility]* Diagnosis Encounter for screening mammogram for breast cancer documented in this encounter [facility] note* Diagnosis Sprain of right ankle, unspecified ligament, initial encounter- Primary documented [facility]* Diagnosis Sprain of right ankle, unspecified ligament, subsequent encounter- Primary [facility]* Diagnosis Nutritional counseling- Primary Morbid obesity with body mass index of 50 or higher [facility] Diagnosis Morbid obesity with body mass index of 50 or higher- Primary Gastroesophageal reflux disease, unspecified whether esophagitis present [facility]* Diagnosis Gastroesophageal reflux disease, unspecified whether esophagitis present- Primary Morbid obesity with body mass index of 50 or higher documented [facility]* Diagnosis Nutritional counseling- Primary Morbid obesity with body mass index of 50 or higher [facility] Diagnosis Pain of right lower extremity- Primary [facility]* Diagnosis Binge-eating disorder, in full remission, mild- Primary Recurrent major depressive disorder, in full remission [facility] Diagnosis Acute otitis media, unspecified otitis media type- Primary Sore throat Acute pharyngitis [facility]* Diagnosis Blood per rectum- Primary Hemorrhage of rectum and anus Lower abdominal pain Abdominal pain, other specified site History of hematuria Personal history of other disorder of urinary system Hypertension, unspecified type [facility]* Diagnosis Nutritional counseling- Primary Morbid obesity with body mass index of 50 or higher [facility]* Diagnosis Nutritional counseling- Primary Type 2 diabetes mellitus without complication, without long-term current use of insulin documented [facility]* Diagnosis Nutritional counseling- Primary Morbid obesity with body mass index of 50 or higher [facility]* Diagnosis Thyroid nodule- Primary Nontoxic uninodular goiter [facility] Diagnosis Fibromyalgia- Primary Unspecified myalgia and myositis Anxiety Anxiety state, unspecified Hematuria, unspecified type Thyroid nodule Nontoxic uninodular goiter documented in this encounter [facility] Work Phone: Evaluation note* Diagnosis Encounter for screening mammogram for breast cancer- Primary Fibromyalgia Unspecified myalgia and myositis Anxiety Anxiety state, unspecified Encounter for screening for malignant neoplasm of colon Hematuria, unspecified type Plantar wart documented in this encounter [facility] Work Phone: History of Present illness Narrative* Tylenol, naproxen, Flexeril is helping. Flexeril makes her tired * Stool is red with clots x7yrs * Usually loose * no heartburn, n/v * [facility] E[facility] 205 DO Work Phone: History of Present illness Narrative* Patient presents today for follow up. Has not yet done repeat labs. * Regarding fibromyalgia, states that symptoms have been exacerbated recently and attributes to changes in the weather. Pain has been keeping her from doing things that she enjoys doing. Has tried Tylenol, Naproxen, Flexeril which does provide some relief. Flexeril makes her tired. She is open to additional medication trial. * Regarding hematochezia, states that she has had BRBPR with clots within stool x7yrs. Happening almost daily with stools that are usually loose. Has some associated intermittent L-sided abd cramping, but denies melena, heartburn, n/v, fever, chills. Did have what sounds like EGD/colonoscopy in [place] within the past 1-2 years and states that she was told that everything was normal, but symptoms have been persistent. [facility] Work Phone: History of Present illness Narrative* Scared to get COVID * work is going well, [employer], likes it, going to [place], coming * anx/dep under control [facility] 205 DO Work Phone: History of Present illness Narrative* The patient's health since the last visit is described as good. There are no interval changes in the patient's PMH, PSH, and current medications. There are no interval changes in the patient's socialand family history. She has regular dental visits. (needs unspecified procedure, but not yet scheduled due to financial strain) . She complains of vision problems (due for check). The patient complains of worsening vision. She denies hearing loss. Immunizations status: not up to date. * Lifestyle: She does not exercise regularly. She does not use tobacco. She denies alcohol use. * Reproductive health: the patient is perimenopausal. s/p hyst, now with occasional hot flashes. * History: 4 and 4 full term. * Breast cancer screening: cancer screening reviewed and updated. * Colorectal Cancer Screening:. about 1yr ago, wnl per pt report. * Patient presents today for annual physical. She is looking for a new job due to standing for 12+hrsa day at current job. * Regarding fibromyalgia, states that her diffuse pain is worse with new job due to prolonged standing at [employer]. Is also having some intermittent burning in the LEs bl, L>R. Denies numbness,tingling, LE weakness, saddle anesthesia, urinary retention, bowel/bladder incontinence. Gabapentindoes seem to help. * Regarding BMI, states that she has tried many different diets and supplements without weight loss success. Is interested in discussing options with bariatric team. * Cervical Cancer Screening: s/p hyst * Breast Cancer Screening: due * Osteoporosis Screening: plan to start at age 67 * Colon Cancer Screening: colonoscopy wnl 1yr ago per pt report * Tobacco: denies * Alcohol: denies * Recreational Drugs: denies * Immunizations: declines influenza, declines covid, due for TDaP [facility] 205 DO Work Phone: Hospital Discharge instructions* Attachments The following attachments cannot be sent through Care Everywhere. * Ankle Sprain (Malaysian) [facility] Attachments The following attachments cannot be sent through Care Everywhere. * Sore Throat (Malaysian) * Otitis Media (Malaysian) [facility] (narrative)* Diagnostic Procedure Only (Routine) - Pending Review Specialty Diagnoses / Procedures Referred By Wyatt de la vega Referred To Contact BR IMAGING Diagnoses Encounter for screening mammogram for breast cancer Procedures RACHELL SCREENING SCREENING MAMMOGRAPHY BI 2-VIEW BREAST INC CAD Cheryl Simpson MD [address] [place] [address] [facility] [address] [place] [address] Referral ID Status Reason Start Date Expiration Date Visits Requested Visits Authorized [id number] Pending Review Auto-Generat ed Referral 02/03/2022 03/05/2023 1 1 [facility] for referral (narrative)* Consultation (Routine) - New Request Specialty Diagnoses / Procedures Referred By Wyatt de la vega Referred To Contact Diagnoses Sprain of right ankle, unspecified ligament, initial encounter Apolinar Elizondo MD [address] [place] [address] Jake Quinn DO [address] [place] [address] Referral ID Status Reason Start Date Expiration Date V isits Requested Visits Authorized [id number] New Request 02/09/2022 03/06/2023 1 1 [facility] Consultation (Urgent) - New Request Specialty Diagnoses / Procedures Referred By Wyatt de la vega Referred To Contact Orthopaedics Diagnoses Pain of right lower extremity Santo Davenport I [employer] PROJECT MANAGER-HANDBAG FRAMES INSPECTOR [address] [facility] [address] [place] [address] David Silva MD [address] [facility] [place] [address] Referral ID Status Reason Start Date Expiration Date V isits Requested Visits Authorized [id number] New Request 03/24/2022 04/18/2023 1 1 Electronically signed by Santo Davenport TELECOMMUNICATIONS PROJECT MANAGER-HANDBAG FRAMES INSPECTOR at 03/24/2022 4:10 PM EDT [facility] Consultation (Routine) - Authorized Specialty Diagnoses / Procedures Referred By Wyatt de la vega Referred To Contact Primary Care Diagnoses Fibromyalgia Anxiety Procedures Follow Up In Primary Care Santo Castillo DO [address] [place] [address] Referral ID Status Reason Start Date Expiration Date V isits Requested Visits Authorized [id number] Authorized 12/14/2022 06/12/2023 1 1 [facility] Work Phone: Reason for referral (narrative)* Consultation (Routine) - Authorized Specialty Diagnoses / Procedures Referred By Wyatt de la vega Referred To Contact Primary Care Diagnoses Fibromyalgia Anxiety Encounter for screening mammogram for breast cancer Encounter for screening for malignant neoplasm of colon Procedures Follow Up In Primary Care - Established Santo Castillo DO [address] [place] [address] Referral ID Status Reason Start Date Expiration Date V isits Requested Visits Authorized [id number] Authorized 04/19/2023 10/16/2023 1 1 * Consultation (Routine) - Authorized Specialty Diagnoses / Procedures Referred By Contac t Referred To Contact Gastroenterology Diagnoses Encounter for screening for malignant neoplasm of colon Procedures ID OFFICE/OUTPATIENT NEW HIGH MDM 60-74 MINUTES Santo Castillo DO [address] [place] [id number] Referral ID Status Reason Start Date Expiration Date Visits Requested Visits Authorized [id number] Authorized Specialty Services Required 04/19/2023 10/16/2023 1 1 * Imaging (Routine) - Authorized Specialty Diagnoses / Procedures Referred By Contac t Referred To Contact Radiology Diagnoses Encounter for screening mammogram for breast cancer Procedures BI mammo bilateral screening tomosynthesis Santo Castillo DO [address] [address] Referral ID Status Reason Start Date Expiration Date Visits Requested Visits Authorized [id number] Authorized Perform Procedure 04/19/2023 10/16/2023 1 1 [facility] Work Phone: Reason for visit Narrative* Consultation (Routine) - Authorized Specialty Diagnoses / Procedures Referred By Contac t Referred To Contact Primary Care Diagnoses Fibromyalgia Anxiety Procedures Follow Up In Primary Care Santo Castillo DO [address] [address] Referral ID Status Reason Start Date Expiration Date V isits Requested Visits Authorized [id number] Authorized 12/14/2022 06/12/2023 1 1 [facility] Work Phone: Summary Purpose Family History No Family History Records FoundUnknown Family Member Name Dates Details Family history of hypertensi on: Mother(V17.49, Z82.49) Status:Active Family history of malignant neoplasm: Grandparent(V16.9, Z80.9) Status:Active Family history of cardiac di sorder: Grandparent(V17.49, Z82.49) Status:Active Family history of diabetes m ellitus: Grandparent, Maternal Grandfather(V18.0, Z83.3) Status:Active Family history of cerebrovas cular accident (CVA): Grandparent, Sister(V17.1, Z82.3) Status:Active Family history of malignant neoplasm of breast: Grandparent, Paternal Grandmother(V16.3, Z80.3) Status:Active Family history of malignant neoplasm of colon: Maternal Grandmother(V16.0, Z80.0) Status:Active Family history of arthritis: Maternal Grandfather(V17.7, Z82.61) Status:Active Unknown Family Member Name Dates Details Family history of hypertensi on: Mother(V17.49, Z82.49) Status:Active Family history of malignant neoplasm: Grandparent(V16.9, Z80.9) Status:Active Family history of cardiac di sorder: Grandparent(V17.49, Z82.49) Status:Active Family history of diabetes m ellitus: Grandparent, Maternal Grandfather(V18.0, Z83.3) Status:Active Family history of cerebrovas cular accident (CVA): Grandparent, Sister(V17.1, Z82.3) Status:Active Family history of malignant neoplasm of breast: Grandparent, Paternal Grandmother(V16.3, Z80.3) Status:Active Family history of malignant neoplasm of colon: Maternal Grandmother(V16.0, Z80.0) Status:Active Family history of arthritis: Maternal Grandfather(V17.7, Z82.61) Status:Active Unknown Family Member Name Dates Details Family history of hypertensi on: Mother(V17.49, Z82.49) Status:Active Family history of malignant neoplasm: Grandparent(V16.9, Z80.9) Status:Active Family history of cardiac di sorder: Grandparent(V17.49, Z82.49) Status:Active Family history of diabetes m ellitus: Grandparent, Maternal Grandfather(V18.0, Z83.3) Status:Active Family history of cerebrovas cular accident (CVA): Grandparent, Sister(V17.1, Z82.3) Status:Active Family history of malignant neoplasm of breast: Grandparent, Paternal Grandmother(V16.3, Z80.3) Status:Active Family history of malignant neoplasm of colon: Maternal Grandmother(V16.0, Z80.0) Status:Active Family history of arthritis: Maternal Grandfather(V17.7, Z82.61) Status:Active Unknown Family Member Name Dates Details Family history of hypertensi on: Mother(V17.49, Z82.49) Status:Active Family history of malignant neoplasm: Grandparent(V16.9, Z80.9) Status:Active Family history of cardiac di sorder: Grandparent(V17.49, Z82.49) Status:Active Family history of diabetes m ellitus: Grandparent, Maternal Grandfather(V18.0, Z83.3) Status:Active Family history of cerebrovas cular accident (CVA): Grandparent, Sister(V17.1, Z82.3) Status:Active Family history of malignant neoplasm of breast: Grandparent, Paternal Grandmother(V16.3, Z80.3) Status:Active Family history of malignant neoplasm of colon: Maternal Grandmother(V16.0, Z80.0) Status:Active Family history of arthritis: Maternal Grandfather(V17.7, Z82.61) Status:Active Unknown Family Member Name Dates Details Family history of hypertensi on: Mother(V17.49, Z82.49) Status:Active Family history of malignant neoplasm: Grandparent(V16.9, Z80.9) Status:Active Family history of cardiac di sorder: Grandparent(V17.49, Z82.49) Status:Active Family history of diabetes m ellitus: Grandparent, Maternal Grandfather(V18.0, Z83.3) Status:Active Family history of cerebrovas cular accident (CVA): Grandparent, Sister(V17.1, Z82.3) Status:Active Family history of malignant neoplasm of breast: Grandparent, Paternal Grandmother(V16.3, Z80.3) Status:Active Family history of malignant neoplasm of colon: Maternal Grandmother(V16.0, Z80.0) Status:Active Family history of arthritis: Maternal Grandfather(V17.7, Z82.61) Status:Active Unknown Family Member Name Dates Details Family history of hypertensi on: Mother(V17.49, Z82.49) Status:Active Family history of malignant neoplasm: Grandparent(V16.9, Z80.9) Status:Active Family history of cardiac di sorder: Grandparent(V17.49, Z82.49) Status:Active Family history of diabetes m ellitus: Grandparent, Maternal Grandfather(V18.0, Z83.3) Status:Active Family history of cerebrovas cular accident (CVA): Grandparent, Sister(V17.1, Z82.3) Status:Active Family history of malignant neoplasm of breast: Grandparent, Paternal Grandmother(V16.3, Z80.3) Status:Active Family history of malignant neoplasm of colon: Maternal Grandmother(V16.0, Z80.0) Status:Active Family history of arthritis: Maternal Grandfather(V17.7, Z82.61) Status:Active Unknown Family Member Name Dates Details Family history of hypertensi on: Mother(V17.49, Z82.49) Status:Active Family history of malignant neoplasm: Grandparent(V16.9, Z80.9) Status:Active Family history of cardiac di sorder: Grandparent(V17.49, Z82.49) Status:Active Family history of diabetes m ellitus: Grandparent, Maternal Grandfather(V18.0, Z83.3) Status:Active Family history of cerebrovas cular accident (CVA): Grandparent, Sister(V17.1, Z82.3) Status:Active Family history of malignant neoplasm of breast: Grandparent, Paternal Grandmother(V16.3, Z80.3) Status:Active Family history of malignant neoplasm of colon: Maternal Grandmother(V16.0, Z80.0) Status:Active Family history of arthritis: Maternal Grandfather(V17.7, Z82.61) Status:Active Unknown Family Member Name Dates Details Family history of hypertensi on: Mother(V17.49, Z82.49) Status:Active Family history of malignant neoplasm: Grandparent(V16.9, Z80.9) Status:Active Family history of cardiac di sorder: Grandparent(V17.49, Z82.49) Status:Active Family history of diabetes m ellitus: Grandparent, Maternal Grandfather(V18.0, Z83.3) Status:Active Family history of cerebrovas cular accident (CVA): Grandparent, Sister(V17.1, Z82.3) Status:Active Family history of malignant neoplasm of breast: Grandparent, Paternal Grandmother(V16.3, Z80.3) Status:Active Family history of malignant neoplasm of colon: Maternal Grandmother(V16.0, Z80.0) Status:Active Family history of arthritis: Maternal Grandfather(V17.7, Z82.61) Status:Active Unknown Family Member Name Dates Details Family history of hypertensi on: Mother(V17.49, Z82.49) Status:Active Family history of malignant neoplasm: Grandparent(V16.9, Z80.9) Status:Active Family history of cardiac di sorder: Grandparent(V17.49, Z82.49) Status:Active Family history of diabetes m ellitus: Grandparent, Maternal Grandfather(V18.0, Z83.3) Status:Active Family history of cerebrovas cular accident (CVA): Grandparent, Sister(V17.1, Z82.3) Status:Active Family history of malignant neoplasm of breast: Grandparent, Paternal Grandmother(V16.3, Z80.3) Status:Active Family history of malignant neoplasm of colon: Maternal Grandmother(V16.0, Z80.0) Status:Active Family history of arthritis: Maternal Grandfather(V17.7, Z82.61) Status:Active Unknown Family Member Name Dates Details Family history of hypertensi on: Mother(V17.49, Z82.49) Status:Active Family history of malignant neoplasm: Grandparent(V16.9, Z80.9) Status:Active Family history of cardiac di sorder: Grandparent(V17.49, Z82.49) Status:Active Family history of diabetes m ellitus: Grandparent, Maternal Grandfather(V18.0, Z83.3) Status:Active Family history of cerebrovas cular accident (CVA): Grandparent, Sister(V17.1, Z82.3) Status:Active Family history of malignant neoplasm of breast: Grandparent, Paternal Grandmother(V16.3, Z80.3) Status:Active Family history of malignant neoplasm of colon: Maternal Grandmother(V16.0, Z80.0) Status:Active Family history of arthritis: Maternal Grandfather(V17.7, Z82.61) Status:Active Unknown Family Member Name Dates Details Family history of arthritis: Maternal Grandfather(V17.7, Z82.61) Status:Active Family history of malignant neoplasm of colon: Maternal Grandmother(V16.0, Z80.0) Status:Active Family history of malignant neoplasm of breast: Grandparent, Paternal Grandmother(V16.3, Z80.3) Status:Active Family history of cerebrovas cular accident (CVA): Grandparent, Sister(V17.1, Z82.3) Status:Active Family history of diabetes m ellitus: Grandparent, Maternal Grandfather(V18.0, Z83.3) Status:Active Family history of cardiac di sorder: Grandparent(V17.49, Z82.49) Status:Active Family history of malignant neoplasm: Grandparent(V16.9, Z80.9) Status:Active Family history of hypertensi on: Mother(V17.49, Z82.49) Status:Active Unknown Family Member Name Dates Details Family history of arthritis: Maternal Grandfather(V17.7, Z82.61) Status:Active Family history of malignant neoplasm of colon: Maternal Grandmother(V16.0, Z80.0) Status:Active Family history of malignant neoplasm of breast: Grandparent, Paternal Grandmother(V16.3, Z80.3) Status:Active Family history of cerebrovas cular accident (CVA): Grandparent, Sister(V17.1, Z82.3) Status:Active Family history of diabetes m ellitus: Grandparent, Maternal Grandfather(V18.0, Z83.3) Status:Active Family history of cardiac di sorder: Grandparent(V17.49, Z82.49) Status:Active Family history of malignant neoplasm: Grandparent(V16.9, Z80.9) Status:Active Family history of hypertensi on: Mother(V17.49, Z82.49) Status:Active Unknown Family Member Name Dates Details Family history of hypertensi on: Mother(V17.49, Z82.49) Status:Active Family history of malignant neoplasm: Grandparent(V16.9, Z80.9) Status:Active Family history of cardiac di sorder: Grandparent(V17.49, Z82.49) Status:Active Family history of diabetes m ellitus: Grandparent, Maternal Grandfather(V18.0, Z83.3) Status:Active Family history of cerebrovas cular accident (CVA): Grandparent, Sister(V17.1, Z82.3) Status:Active Family history of malignant neoplasm of breast: Grandparent, Paternal Grandmother(V16.3, Z80.3) Status:Active Family history of malignant neoplasm of colon: Maternal Grandmother(V16.0, Z80.0) Status:Active Family history of arthritis: Maternal Grandfather(V17.7, Z82.61) Status:Active Unknown Family Member Name Dates Details Family history of hypertensi on: Mother(V17.49, Z82.49) Status:Active Family history of malignant neoplasm: Grandparent(V16.9, Z80.9) Status:Active Family history of cardiac di sorder: Grandparent(V17.49, Z82.49) Status:Active Family history of diabetes m ellitus: Grandparent, Maternal Grandfather(V18.0, Z83.3) Status:Active Family history of cerebrovas cular accident (CVA): Grandparent, Sister(V17.1, Z82.3) Status:Active Family history of malignant neoplasm of breast: Grandparent, Paternal Grandmother(V16.3, Z80.3) Status:Active Family history of malignant neoplasm of colon: Maternal Grandmother(V16.0, Z80.0) Status:Active Family history of arthritis: Maternal Grandfather(V17.7, Z82.61) Status:Active Unknown Family Member Name Dates Details Family history of hypertensi on: Mother(V17.49, Z82.49) Status:Active Family history of malignant neoplasm: Grandparent(V16.9, Z80.9) Status:Active Family history of cardiac di sorder: Grandparent(V17.49, Z82.49) Status:Active Family history of diabetes m ellitus: Grandparent, Maternal Grandfather(V18.0, Z83.3) Status:Active Family history of cerebrovas cular accident (CVA): Grandparent, Sister(V17.1, Z82.3) Status:Active Family history of malignant neoplasm of breast: Grandparent, Paternal Grandmother(V16.3, Z80.3) Status:Active Family history of malignant neoplasm of colon: Maternal Grandmother(V16.0, Z80.0) Status:Active Family history of arthritis: Maternal Grandfather(V17.7, Z82.61) Status:Active Unknown Family Member Name Dates Details Family history of hypertensi on: Mother(V17.49, Z82.49) Status:Active Family history of malignant neoplasm: Grandparent(V16.9, Z80.9) Status:Active Family history of cardiac di sorder: Grandparent(V17.49, Z82.49) Status:Active Family history of diabetes m ellitus: Grandparent, Maternal Grandfather(V18.0, Z83.3) Status:Active Family history of cerebrovas cular accident (CVA): Grandparent, Sister(V17.1, Z82.3) Status:Active Family history of malignant neoplasm of breast: Grandparent, Paternal Grandmother(V16.3, Z80.3) Status:Active Family history of malignant neoplasm of colon: Maternal Grandmother(V16.0, Z80.0) Status:Active Family history of arthritis: Maternal Grandfather(V17.7, Z82.61) Status:Active Unknown Family Member Name Dates Details Family history of hypertensi on: Mother(V17.49, Z82.49) Status:Active Family history of malignant neoplasm: Grandparent(V16.9, Z80.9) Status:Active Family history of cardiac di sorder: Grandparent(V17.49, Z82.49) Status:Active Family history of diabetes m ellitus: Grandparent, Maternal Grandfather(V18.0, Z83.3) Status:Active Family history of cerebrovas cular accident (CVA): Grandparent, Sister(V17.1, Z82.3) Status:Active Family history of malignant neoplasm of breast: Grandparent, Paternal Grandmother(V16.3, Z80.3) Status:Active Family history of malignant neoplasm of colon: Maternal Grandmother(V16.0, Z80.0) Status:Active Family history of arthritis: Maternal Grandfather(V17.7, Z82.61) Status:Active Unknown Family Member Name Dates Details Family history of hypertensi on: Mother(V17.49, Z82.49) Status:Active Family history of malignant neoplasm: Grandparent(V16.9, Z80.9) Status:Active Family history of cardiac di sorder: Grandparent(V17.49, Z82.49) Status:Active Family history of diabetes m ellitus: Grandparent, Maternal Grandfather(V18.0, Z83.3) Status:Active Family history of cerebrovas cular accident (CVA): Grandparent, Sister(V17.1, Z82.3) Status:Active Family history of malignant neoplasm of breast: Grandparent, Paternal Grandmother(V16.3, Z80.3) Status:Active Family history of malignant neoplasm of colon: Maternal Grandmother(V16.0, Z80.0) Status:Active Family history of arthritis: Maternal Grandfather(V17.7, Z82.61) Status:Active Unknown Family Member Name Dates Details Family history of hypertensi on: Mother(V17.49, Z82.49) Status:Active Family history of malignant neoplasm: Grandparent(V16.9, Z80.9) Status:Active Family history of cardiac di sorder: Grandparent(V17.49, Z82.49) Status:Active Family history of diabetes m ellitus: Grandparent, Maternal Grandfather(V18.0, Z83.3) Status:Active Family history of cerebrovas cular accident (CVA): Grandparent, Sister(V17.1, Z82.3) Status:Active Family history of malignant neoplasm of breast: Grandparent, Paternal Grandmother(V16.3, Z80.3) Status:Active Family history of malignant neoplasm of colon: Maternal Grandmother(V16.0, Z80.0) Status:Active Family history of arthritis: Maternal Grandfather(V17.7, Z82.61) Status:Active Unknown Family Member Name Dates Details Family history of hypertensi on: Mother(V17.49, Z82.49) Status:Active Family history of malignant neoplasm: Grandparent(V16.9, Z80.9) Status:Active Family history of cardiac di sorder: Grandparent(V17.49, Z82.49) Status:Active Family history of diabetes m ellitus: Grandparent, Maternal Grandfather(V18.0, Z83.3) Status:Active Family history of cerebrovas cular accident (CVA): Grandparent, Sister(V17.1, Z82.3) Status:Active Family history of malignant neoplasm of breast: Grandparent, Paternal Grandmother(V16.3, Z80.3) Status:Active Family history of malignant neoplasm of colon: Maternal Grandmother(V16.0, Z80.0) Status:Active Family history of arthritis: Maternal Grandfather(V17.7, Z82.61) Status:Active Unknown Family Member Name Dates Details Family history of hypertensi on: Mother(V17.49, Z82.49) Status:Active Family history of malignant neoplasm: Grandparent(V16.9, Z80.9) Status:Active Family history of cardiac di sorder: Grandparent(V17.49, Z82.49) Status:Active Family history of diabetes m ellitus: Grandparent, Maternal Grandfather(V18.0, Z83.3) Status:Active Family history of cerebrovas cular accident (CVA): Grandparent, Sister(V17.1, Z82.3) Status:Active Family history of malignant neoplasm of breast: Grandparent, Paternal Grandmother(V16.3, Z80.3) Status:Active Family history of malignant neoplasm of colon: Maternal Grandmother(V16.0, Z80.0) Status:Active Family history of arthritis: Maternal Grandfather(V17.7, Z82.61) Status:Active Unknown Family Member Name Dates Details Family history of hypertensi on: Mother(V17.49, Z82.49) Status:Active Family history of malignant neoplasm: Grandparent(V16.9, Z80.9) Status:Active Family history of cardiac di sorder: Grandparent(V17.49, Z82.49) Status:Active Family history of diabetes m ellitus: Grandparent, Maternal Grandfather(V18.0, Z83.3) Status:Active Family history of cerebrovas cular accident (CVA): Grandparent, Sister(V17.1, Z82.3) Status:Active Family history of malignant neoplasm of breast: Grandparent, Paternal Grandmother(V16.3, Z80.3) Status:Active Family history of malignant neoplasm of colon: Maternal Grandmother(V16.0, Z80.0) Status:Active Family history of arthritis: Maternal Grandfather(V17.7, Z82.61) Status:Active Unknown Family Member Name Dates Details Family history of hypertensi on: Mother(V17.49, Z82.49) Status:Active Family history of malignant neoplasm: Grandparent(V16.9, Z80.9) Status:Active Family history of cardiac di sorder: Grandparent(V17.49, Z82.49) Status:Active Family history of diabetes m ellitus: Grandparent, Maternal Grandfather(V18.0, Z83.3) Status:Active Family history of cerebrovas cular accident (CVA): Grandparent, Sister(V17.1, Z82.3) Status:Active Family history of malignant neoplasm of breast: Grandparent, Paternal Grandmother(V16.3, Z80.3) Status:Active Family history of arthritis: Maternal Grandfather(V17.7, Z82.61) Status:Active Family history of malignant neoplasm of colon: Maternal Grandmother(V16.0, Z80.0) Status:Active Unknown Family Member Name Dates Details Family history of hypertensi on: Mother(V17.49, Z82.49) Status:Active Family history of malignant neoplasm: Grandparent(V16.9, Z80.9) Status:Active Family history of cardiac di sorder: Grandparent(V17.49, Z82.49) Status:Active Family history of diabetes m ellitus: Grandparent, Maternal Grandfather(V18.0, Z83.3) Status:Active Family history of cerebrovas cular accident (CVA): Grandparent, Sister(V17.1, Z82.3) Status:Active Family history of malignant neoplasm of breast: Grandparent, Paternal Grandmother(V16.3, Z80.3) Status:Active Family history of malignant neoplasm of colon: Maternal Grandmother(V16.0, Z80.0) Status:Active Family history of arthritis: Maternal Grandfather(V17.7, Z82.61) Status:Active Unknown Family Member Name Dates Details Family history of hypertensi on: Mother(V17.49, Z82.49) Status:Active Family history of malignant neoplasm: Grandparent(V16.9, Z80.9) Status:Active Family history of cardiac di sorder: Grandparent(V17.49, Z82.49) Status:Active Family history of diabetes m ellitus: Grandparent, Maternal Grandfather(V18.0, Z83.3) Status:Active Family history of cerebrovas cular accident (CVA): Grandparent, Sister(V17.1, Z82.3) Status:Active Family history of malignant neoplasm of breast: Grandparent, Paternal Grandmother(V16.3, Z80.3) Status:Active Family history of malignant neoplasm of colon: Maternal Grandmother(V16.0, Z80.0) Status:Active Family history of arthritis: Maternal Grandfather(V17.7, Z82.61) Status:Active Unknown Family Member Name Dates Details Family history of hypertensi on: Mother(V17.49, Z82.49) Status:Active Family history of malignant neoplasm: Grandparent(V16.9, Z80.9) Status:Active Family history of cardiac di sorder: Grandparent(V17.49, Z82.49) Status:Active Family history of diabetes m ellitus: Grandparent, Maternal Grandfather(V18.0, Z83.3) Status:Active Family history of cerebrovas cular accident (CVA): Grandparent, Sister(V17.1, Z82.3) Status:Active Family history of malignant neoplasm of breast: Grandparent, Paternal Grandmother(V16.3, Z80.3) Status:Active Family history of malignant neoplasm of colon: Maternal Grandmother(V16.0, Z80.0) Status:Active Family history of arthritis: Maternal Grandfather(V17.7, Z82.61) Status:Active Unknown Family Member Name Dates Details Family history of hypertensi on: Mother(V17.49, Z82.49) Status:Active Family history of malignant neoplasm: Grandparent(V16.9, Z80.9) Status:Active Family history of cardiac di sorder: Grandparent(V17.49, Z82.49) Status:Active Family history of diabetes m ellitus: Grandparent, Maternal Grandfather(V18.0, Z83.3) Status:Active Family history of cerebrovas cular accident (CVA): Grandparent, Sister(V17.1, Z82.3) Status:Active Family history of malignant neoplasm of breast: Grandparent, Paternal Grandmother(V16.3, Z80.3) Status:Active Family history of malignant neoplasm of colon: Maternal Grandmother(V16.0, Z80.0) Status:Active Family history of arthritis: Maternal Grandfather(V17.7, Z82.61) Status:Active Unknown Family Member Name Dates Details Family history of hypertensi on: Mother(V17.49, Z82.49) Status:Active Family history of malignant neoplasm: Grandparent(V16.9, Z80.9) Status:Active Family history of cardiac di sorder: Grandparent(V17.49, Z82.49) Status:Active Family history of diabetes m ellitus: Grandparent, Maternal Grandfather(V18.0, Z83.3) Status:Active Family history of cerebrovas cular accident (CVA): Grandparent, Sister(V17.1, Z82.3) Status:Active Family history of malignant neoplasm of breast: Grandparent, Paternal Grandmother(V16.3, Z80.3) Status:Active Family history of malignant neoplasm of colon: Maternal Grandmother(V16.0, Z80.0) Status:Active Family history of arthritis: Maternal Grandfather(V17.7, Z82.61) Status:Active Unknown Family Member Name Dates Details Family history of hypertensi on: Mother(V17.49, Z82.49) Status:Active Family history of malignant neoplasm: Grandparent(V16.9, Z80.9) Status:Active Family history of cardiac di sorder: Grandparent(V17.49, Z82.49) Status:Active Family history of diabetes m ellitus: Grandparent, Maternal Grandfather(V18.0, Z83.3) Status:Active Family history of cerebrovas cular accident (CVA): Grandparent, Sister(V17.1, Z82.3) Status:Active Family history of malignant neoplasm of breast: Grandparent, Paternal Grandmother(V16.3, Z80.3) Status:Active Family history of malignant neoplasm of colon: Maternal Grandmother(V16.0, Z80.0) Status:Active Family history of arthritis: Maternal Grandfather(V17.7, Z82.61) Status:Active Unknown Family Member Name Dates Details Family history of hypertensi on: Mother(V17.49, Z82.49) Status:Active Family history of malignant neoplasm: Grandparent(V16.9, Z80.9) Status:Active Family history of cardiac di sorder: Grandparent(V17.49, Z82.49) Status:Active Family history of diabetes m ellitus: Grandparent, Maternal Grandfather(V18.0, Z83.3) Status:Active Family history of cerebrovas cular accident (CVA): Grandparent, Sister(V17.1, Z82.3) Status:Active Family history of malignant neoplasm of breast: Grandparent, Paternal Grandmother(V16.3, Z80.3) Status:Active Family history of malignant neoplasm of colon: Maternal Grandmother(V16.0, Z80.0) Status:Active Family history of arthritis: Maternal Grandfather(V17.7, Z82.61) Status:Active Unknown Family Member Name Dates Details Family history of hypertensi on: Mother(V17.49, Z82.49) Status:Active Family history of malignant neoplasm: Grandparent(V16.9, Z80.9) Status:Active Family history of cardiac di sorder: Grandparent(V17.49, Z82.49) Status:Active Family history of diabetes m ellitus: Grandparent, Maternal Grandfather(V18.0, Z83.3) Status:Active Family history of cerebrovas cular accident (CVA): Grandparent, Sister(V17.1, Z82.3) Status:Active Family history of malignant neoplasm of breast: Grandparent, Paternal Grandmother(V16.3, Z80.3) Status:Active Family history of malignant neoplasm of colon: Maternal Grandmother(V16.0, Z80.0) Status:Active Family history of arthritis: Maternal Grandfather(V17.7, Z82.61) Status:Active Unknown Family Member Name Dates Details Family history of hypertensi on: Mother(V17.49, Z82.49) Status:Active Family history of malignant neoplasm: Grandparent(V16.9, Z80.9) Status:Active Family history of cardiac di sorder: Grandparent(V17.49, Z82.49) Status:Active Family history of diabetes m ellitus: Grandparent, Maternal Grandfather(V18.0, Z83.3) Status:Active Family history of cerebrovas cular accident (CVA): Grandparent, Sister(V17.1, Z82.3) Status:Active Family history of malignant neoplasm of breast: Grandparent, Paternal Grandmother(V16.3, Z80.3) Status:Active Family history of malignant neoplasm of colon: Maternal Grandmother(V16.0, Z80.0) Status:Active Family history of arthritis: Maternal Grandfather(V17.7, Z82.61) Status:Active Unknown Family Member Name Dates Details Family history of hypertensi on: Mother(V17.49, Z82.49) Status:Active Family history of malignant neoplasm: Grandparent(V16.9, Z80.9) Status:Active Family history of cardiac di sorder: Grandparent(V17.49, Z82.49) Status:Active Family history of diabetes m ellitus: Grandparent, Maternal Grandfather(V18.0, Z83.3) Status:Active Family history of cerebrovas cular accident (CVA): Grandparent, Sister(V17.1, Z82.3) Status:Active Family history of malignant neoplasm of breast: Grandparent, Paternal Grandmother(V16.3, Z80.3) Status:Active Family history of malignant neoplasm of colon: Maternal Grandmother(V16.0, Z80.0) Status:Active Family history of arthritis: Maternal Grandfather(V17.7, Z82.61) Status:Active Unknown Family Member Name Dates Details Family history of hypertensi on: Mother(V17.49, Z82.49) Status:Active Family history of malignant neoplasm: Grandparent(V16.9, Z80.9) Status:Active Family history of cardiac di sorder: Grandparent(V17.49, Z82.49) Status:Active Family history of diabetes m ellitus: Grandparent, Maternal Grandfather(V18.0, Z83.3) Status:Active Family history of cerebrovas cular accident (CVA): Grandparent, Sister(V17.1, Z82.3) Status:Active Family history of malignant neoplasm of breast: Grandparent, Paternal Grandmother(V16.3, Z80.3) Status:Active Family history of malignant neoplasm of colon: Maternal Grandmother(V16.0, Z80.0) Status:Active Family history of arthritis: Maternal Grandfather(V17.7, Z82.61) Status:Active Unknown Family Member Name Dates Details Family history of hypertensi on: Mother(V17.49, Z82.49) Status:Active Family history of malignant neoplasm: Grandparent(V16.9, Z80.9) Status:Active Family history of cardiac di sorder: Grandparent(V17.49, Z82.49) Status:Active Family history of diabetes m ellitus: Grandparent, Maternal Grandfather(V18.0, Z83.3) Status:Active Family history of cerebrovas cular accident (CVA): Grandparent, Sister(V17.1, Z82.3) Status:Active Family history of malignant neoplasm of breast: Grandparent, Paternal Grandmother(V16.3, Z80.3) Status:Active Family history of malignant neoplasm of colon: Maternal Grandmother(V16.0, Z80.0) Status:Active Family history of arthritis: Maternal Grandfather(V17.7, Z82.61) Status:Active Unknown Family Member Name Dates Details Family history of hypertensi on: Mother(V17.49, Z82.49) Status:Active Family history of malignant neoplasm: Grandparent(V16.9, Z80.9) Status:Active Family history of cardiac di sorder: Grandparent(V17.49, Z82.49) Status:Active Family history of diabetes m ellitus: Grandparent, Maternal Grandfather(V18.0, Z83.3) Status:Active Family history of cerebrovas cular accident (CVA): Grandparent, Sister(V17.1, Z82.3) Status:Active Family history of malignant neoplasm of breast: Grandparent, Paternal Grandmother(V16.3, Z80.3) Status:Active Family history of malignant neoplasm of colon: Maternal Grandmother(V16.0, Z80.0) Status:Active Family history of arthritis: Maternal Grandfather(V17.7, Z82.61) Status:Active Advance Directives No Advanced Directives Records FoundDocuments on File Type Date Recorded Patient Block Cableman Expl anation Advance Directives/Living Will 09/27/2016 12:21 PM Documents on File Type Date Recorded Patient Block Cableman Expl anation Advance Directives/Living Will 09/27/2016 12:21 PM Documents on File Type Date Recorded Patient Block Cableman Expl anation Advance Directives and Livin g Will 05/08/2021 12:00 AM Documents on File Type Date Recorded Patient Block Cableman Expl anation Advance Directive(s) Advance Directive(s) 01/07/2020 10:10 AM Advance Directive(s) 09/26/2019 1:06 PM Advance Directive(s) 12/22/2018 8:21 AM Discharge Instructions The following attachments cannot be sent through Care Everywhere. * Sore Throat, When You Have a (Malaysian) in this encounter* Attachments The following attachments cannot be sent through Care Everywhere. * Anxiety Disorder (Malaysian) * Generalized Anxiety Disorder: General Info (Malaysian) documented in this encounter* Attachments The following attachments cannot be sent through [facility] Everywhere. * Abdominal Pain (Malaysian) * Rectal Bleeding (Malaysian) documented in this encounter* Instructions* Iván Antunez MD - 06/04/2019 Rest today. Return to the ER immediately or dial 911 if you develop increased or different pain, fever, uncontrolled vomiting, or feel worse in any way. * Attachments The following attachments cannot be sent through Care Everywhere. * Abdominal Pain (Malaysian) documented in this encounter Assessments Diagnosis Viral pharyngitis - Primary Acute pharyngitis Diagnosis Neoplasm of uncertain behavior of skin- Primary Skin tags, multiple acquired Diagnosis Skin tags, multiple acquired- Primary Diagnosis Anxiety- Primary Anxiety state, unspecified Diagnosis Lower abdominal pain- Primary Abdominal pain, other specified site Rectal bleeding Hemorrhage of rectum and anus Diagnosis Upper abdominal pain- Primary Abdominal pain, other specified site History of Present Illness * Geoffrey Mariee DO - 01/17/2019 9:30 AM EDT Plastic and Reconstructive Surgery Consultation Reason for Consultation: HPI: Ms. Dominguez is a 43 y.o. female. She presents for evaluation of skin lesions. Location: face, neck, axillae Duration: unknown Symptoms: irritated by clothing Prior treatments: None Review of Systems: Chief Complaint Chief Complaint Patient presents with Skin Lesion right cheek Vitals Temperature 98.1 F (36.7 C), temperature source Temporal, height 1.676 m (5' 6 ), weight (!) 139.7 kg (307 lb 14.4 oz). Body mass index is 49.7 kg/m . ROS General Plastics Review of Systems: Do you have any of the following: Chills, Fatigue, Fever or Night Sweats: no. Ear pain or eye discharge: no. Hearing loss or visual changes: no. Sore throat or chronic cough: no. Shortness of breath: no. Chest pain, swelling, or heart palpitations: no. Abdominal pain: no. Constipation or diarrhea: yes. Heartburn or Nausea: no. Rash or skin problems: lesion on right cheek, skin tags. Breast: lumps, tenderness, discharge: yes. Dizziness or numbness: no. Headaches or Migraines: no. Seizures: no. Joint pain, joint swelling or muscle weakness: fibromyalgia. Bruise or bleed easily: low dose aspirin. Any swollen lymph nodes: no. Numbness, weakness, tingling, shooting pain ; no. Fever blisters/cold sores: no Here for lesion on right cheek, present for 6 months. Patient denies pain to site at present. Patient also has multiple skin tags that cause discomfort at times, she wishes to have evaluated today. Physical Examination height is 1.676 m (5' 6 ) and weight is 139.7 kg (307 lb 14.4 oz) (abnormal). Her temporal temperature is 98.1 F (36.7 C). Estimated body mass index is 49.7 kg/m as calculated from the following: Height as of this encounter: 1.676 m (5' 6 ). Weight as of this encounter: 139.7 kg (307 lb 14.4 oz). General: NAD, well appearing HEENT: NC/AT, CN 2-12 grossly intact, V1-V3 grossly intact, no LAD Neck: Pigmented nevus anterior neck, since , no changes. Chest: No dyspnea Abdomen: No discomfort Extremities: Neurovascularly intact Skin: Small punctate lesion right cheek in area of prior excision, possible suture granuloma. Multiple scattered skin tags. Assessment, Plan I discussed that the lesion may be: possible suture granuloma right cheek; scattered skin tags. I discussed cryotx of the skin tag lesions and biopsy of the right cheek lesion with the patient. I discussed that this could be performed at: clinic treatment room. I discussed risks including but not limited to: bleeding, infection, hematoma, seroma, wound breakdown, scar, need for further surgery, deformity, pain, numbness, recurrence, weakness, asymmetry, injury to structures, and medical complications. I discussed the insurance approval process, and the possible need to pay out of pocket if not approved. The patient would like to proceed and therefore we will initiate the insurance approval process. * Doreen Hidalgo - 01/17/2019 9:30 AM EDT Chief Complaint Chief Complaint Patient presents with Skin Lesion right cheek Vitals Temperature 98.1 F (36.7 C), temperature source Temporal, height 1.676 m (5' 6 ), weight (!) 139.7 kg (307 lb 14.4 oz). Body mass index is 49.7 kg/m . [facility] General Plastics Review of Systems: Do you have any of the following: Chills, Fatigue, Fever or Night Sweats: no. Ear pain or eye discharge: no. Hearing loss or visual changes: no. Sore throat or chronic cough: no. Shortness of breath: no. Chest pain, swelling, or heart palpitations: no. Abdominal pain: no. Constipation or diarrhea: yes. Heartburn or Nausea: no. Rash or skin problems: lesion on right cheek, skin tags. Breast: lumps, tenderness, discharge: yes. Dizziness or numbness: no. Headaches or Migraines: no. Seizures: no. Joint pain, joint swelling or muscle weakness: fibromyalgia. Bruise or bleed easily: low dose aspirin. Any swollen lymph nodes: no. Numbness, weakness, tingling, shooting pain ; no. Fever blisters/cold sores: no Here for lesion on right cheek, present for 6 months. Patient denies pain to site at present. Patient also has multiple skin tags that cause discomfort at times, she wishes to have evaluated today. documented in this encounter* Richi Flores LPN - 01/29/2019 10:30 AM EDT Chief Complaint Chief Complaint Patient presents with Procedure cryotx and biopsy Vitals Temperature 97.7 F (36.5 C), temperature source Temporal, height 1.676 m (5' 6 ), weight (!) 138.9 kg (306 lb 3.2 oz). Body mass index is 49.42 kg/m . [facility] General Plastics Review of Systems: Do you have any of the following: Chills, Fatigue, Fever or Night Sweats: no. Ear pain or eye discharge: no. Hearing loss or visual changes: no. Sore throat or chronic cough: no. Shortness of breath: no. Chest pain, swelling, or heart palpitations: no. Abdominal pain: no. Constipation or diarrhea: no. Heartburn or Nausea: no. Rash or skin problems: no. Breast: lumps, tenderness, discharge: states has mammograms every 6 months and followed by [facility].. Dizziness or numbness: no. Headaches or Migraines: no. Seizures: no. Joint pain, joint swelling or muscle weakness: Hx of Fibromyalgia, Rheumatoid and Osteo arthritis.. Bruise or bleed easily: states bruises easily.. Any swollen lymph nodes: no. Numbness, weakness, tingling, shooting pain ; no. Fever blisters/cold sores: Hx of cold sores. Here for cryotx to scattered skin tags and biopsy of lesion on the right cheek. Patient states the lesion on the right cheek has resolved. documented in this encounter Reason for Referral Status Reason Specialty Diagnoses / Procedures Referred By Contact Referred To Contact New Request Procedures ECG Matt Melissa PA-C [address] [place] [address] Status Reason Specialty Diagnoses / Procedures Referred By Contact Referred To Contact New Request General Surgery Diagnoses Lower abdominal pain Rectal bleeding Praful Perez PA-C [address] [place], [place] [id number] Angel Marie MD [address] [place] [address] Status Reason Specialty Diagnoses / Procedures Referred By Contact Referred To Contact New Request Procedures US ABDOMEN RUQ/LIVER/GB Iván Antunez MD [address] [place], [place] [id number] Status Reason Specialty Diagnoses / Procedures Referred By Contact Referred To Contact New Request Procedures LIPASE Iván Antunez MD [address] [place], [place] [id number] Specialty Diagnoses / Procedures Referred By Contac t Referred To Contact General Surgery Diagnoses Blood in stool Santo Castillo DO [address] [facility] [address] [place] [address] [facility] [address] [facility] Office Building, 5th [place] [address] Referral ID Status Reason Start Date Expiration Date V isits Requested Visits Authorized [id number] Authorized 05/08/2021 05/08/2022 1 1 Specialty Diagnoses / Procedures Referred By Contac t Referred To Contact Diagnoses Type 2 diabetes mellitus without complication, without long-term current use of insulin Gastroesophageal reflux disease, unspecified whether esophagitis present Fatty liver Mild asthma without complication, unspecified whether persistent Irritable bowel syndrome with both constipation and diarrhea Hyperlipidemia, unspecified hyperlipidemia type Fibromyalgia Procedures ECG Rosa Coe, HANDBAG FRAMES INSPECTOR [address] [place] [id number] Referral ID Status Reason Start Date Expiration Date V isits Requested Visits Authorized [id number] New Request 12/03/2021 12/28/2022 1 1 Specialty Diagnoses / Procedures Referred By Contac t Referred To Contact Sleep Medicine Diagnoses Type 2 diabetes mellitus without complication, without long-term current use of insulin Gastroesophageal reflux disease, unspecified whether esophagitis present Fatty liver Mild asthma without complication, unspecified whether persistent Irritable bowel syndrome with both constipation and diarrhea Hyperlipidemia, unspecified hyperlipidemia type Fibromyalgia Rosa Coe CNP [address] [place] [id number] Candace Mendez, TELECOMMUNICATIONS PROJECT MANAGER-HANDBAG FRAMES INSPECTOR [address] [place] [address] Referral ID Status Reason Start Date Expiration Date V isits Requested Visits Authorized [id number] New Request 12/03/2021 12/28/2022 1 1 Specialty Diagnoses / Procedures Referred By Contac t Referred To Contact Psychology Diagnoses Type 2 diabetes mellitus without complication, without long-term current use of insulin Gastroesophageal reflux disease, unspecified whether esophagitis present Fatty liver Mild asthma without complication, unspecified whether persistent Irritable bowel syndrome with both constipation and diarrhea Hyperlipidemia, unspecified hyperlipidemia type Fibromyalgia Rosa Coe, HANDBAG FRAMES INSPECTOR [address] [place] [address] Chin Bah, PsyD [address] [place] [address] Referral ID Status Reason Start Date Expiration Date V isits Requested Visits Authorized [id number] Auth Not Needed 12/03/2021 12/28/2022 1 1 Specialty Diagnoses / Procedures Referred By Contac t Referred To Contact Nutrition and Dietetics Diagnoses Type 2 diabetes mellitus without complication, without long-term current use of insulin Gastroesophageal reflux disease, unspecified whether esophagitis present Fatty liver Mild asthma without complication, unspecified whether persistent Irritable bowel syndrome with both constipation and diarrhea Hyperlipidemia, unspecified hyperlipidemia type Fibromyalgia Rosa Coe, HANDBAG FRAMES INSPECTOR [address] [place] [address] Referral ID Status Reason Start Date Expiration Date V isits Requested Visits Authorized [id number] New Request 12/03/2021 12/28/2022 1 1 Specialty Diagnoses / Procedures Referred By Contac t Referred To Contact Diagnoses Sleep apnea, unspecified type Snoring Overweight Fatigue, unspecified type Morning headache Bruxism Night terrors Procedures SCHEDULE HOME SLEEP STUDY Candace Mendez, TELECOMMUNICATIONS PROJECT MANAGER-HANDBAG FRAMES INSPECTOR [address] [address] Referral ID Status Reason Start Date Expiration Date V isits Requested Visits Authorized [id number] New Request 12/31/2021 01/25/2023 1 1 Specialty Diagnoses / Procedures Referred By Contac t Referred To Contact Diagnoses Morbid obesity with body mass index of 50 or higher Gastroesophageal reflux disease, unspecified whether esophagitis present Procedures DIAGNOSTIC UPPER ENDOSCOPY ID ESOPHAGOGASTRODUODENOSCOPY TRANSORAL DIAGNOSTIC Mahad Dent, DO [address] [place] [address] Referral ID Status Reason Start Date Expiration Date V isits Requested Visits Authorized [id number] New Request 03/03/2022 03/28/2023 1 1 Referral ID Status Reason Start Date Expiration Date V isits Requested Visits Authorized [id number] Auth Not Needed 03/03/2022 03/28/2023 1 1 Specialty Diagnoses / Procedures Referred By Wyatt de la vega Referred To Contact Otolaryngology Diagnoses Thyroid nodule Santo CastilloDO [address] [facility] [address] [place] [address] Whitley Tinajero MD [facility] [address] [place] [address] Referral ID Status Reason Start Date Expiration Date V isits Requested Visits Authorized [id number] Authorized 09/02/2022 09/02/2023 1 1 Chief Complaint 3 Month recheck Having a lot of pain from the weather with fibromyalgia and arthritis3 Month recheck Having a lot of pain from the weather with fibromyalgia and arthritisFollow up Did go see the Gastro He does not feel she needs a Colonoscopy at this time Suggested weight lossFollow up Did go see the Gastro He does not feel she needs a Colonoscopy at this time Suggested weight lossWork is requiring her to have the Covid shot. She is scared to get it due to her reactions to different thingsbruising on right ankle not aware of injury. Both feet lock up when on feet a lot. Like a charleyhorsePatient presents for 3 month recheck. States she is still having discomfort in her right foot due to bone spurs. Serves no further complaints.* A telephone visit (audio only) between the patient (at the originating site) and the provider (at the distant site) was utilized to provide this telehealth service. * Verbal consent was requested and obtained from JOHN DOMINGUEZ on this date, 07/16/2022 10:40 AM , for a telehealth visit. * Pt has C/O sinus MELGOZA and congestion that started yesterday. * A telephone visit (audio only) between the patient (at the originating site) and the provider (at the distant site) was utilized to provide this telehealth service. * Verbal consent was requested and obtained from JOHN DOMINGUEZ on this date, 09/07/2022 08:20 AM , for a telehealth visit. * discuss test results. Is confused on some of them and would like clarification Additional Source Comments INFORMATION SOURCE (unrecogn ized section and content) DATE CREATED AUTHOR AUTHOR'S ORGANIZ ATION 06/15/2018 [facility] DATE CREATED AUTHOR AUTHOR'S ORGANIZ ATION 08/17/2018 [facility] DATE CREATED AUTHOR AUTHOR'S ORGANIZ ATION 05/09/2021 [facility] DATE CREATED AUTHOR AUTHOR'S ORGANIZ ATION 06/04/2022 [facility] DATE CREATED AUTHOR AUTHOR'S ORGANIZ ATION 09/07/2022 [facility] DATE CREATED AUTHOR AUTHOR'S ORGANIZ ATION 01/18/2023 [facility] DATE CREATED AUTHOR AUTHOR'S ORGANIZ ATION 01/19/2023 [facility] DATE CREATED AUTHOR AUTHOR'S ORGANIZ ATION 01/28/2023 [facility] DATE CREATED AUTHOR AUTHOR'S ORGANIZ ATION 01/30/2023 [facility] DATE CREATED AUTHOR AUTHOR'S ORGANIZ ATION 04/24/2023 [facility] DATE CREATED AUTHOR AUTHOR'S ORGANIZ ATION 04/25/2023 [facility] DATE CREATED AUTHOR AUTHOR'S ORGANIZ ATION 07/03/2023 [facility] DATE CREATED AUTHOR AUTHOR'S ORGANIZ ATION 08/19/2023 [facility] Reason for Visit (unrecogniz ed section and content) Specialty Diagnoses / Procedures Referred By Contmalia t Referred To Contact Registered Dietitian / Nutrition and Dietetics Diagnoses Bariatric Clinic 2nd NUT Final ([facility]) Procedures FOLLOW-UP - CLYDE Self, Self Yuriy You, RD [address] [place] [address] Referral ID Status Reason Start Date Expiration Date V isits Requested Visits Authorized [id number] New Request 06/25/2022 07/20/2023 1 1 Reason Comments Sore Throat pt c/o a lump in t he LEFT side of her throat which she has an appt with [facility] on tuesday. pt c/o her throat being scratchy this morning with nausea. Reason Comments Skin Lesion right cheek Reason Comments Insurance Reason Comments Procedure cryotx and biopsy Reason Comments Anxiety Anxiety started at a round 0930 this morning after phone call from sister in law. 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 Rates pain 5/10. Reason Comments Abdominal Pain Reason Comments Flank Pain right flank pain int o lower right abdomen. being going on for a week but now its sharp shooting pains Abdominal Pain Reason Comments Other post procedure follo w up call Reason Comments Consult Bariatric Consult. P doyle has [employer] for insurance. Reason Comments New Patient Pre op bariatric, sn oring Specialty Diagnoses / Procedures Referred By Wyatt de la vega Referred To Contact Sleep Medicine Diagnoses Type 2 diabetes mellitus without complication, without long-term current use of insulin Gastroesophageal reflux disease, unspecified whether esophagitis present Fatty liver Mild asthma without complication, unspecified whether persistent Irritable bowel syndrome with both constipation and diarrhea Hyperlipidemia, unspecified hyperlipidemia type Fibromyalgia Rosa Coe, HANDBAG FRAMES INSPECTOR [address] [place], [place] [phone] Candace Mendez, TELECOMMUNICATIONS PROJECT MANAGER-HANDBAG FRAMES INSPECTOR [address] [place], [place] [id number] Referral ID Status Reason Start Date Expiration Date Visits Re quested Visits Authorized [id number] Closed 12/03/2021 12/28/2022 1 1 Specialty Diagnoses / Procedures Referred By Wyatt de la vega Referred To Contact Nutrition and Dietetics Diagnoses Type 2 diabetes mellitus without complication, without long-term current use of insulin Gastroesophageal reflux disease, unspecified whether esophagitis present Fatty liver Mild asthma without complication, unspecified whether persistent Irritable bowel syndrome with both constipation and diarrhea Hyperlipidemia, unspecified hyperlipidemia type Fibromyalgia Rosa Coe, HANDBAG FRAMES INSPECTOR [address] [place], [place] [address] Referral ID Status Reason Start Date Expiration Date V isits Requested Visits Authorized [id number] New Request 12/03/2021 12/28/2022 15 15 Reason Comments New Patient Eating Disorder Specialty Diagnoses / Procedures Referred By Wyatt de la vega Referred To Contact Psychology Diagnoses Type 2 diabetes mellitus without complication, without long-term current use of insulin Gastroesophageal reflux disease, unspecified whether esophagitis present Fatty liver Mild asthma without complication, unspecified whether persistent Irritable bowel syndrome with both constipation and diarrhea Hyperlipidemia, unspecified hyperlipidemia type Fibromyalgia Rosa Coe, HANDBAG FRAMES INSPECTOR [address] [place] [address] Chin Bah, AmrityD [address] [place] [address] Referral ID Status Reason Start Date Expiration Date V isits Requested Visits Authorized [id number] Auth Not Needed 12/03/2021 12/28/2022 15 15 Reason Comments Ankle Pain To ED with c/o right ankle pain for a couple days. Patient states it hurts worse today after twisting it Reason Comments Ankle Pain Pt states seen here yesterday for ankle injury and was told to get crutches; pt states she cannot find any and thinks she is making it worse by walking on it Referral ID Status Reason Start Date Expiration Date V isits Requested Visits Authorized [id number] Pending Review 12/03/2021 12/28/2022 15 15 Reason Onset Date Comments Appointment 02/02/2022 Reason Comments New Patient Consult Bariatric Reason Comments Leg Pain RIGHT lower leg pain x 2 months, no trauma Reason Comments Follow-up Eating Disorder Reason Onset Date Comments Other 04/22/2022 Reason Comments Sore Throat With left ear pain x 3 days Reason Comments Abdominal Pain Pt states abd discom fort that she also feels wraps around to her back on both sides; pt states she felt like she had to have a bm this morning went to the restroom and when she stood up noticed blood clots and blood in the toilet Specialty Diagnoses / Procedures Referred By Wyatt de la vega Referred To Contact Registered Dietitian / Nutrition and Dietetics Diagnoses L phone call #8 Procedures RETURN TELEPHONE PROVIDER-Kvng Hercules Isaac, RD [address] [place] [address] Referral ID Status Reason Start Date Expiration Date V isits Requested Visits Authorized [id number] New Request 07/16/2022 08/10/2023 1 1 Specialty Diagnoses / Procedures Referred By Wyatt de la vega Referred To Contact Diagnoses Morbid obesity with body mass index of 50 or higher Gastroesophageal reflux disease, unspecified whether esophagitis present Procedures DIAGNOSTIC UPPER ENDOSCOPY ID ESOPHAGOGASTRODUODENOSCOPY TRANSORAL DIAGNOSTIC Mahad Dent, DO [address] [place] [address] Referral ID Status Reason Start Date Expiration Date V isits Requested Visits Authorized [id number] Auth Not Needed 03/03/2022 03/28/2023 1 1 Specialty Diagnoses / Procedures Referred By Contac t Referred To Contact Registered Dietitian / Nutrition and Dietetics Diagnoses SWL #9 ([facility]) Telephone Call Procedures RETURN TELE CLIN STAFF-CLYDE Kvng, Yuriy Wells, RD [address] [place] [address] Referral ID Status Reason Start Date Expiration Date V isits Requested Visits Authorized [id number] Pending Review 08/16/2022 09/10/2023 1 1 Reason Comments Back Pain ER Follow-up <item><item><item><item> Privacy Markings (unrecogniz ed section and content) Section Author: Kate Alcazar PROHIBITION ON REDISCLOSURE OF CONFIDENTIAL INFORMATION This notice accompanies a disclosure of information concerning a client made to you with the consent of such client. Section Author: Kate Alcazar PROHIBITION ON REDISCLOSURE OF CONFIDENTIAL INFORMATION This notice accompanies a disclosure of information concerning a client made to you with the consent of such client. Section Author: Kate Alcazar PROHIBITION ON REDISCLOSURE OF CONFIDENTIAL INFORMATION This notice accompanies a disclosure of information concerning a client made to you with the consent of such client. Section Author: Kate Alcazar PROHIBITION ON REDISCLOSURE OF CONFIDENTIAL INFORMATION This notice accompanies a disclosure of information concerning a client made to you with the consent of such client. Care Teams (unrecognized sec tion and content) Dish Up Person Relationship Specialty Start Date End Date Cheryl Simpson MD [address] [place] [phone] PCP - General Internal Medicine 12/21/17 Dish Up Person Relationship Specialty Start Date End Date Cheryl Simpson MD [address] [place] [phone] PCP - General Internal Medicine 12/21/17 Dish Up Person Relationship Specialty Start Date End Date Santo Castillo DO [address] [place] [address] PCP - General Family Medicine 12/31/21 Dish Up Person Relationship Specialty Start Date End Date Santo Castillo DO [address] [place] [address] PCP - General Family Medicine 12/31/21 Dish Up Person Relationship Specialty Start Date End Date Cheryl Simpson MD [address] [place] [phone] PCP - General Internal Medicine 12/21/17 12/30/21 Dish Up Person Relationship Specialty Start Date End Date Cheryl Simpson MD [address] [place] [address] PCP - General 08/02/06 Dish Up Person Relationship Specialty Start Date End Date Santo Castillo DO [address] [place] [address] PCP - General Family Medicine 12/31/21 Dish Up Person Relationship Specialty Start Date End Date Santo Castillo DO [address] [place] [address] PCP - General Family Medicine 12/31/21 Dish Up Person Relationship Specialty Start Date End Date Santo Castillo DO [address] [place] [address] PCP - General Family Medicine 12/31/21 Dish Up Person Relationship Specialty Start Date End Date Santo Castillo DO [address] [place] [address] PCP - General Family Medicine 12/31/21 Dish Up Person Relationship Specialty Start Date End Date Santo Castillo DO [address] [place] [address] PCP - General Family Medicine 12/31/21 Dish Up Person Relationship Specialty Start Date End Date Santo Castillo DO [address] [place] [address] PCP - General Family Medicine 12/31/21 Dish Up Person Relationship Specialty Start Date End Date Santo Castillo DO [address] [place] [address] PCP - General Family Medicine 12/31/21 Dish Up Person Relationship Specialty Start Date End Date Santo Castillo DO [address] [place] [address] PCP - General Family Medicine 12/31/21 Dish Up Person Relationship Specialty Start Date End Date Santo Castillo DO [address] [place] [address] PCP - General Family Medicine 12/31/21 Dish Up Person Relationship Specialty Start Date End Date Santo Castillo DO [address] [place] [address] PCP - General Family Medicine 12/31/21 Dish Up Person Relationship Specialty Start Date End Date Santo Castillo DO [address] [place] [address] PCP - General Family Medicine 12/31/21 Dish Up Person Relationship Specialty Start Date End Date Santo Castillo DO [address] [address] PCP - General Family Medicine 06/15/22 Santo Castillo DO [address] [address] Referring Physician Family Medicine 05/08/21 Dish Up Person Relationship Specialty Start Date End Date Santo Castillo DO [address] [address] PCP - General 09/08/20 Santo Castillo DO [address] [address] PCP - [facility] PCP 08/08/21 Dish Up Person Relationship Specialty Start Date End Date Santo Castillo DO [address] [facility] [address] [place] [address] PCP - General 09/08/20 Santo Castillo DO [address] [facility] [address] [place] [address] PCP - Kervin FRIEDO PCP 08/08/21 Santo Castillo [address] [facility] [address] [place] [address] PCP - [facility] Medicaid PCP 11/06/22 Source Comments (unrecognize d section and content) In the event this informatio n is protected by the Federal Confidentiality of Alcohol and Drug Abuse Patient Records regulations: The Federal rules restrict any use of the information to criminally investigate or prosecute any alcohol or drug abuse patient.[facility] Scheduled Active and Recently Administ ered Medications (unrecognized section and content) Scheduled Medication Order 05/10/2022 05/11/2022 05/12/2022 lactated ringers IV solution 500 mL (COMPLETED) 500 mL, Intravenous, ONCE, 1 dose, On Tue05/12/22 at 1145 1130 ($$New Bag$$ - Provider: Chery Sheehan RN)1405 (Stopped - Provider: Chery Sheehan RN) ondansetron 4mg/2ml (ZOFRAN) injection 4 mg (COMPLETED) 4 mg, Intravenous, ONCE, 1 dose, On Tue05/12/22 at 1145 1129 (Given - Provid er: Chery Sheehan RN) pantoprazole (PROTONIX) injection 40 mg (COMPLETED) 40 mg, Intravenous, ONCE, 1 dose, On Tue05/12/22 at 1145, Dilute each 40 mg vial with 10 mL of NS. All bolus doses, whether 40 mg or 80 mg, should be administered over at least two minutes., Indications: Inpt Stress Ulcer Prophylaxis 1129 (Given - Provid er: Chery Sheehan RN) FOR RECORDS PERTAINING TO PATIENTS WHO ARE OR HAVE BEEN ENROLLED IN A CHEMICAL DEPENDENCY/SUBSTANCEABUSE PROGRAM, SOME INFORMATION MAY BE OMITTED. This clinical summary was aggregated from multiple sources. Caution should be exercised in using it in the provision of clinical care. This summary normalizes information from multiple sources, and as a consequence, information in this document may materially change the coding, format and clinical context of patient data. In addition, data may be omitted in some cases. CLINICAL DECISIONS SHOULD BE BASED ON THE PRIMARY CLINICAL RECORDS. [employer] provides no warranty or guarantee of the accuracy or completeness of information in this document.
== END 2023-08-22 13:49 | disposition left against medical advice (07) ==
LOC: ED 13:57
PROVIDERS: PCP Student in an Organized Health Care Education/Training Program
DX: K92.2 Gastrointestinal hemorrhage, unspecified (principal)